=== PATIENT | male | born 1950 | race Caucasian/White ===

== ENCOUNTER 2024-01-14 18:58 | Emergency (ER) | payer MEDICARE, OTHER, SELFPAY ==
[2024-01-14 19:00] VITALS: BP 140/75
[2024-01-14] MEDS: ADACEL 0.5 ML IM (21:39)
--- NOTE | 2024-01-14 22:56 | ED.SKININJ ---
HPI-Injury
General
Chief Complaint: Skin Surface Trauma
Source: patient
Exam Limitations: none
Time Seen by Provider: 01/14/24 20:50
Nursing documentation reviewed up to this point in time: agreed with
Travel History
Have you had any contact with someone who has COVID-19?: No
Do you have any symptoms of coronavirus? Fever > 100 degrees, chills, cough, shortness of breath, sore throat, loss of taste or smell, muscle aches, or headache?: No
History of Present Illness-Injury
Is this injury a work related problem?: No
Is pt an associate of [facility]?: No
Initial Injury comments:
Accidentally cut finger with knife. Unable to get bleeding to stop. On xarelto for afib. Injury occurred this afternoon. Brought self to ED for eval.
Past History
Past History
ED Past Medical History: Arrthythmia (afib), Cancer (prostate CA) and HTN
ED Past Surgical History: Cardiac (cardioversion), Orthopedic and Other (Hip surgery. prostate surgery, )
Social History
Tobacco: Non-smoker
Drug: None
Living: with family
Family History
Family History: Other (No significant)
Review of Systems
Review of Systems
Allergies reviewed?: Yes
All Other Systems: ROS reviewed and negative except as documented in HPI and ROS
Constitutional: Reports no symptoms
Musculoskeletal: Reports no symptoms
Skin: Reports other (laceration to left distal index finger)
Neurological: Reports no symptoms
Psychiatric: Reports no symptoms
Skin Exam
Laceration
Left Distal Second Finger:
Length in cm: 1
Orientation: diagonal
Type of Laceration: simple
Any active bleeding?: no active bleeding
Distal skin color and temperature: normal-warm & good color
Normal distal neurovascular exam: Yes
Range of motion: full
Phy Exam
General Physical Exam
General Presentation: well appearing and no apparent distress
General age: appears stated age
General Skin: warm and dry
General Habitus: normal
General Mental: alert
Musculoskeletal Exam
Musculoskeletal Exam: full ROM and neuro vasc intact
Skin Exam
Skin Exam: normal color, warm/dry and no rash
Psychiatric Exam
Psychiatric Exam: normal mood/affect
Course
Orders/Labs/Results
Orders:
Orders
01/14/24 20:17
Acetaminophen [Tylenol] 1,000 mg .ROUTE .STK-MED ONE
01/14/24 21:24
Aluminium Finger Splint Left ONCE
Tetanus/Diphth/Acelpertussis [Adacel] 0.5 ml IM .ONCE ONE
Vital Signs
Initial and Last Documented VS:
Initial Vital Signs
Temp Pulse Resp BP Pulse Ox
98.4 F 52 16 140/75 98
01/14/24 19:00 01/14/24 19:00 01/14/24 19:00 01/14/24 19:00 01/14/24 19:00
Last Documented Vital Signs
Temp Pulse Resp BP Pulse Ox
98.4 F 52 16 140/75 98
01/14/24 19:00 01/14/24 19:00 01/14/24 19:00 01/14/24 19:00 01/14/24 19:00
Procedures
Laceration Closure
Left Distal Second Finger:
Status of Wound: clean
Description of Wound Edges: sharp
Preparation: cleaned with saline
Revision/Debridement: routine- no revision
Wound exploration: explored to base- no FB
Type of Closure: Dermabond-skin glue
*Critical Care Note
Total Time (30-74mins, 75-104mins- exclusive of procedures): Not Applicable
ED Attending Note
-
Portions of this chart may have been created with voice recognition software.� Occasional wrong word or��sound alike� substitutions may have occurred due to the inherent limitations of voice recognition software.
Discharge Plan
Departure
Patient Disposition: Home (Routine Discharge)
Date of Disposition: 01/14/24
Time of Disposition: 21:25
Patient with high blood pressure during this ER visit?: No
Condition: Good
Covid-19: Not Applicable
Discharge Problem:
Finger laceration
Instructions: Laceration Repair With Glue (DC)
Prescriptions:
No Action
therapeutic multivitamin Tablet
1 tab PO DAILY
paroxetine HCl 40 mg Tablet
40 mg PO DAILY
acetaminophen 500 mg Capsule
1,000 mg PO Q4HPRN PRN (Reason: mild pain)
omega 4-usq-dyk-fish oil [Fish Oil] 1,000 mg (120 mg-180 mg) Capsule
1 cap PO DAILY
Xarelto 20 mg Tablet
20 mg PO DAILY
Entresto 24-26 mg Tablet
0.5 tab PO BID
melatonin 3 mg Tablet
9 mg PO HS
metoprolol succinate 50 mg Tablet Extended Release 24 Hr
50 mg PO DAILY Qty: 30 0RF
cefdinir 300 mg capsule
300 mg PO BID Qty: 8 0RF
doxycycline hyclate 100 mg capsule
100 mg PO BID Qty: 0 0RF
Rx Instructions:
take it for 2 more days
Referrals:
Pauline James MD [Family Provider] - As needed
Interventions
Interventions:
*Risk Screen - Suicide Last Done: 01/14/24 19:00
*General Assessment Last Done: 01/14/24 19:00
*Neglect/Abuse Screening Last Done: 01/14/24 19:00
*Nursing Disposition Last Done: 01/14/24 21:53
ED-Skin Assessment Last Done: 01/14/24 21:52
Discharge Date and Time
Discharge Date/Time: 01/14/24 21:53
Print Language: COSTA RICAN
== END 2024-01-14 21:53 | disposition home or self-care (01) ==
LOC: EMR 18:58
PROVIDERS: EMERGENCY PHYSICIAN Emergency Medicine; FAMILY PHYSICIAN Internal Medicine
DX: S61.211A Laceration without foreign body of left index finger without damage to nail, initial encounter (principal); W26.0XXA Contact with knife, initial encounter; Z79.01 Long term (current) use of anticoagulants; Z23 Encounter for immunization
CPT/HCPCS: 99282; 90471; 12001; 90715

== ENCOUNTER 2024-06-01 11:09 | Emergency (ER) | payer MEDICARE, OTHER, SELFPAY ==
[2024-06-01 11:12] VITALS: BP 163/107
[2024-06-01 11:29] LABS: % Basophils 0.3 % (0-2); % Eosinophils 1.4 % (0-6); % Immature Granulocytes 0.3 % (0-0.5); % Lymphocytes 7.4 % (20.5-51.1); % Monocytes 8.1 % (1.7-9.3); % Neutrophils 82.5 % (42.2-75.2); Absolute Eosinophils 0.2 10^3/uL (0-0.7); Absolute Lymphocytes 0.8 10^3/uL (1.2-3.4); Absolute Monocytes 0.9 10^3/uL (0.1-0.6); Absolute Neutrophils 9.3 10^3/uL (1.4-6.5); Hematocrit 44.8 % (39.0-52.0); Hemoglobin 15.4 g/dL (13.0-18.0); Mean Corp Hgb Conc. 34.4 g/dL (33.0-37.0); Mean Corpuscular Hgb 31.4 pg (27.0-31.0); Mean Corpuscular Volume 91.4 fL (80.0-94.0); Mean Platelet Volume 9.7 fL (7.4-10.4); Nucleated Red Blood Cells % 0 % (-); Platelet Count 231 10^3/uL (130-400); Red Cell Dist. Width 12.5 % (11.5-14.5); White Blood Cell Count 11.3 10^3/uL (4.8-10.8)
[2024-06-01 11:44] LABS: ALT (SGPT) 19 U/L (0-50); AST (SGOT) 28 U/L (17-59); Albumin 4.7 g/dl (3.5-5.0); Alkaline Phosphatase 71 U/L (38-126); Blood Urea Nitrogen 14 mg/dl (9-20); Calcium 9.6 mg/dl (8.4-10.2); Carbon Dioxide 30 mmol/L (22-30); Chloride 100 mmol/L (98-107); Glucose 131 mg/dl (70-99); Potassium 5.1 mmol/L (3.5-5.1); Sodium 141 mmol/L (135-145); Total Bilirubin 1.3 mg/dl (0.2-1.3); Total Protein 7.3 g/dl (6.3-8.2); eGFR > 60.00
[2024-06-01 11:54] LABS: COVID-19 Antigen Negative (Negative)
[2024-06-01 13:04] VITALS: BMI 24.4
[2024-06-01] MEDS: DELTASONE 50 MG PO (13:10)
[2024-06-01] MEDS: DUONEB 3 ML INH (13:10)
--- NOTE | 2024-06-01 13:43 | ED.GENMED ---
History of Present Illness
General
Chief Complaint: Breathing Problem
Source: patient and spouse
Exam Limitations: none
Time Seen by Provider: 06/01/24 12:35
History of Present Illness
History of Present Illness:
74-year-old male who presents with cough, congestion and rattling in his chest. Patient and spouse states that the last time the patient progressed to pneumonia and they do not want that to happen. No fevers. Symptoms started Saturday. Has been
coughing up yellow sputum. Patient does admit to vaping daily
Past History
Past History
ED Past Medical History: Arrthythmia (afib), Cancer (prostate CA) and HTN
ED Past Surgical History: Cardiac (cardioversion), Orthopedic and Other (Hip surgery. prostate surgery, )
Social History
Tobacco: Vaping (Marijuana)
Drug: Marijuana
Living: with family
Family History
Family History: Other (No significant)
Phy Exam
Physical Exam
Physical Exam:
CONSTITUTIONAL Patient alert and oriented to person, place and time. Well-appearing. Vital signs reviewed.
HEAD atraumatic, normocephalic.
EYES eyelids normal to inspection, Pupils equally round and reactive to light, Extraocular muscles intact, Conjunctiva normal, Sclera normal.
NECK normal range of motion, Trachea midline, no jugular venous distention.
RESPIRATORY CHEST No respiratory distress noted, Chest expansion equal, wheezing bilaterally, scattered rhonchi.
BACK normal inspection, no obvious deformities
UPPER EXTREMITY range of motion normal, Motor strength normal, no cyanosis, no edema.
LOWER EXTREMITY range of motion normal, Motor strength normal, no cyanosis, no edema.
NEURO Speech normal, No focal motor deficits, [place] coma scale 15, Memory normal, Cranial Nerves intact to screening exam.
SKIN skin warm, dry, and normal in color.
PSYCHIATRIC patient oriented to person place and time, Normal affect.
Scores
Heart Failure Risk
Heart Failure Risk Score: Not Applicable
Course
Orders/Labs/Results
Orders:
Orders
06/01/24 11:14
Chest [CR Chest - 2 Views ] Urgent
Comment:
Reason For Exam: cough
06/01/24 11:19
COVID-19 Antigen Urgent
Source: Nasal Swab
06/01/24 11:22
Complete Blood Count/With Diff Urgent
Comprehensive Metabolic Panel Urgent
06/01/24 13:03
Ipratropium/Albuterol Sulfate [Duoneb] 3 ml INH R NOW STA
Prednisone [Deltasone] 50 mg PO NOW STA
06/01/24 13:44
LevoFLOXacin [Levaquin] 500 mg PO NOW STA
Abnormal Lab Results
06/01/24
11:22
WBC 11.3 H 10^3/uL
(4.8-10.8)
MCH 31.4 H pg
(27.0-31.0)
Absolute Neuts (auto) 9.3 H 10^3/uL
(1.4-6.5)
Absolute Lymphs (auto) 0.8 L 10^3/uL
(1.2-3.4)
Absolute Monos (auto) 0.9 H 10^3/uL
(0.1-0.6)
Neutrophils % 82.5 H %
(42.2-75.2)
Lymphocytes % 7.4 L %
(20.5-51.1)
Glucose 131 H mg/dl
(70-99)
06/01/24 11:22
06/01/24 11:22
Vital Signs
Initial and Last Documented VS:
Initial Vital Signs
Temp Pulse Resp BP Pulse Ox
97.5 F 104 20 163/107 93
06/01/24 11:12 06/01/24 11:12 06/01/24 11:12 06/01/24 11:12 06/01/24 11:12
Last Documented Vital Signs
Temp Pulse Resp BP Pulse Ox
97.5 F 97 18 133/85 93
06/01/24 11:12 06/01/24 14:11 06/01/24 14:11 06/01/24 14:11 06/01/24 14:11
MDM/Problems Addressed
MDM/Problems Addressed:
Reactive airway disease, bronchitis, possible early pneumonia
*Radiology
Radiology exam reviewed: preliminary read by ED provider and radiology read reviewed
*Pulse Oximetry
Patient hypoxic: yes (Mild, 94% on my evaluation)
*Critical Care Note
Total Time (30-74mins, 75-104mins- exclusive of procedures): Not Applicable
Data Reviewed
Source: patient and spouse
Further Testing Considered But Not Given:
Consider chest CT but will cover with antibiotics and steroids anyway
Patient Management
Escalation/DeEscalation of care consider admission/obs:
74-year-old male who vapes daily. Will cover with antibiotics, steroids and bronchodilators.
ED Attending Note
-
Portions of this chart may have been created with voice recognition software.� Occasional wrong word or��sound alike� substitutions may have occurred due to the inherent limitations of voice recognition software.
Discharge Plan
Departure
Patient Disposition: Home (Routine Discharge)
Date of Disposition: 06/01/24
Time of Disposition: 13:47
Patient with high blood pressure during this ER visit?: Yes
Discharge Problem:
Bronchitis, Exacerbation of reactive airway disease
Instructions: Wheezing, Acute bronchitis, BLOOD PRESSURE
Prescriptions:
New
prednisone 10 mg Tablet
See Rx Instructions .ROUTE .COMPLEX Qty: 30 0RF
Rx Instructions:
Take By Mouth:
40 mg daily x3 days, 30 mg daily x3 days,
20 mg daily x3 days, 10 mg daily x3 days.
levofloxacin 500 mg tablet
500 mg PO DAILY 7 Days Qty: 7 0RF
albuterol sulfate 2.5 mg /3 mL (0.083 %) solution for nebulization
2.5 mg inhalation Q4H PRN (Reason: shortness of breath or wheezing) Qty: 90 0RF
No Action
therapeutic multivitamin Tablet
1 tab PO DAILY
paroxetine HCl 40 mg Tablet
40 mg PO DAILY
acetaminophen 500 mg Capsule
1,000 mg PO Q4HPRN PRN (Reason: mild pain)
omega 2-osf-goc-fish oil [Fish Oil] 1,000 mg (120 mg-180 mg) Capsule
1 cap PO DAILY
Xarelto 20 mg Tablet
20 mg PO DAILY
Entresto 24-26 mg Tablet
0.5 tab PO BID
melatonin 3 mg Tablet
9 mg PO HS
metoprolol succinate 50 mg Tablet Extended Release 24 Hr
50 mg PO DAILY Qty: 30 0RF
cefdinir 300 mg capsule
300 mg PO BID Qty: 8 0RF
doxycycline hyclate 100 mg capsule
100 mg PO BID Qty: 0 0RF
Rx Instructions:
take it for 2 more days
Referrals:
Pauline James MD [Family Provider] -
Activity Restrictions/Additional Instructions:
Please see your doctor in the next 3 to 5 days for follow-up and reevaluation. Return immediately for difficulty breathing, fevers, coughing up blood or any other concerns. Please use albuterol every 4 hours as needed as discussed.
Your blood pressure was elevated while in the Emergency Department, please have your doctor re-evaluate it in the next 48 hours as untreated hypertension may lead to serious complications.
Please stop vaping as discussed.
Interventions
Interventions:
*Risk Screen - Suicide Last Done: 06/01/24 13:04
*General Assessment Last Done: 06/01/24 13:04
*Neglect/Abuse Screening Last Done: 06/01/24 13:04
ED- Fall Risk Assessment Last Done: 06/01/24 14:11
*ED COVID-19 Vaccine History Last Done: 06/01/24 13:04
*Nursing Disposition Last Done: 06/01/24 14:11
ED- Cardiac Assessment Last Done: 06/01/24 13:04
ED- Pulmonary Assessment Last Done: 06/01/24 13:04
Discharge Date and Time
Discharge Date/Time: 06/01/24 14:12
Print Language: WOLOF
[2024-06-01] MEDS: LEVAQUIN 500 MG PO (13:55)
[2024-06-01 14:11] VITALS: BP 133/85
--- NOTE | 2024-06-08 09:59 | OID.L.PAT ---
Pulmonary Nodule Pat Letter
- -
06/08/24
LETA MCMILLAN
[address]
[place] [id number]
Dealiliam GILLETTE,
A pulmonary nodule was seen on an imaging study done by [facility]. This was reviewed by the [facility] Pulmonary Nodule Advisory Board and the following recommendation was made:
Recommendation: Repeat Chest Xray with Nipple Markers
If you have any questions, please do not hesitate to contact your primary care physician. If you are in need of a Physician, you can go to [email or web address] and click on 'Find a Provider'. Type 'Family Medicine' in the search.
Oncology Nurse Navigator
[facility]
[phone]
--- NOTE | 2024-06-08 09:59 | OID.L.REC ---
Pulmonary Nodule Follow Up
- Recommendation
06/08/24
Pulmonary Nodule Review Recommendations
Your patient, LETA MCMILLAN, had a pulmonary nodule seen on an imaging study done on 06/01/24 in the [facility] Emergency Room.
This was reviewed by the [facility] Pulmonary Nodule Advisory Board and the following recommendation was made:
Recommendation: Repeat Chest Xray with Nipple Markers
If you have any questions please do not hesitate to contact us.
Sincerely,
Oncology Nurse Navigator
[facility]
[phone]
== END 2024-06-01 14:12 | disposition home or self-care (01) ==
LOC: EMR 11:09
PROVIDERS: Emergency Medicine; EMERGENCY PHYSICIAN Emergency Medicine; FAMILY PHYSICIAN Internal Medicine
DX: J20.9 Acute bronchitis, unspecified (principal); J45.901 Unspecified asthma with (acute) exacerbation; R91.1 Solitary pulmonary nodule; Z11.52 Encounter for screening for COVID-19; I48.91 Unspecified atrial fibrillation; I10 Essential (primary) hypertension; Z85.46 Personal history of malignant neoplasm of prostate; Z87.01 Personal history of pneumonia (recurrent); Z79.01 Long term (current) use of anticoagulants
CPT/HCPCS: 99283; 94640; 71046; 80053; 85025; 87811

== ENCOUNTER 2024-08-04 12:55 | Emergency (ER) | payer MEDICARE, OTHER, SELFPAY ==
[2024-08-04 13:02] VITALS: BP 142/90
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
== END 2024-08-04 15:05 | disposition home or self-care (01) ==
LOC: EMR 12:55
PROVIDERS: EMERGENCY PHYSICIAN Student in an Organized Health Care Education/Training Program; FAMILY PHYSICIAN Internal Medicine
DX: S40.011A Contusion of right shoulder, initial encounter (principal); V86.69XA Passenger of other special all-terrain or other off-road motor vehicle injured in nontraffic accident, initial encounter; F17.290 Nicotine dependence, other tobacco product, uncomplicated
CPT/HCPCS: 99283; 73030; 73080

== ENCOUNTER 2024-11-09 18:54 | Inpatient (IN) | payer MEDICARE, OTHER, SELFPAY ==
[2024-11-09] VITALS (9 sets, daily range): BP systolic 120–145; BP diastolic 65–105; BMI 24.8
[2024-11-09 15:31] LABS: % Basophils 0.3 % (0-2); % Eosinophils 0.1 % (0-6); % Immature Granulocytes 0.9 % (0-0.5); % Lymphocytes 5.7 % (20.5-51.1); % Monocytes 7.2 % (1.7-9.3); % Neutrophils 85.8 % (42.2-75.2); Absolute Immature Granulocytes 0.1 10^3/uL (0-0.05); Absolute Lymphocytes 0.9 10^3/uL (1.2-3.4); Absolute Monocytes 1.1 10^3/uL (0.1-0.6); Absolute Neutrophils 12.7 10^3/uL (1.4-6.5); Hematocrit 40.9 % (39.0-52.0); Mean Corp Hgb Conc. 34.2 g/dL (33.0-37.0); Mean Corpuscular Hgb 30.8 pg (27.0-31.0); Mean Corpuscular Volume 90.1 fL (80.0-94.0); Mean Platelet Volume 10.2 fL (7.4-10.4); Nucleated Red Blood Cells % 0 % (-); Platelet Count 358 10^3/uL (130-400); Red Blood Cell Count 4.54 10^6/uL (4.70-6.10); Red Cell Dist. Width 12.3 % (11.5-14.5); White Blood Cell Count 14.8 10^3/uL (4.8-10.8)
--- NOTE | 2024-11-09 15:36 | EDRN ---
Dr. Vasquez currently at the pts bedside
[2024-11-09 15:42] LABS: ALT (SGPT) 115 U/L (0-50); AST (SGOT) 107 U/L (17-59); Albumin 3.6 g/dl (3.5-5.0); Alkaline Phosphatase 87 U/L (38-126); Blood Urea Nitrogen 19 mg/dl (9-20); Calcium 8.9 mg/dl (8.4-10.2); Carbon Dioxide 22 mmol/L (22-30); Chloride 100 mmol/L (98-107); Estimated Creatinine Clearance > 125 ml/min; Glucose 142 mg/dl (70-99); Potassium 3.4 mmol/L (3.5-5.1); Sodium 135 mmol/L (135-145); Total Bilirubin 0.9 mg/dl (0.2-1.3); Total Protein 6.1 g/dl (6.3-8.2); eGFR > 60.00
[2024-11-09 16:06] LABS: COVID-19 Antigen Negative (Negative)
[2024-11-09] MEDS: DUONEB 3 ML INH ×2 (16:06→23:40)
[2024-11-09] MEDS: NSS 500 IV ×2 (16:06→19:20)
--- NOTE | 2024-11-09 17:23 | ED.GENMED ---
History of Present Illness
General
Chief Complaint: Breathing Problem
Source: patient and spouse
Exam Limitations: none
Time Seen by Provider: 11/09/24 15:33
History of Present Illness
History of Present Illness:
This is 74-year-old male with a history of A-fib, hypertension who presents profoundly weak with a persistent cough and a little bit shortness of breath. The patient used to vape. He since has quit. Patient states that he was diagnosed with the
flu about a week ago. He states that he just cannot get better. His cough has persisted and he has had some rattling in his chest. Patient spouse states that they were both on Tamiflu and she seemed to get a little better. She just has a little
bit of a cold. Patient states he is always in A-fib.
Past History
Past History
ED Past Medical History: Arrthythmia (afib), Cancer (prostate CA) and HTN
ED Past Surgical History: Cardiac (cardioversion), Orthopedic and Other (Hip surgery. prostate surgery, )
Social History
Tobacco: Former smoker
Drug: Marijuana
Living: with family
Family History
Family History: Other (No significant)
Phy Exam
Physical Exam
Physical Exam:
CONSTITUTIONAL Patient alert and oriented to person, place and time. Well-appearing. Vital signs reviewed.
HEAD atraumatic, normocephalic.
EYES eyelids normal to inspection, Extraocular muscles intact, Conjunctiva normal, Sclera normal.
NECK normal range of motion, Trachea midline, no jugular venous distention.
RESPIRATORY CHEST No respiratory distress noted, Chest expansion equal, wheezes and rhonchi bilaterally
CARDIOVASCULAR irregularly irregular and tachycardic
ABDOMEN abdomen nontender, Bowel sounds normal. No distention.
BACK normal inspection, no obvious deformities
UPPER EXTREMITY range of motion normal, Motor strength normal, no cyanosis, no edema.
LOWER EXTREMITY range of motion normal, Motor strength normal, no cyanosis, no edema.
NEURO Speech normal, No focal motor deficits, [place] coma scale 15, Memory normal, Cranial Nerves intact to screening exam.
SKIN skin warm, dry, and normal in color.
Scores
Heart Failure Risk
Heart Failure Risk Score: Not Applicable
Course
Orders/Labs/Results
Orders:
Orders
11/09/24 15:02
Electrocardiogram (*1) Urgent
Reason for Study: Shortness of Breath
11/09/24 15:03
EKG- Treatment ONCE
11/09/24 15:14
Complete Blood Count/With Diff Urgent
Comprehensive Metabolic Panel Urgent
11/09/24 15:24
CXR2 [CR Chest - 2 Views ] Urgent
Comment:
Reason For Exam: shortness of breath
11/09/24 15:40
COVID-19 Antigen Urgent
Source: Nasal Swab
Influenza A+B Rapid Molecular Urgent
FABIOLA Source: Nasal Swab
Specimen Description:
0.9% Sodium Chloride 500 ml [Nss] 500 ml IV BOLUS
Ipratropium/Albuterol Sulfate [Duoneb] 3 ml INH R NOW STA
11/09/24 17:22
Cefepime HCl [Maxipime] 2,000 mg IV NOW STA
11/09/24 17:24
Dexamethasone Sod Phosphate [Decadron] 10 mg IV NOW STA
Potassium Chloride 10% Elixir [KCl Elixir] 40 meq PO NOW STA
11/09/24 17:52
Lactic Acid Q4H
Comment: CANCEL 2nd LACTIC ACID IF 1st LACTIC ACID IS LESS THAN 2
Blood Culture Q30M
FABIOLA Source: Blood/Venous
Specimen Description:
Blood Culture Q30M
FABIOLA Source: Blood/Venous
Specimen Description:
11/09/24 18:10
Vancomycin [Vancocin] 2,000 mg 0.9% Sodium Chloride 500 ml [Nss] 500 ml IV NOW
11/09/24 18:30
Admit/Transfer Patient As Directed
Co-Sign Provider:
Level of Care: Inpatient admission
Assign to:: Telemetry
Physician / Group: Dr. Adrián Pappas/Hospitalists
Diagnosis: Pneumonia, Concern for Sepsis
Reason for Telemetry: Arrhythmia
Date to Stop Telemetry: 11/12/24
Time to Stop Telemetry: 11:00
Reason for Hospitalization: Pneumonia, Concern for Sepsis
Expected length of stay greater than two midnights?: Yes
ELOS- Estimated Length of Stay in days: 3
I certify the patient meets the requirements for IP care: Yes
11/09/24 18:32
Code Status As Directed
Resuscitation Status: Full Code
11/09/24 18:38
Echo 2D MMode Color/Doppler Routine
Reason for Study: CHF. Presenting with SOB.
0.9% Sodium Chloride 500 ml [Nss] 500 ml IV BOLUS
11/09/24 18:47
Xopenex Reason for Use As Directed
Reason for ordering Xopenex instead of Albuterol: Tachycardia
11/09/24 20:00
Doxycycline Hyclate [Vibramycin] 100 mg 0.9% Sodium Chloride 250 ml [Nss] 250 ml IV Q12H
Guaifenesin [Mucinex] 1,200 mg PO Q12
Ipratropium Nebs [Atrovent Nebules] 0.5 mg INH R TID
Ipratropium/Albuterol Sulfate [Duoneb] 3 ml INH R QID
Levalbuterol [Xopenex 0.63 mg Inhalant Solution] 0.63 mg INH R TID
11/10/24 08:00
CefTRIAXone [Rocephin] 1,000 mg IV Q24H
11/12/24 11:00
DC Protocol for Telemetry ONCE
Abnormal Lab Results
11/09/24
15:14
WBC 14.8 H 10^3/uL
(4.8-10.8)
RBC 4.54 L 10^6/uL
(4.70-6.10)
Abs Immat Gran (auto) 0.1 H 10^3/uL
(0-0.05)
Absolute Neuts (auto) 12.7 H 10^3/uL
(1.4-6.5)
Absolute Lymphs (auto) 0.9 L 10^3/uL
(1.2-3.4)
Absolute Monos (auto) 1.1 H 10^3/uL
(0.1-0.6)
Immature Gran % 0.9 H %
(0-0.5)
Neutrophils % 85.8 H %
(42.2-75.2)
Lymphocytes % 5.7 L %
(20.5-51.1)
Potassium 3.4 L mmol/L
(3.5-5.1)
Creatinine 0.5 L mg/dL
(0.7-1.3)
Glucose 142 H mg/dl
(70-99)
AST 107 H U/L
(17-59)
ALT 115 H U/L
(0-50)
Total Protein 6.1 L g/dl
(6.3-8.2)
11/09/24 15:14
11/09/24 15:14
Vital Signs
Initial and Last Documented VS:
Initial Vital Signs
Temp Pulse Resp BP Pulse Ox
97.6 F 76 30 137/100 93
11/09/24 15:00 11/09/24 15:00 11/09/24 15:00 11/09/24 15:00 11/09/24 15:00
Last Documented Vital Signs
Temp Pulse Resp BP Pulse Ox
98.6 F 121 23 143/105 93
11/09/24 15:34 11/09/24 19:00 11/09/24 19:00 11/09/24 19:00 11/09/24 19:00
MDM/Problems Addressed
MDM/Problems Addressed:
Pneumonia, A-fib with RVR, hypokalemia
*Radiology
Radiology exam reviewed: preliminary read by ED provider (Pneumonia)
*Pulse Oximetry
Patient hypoxic: yes
*EKG
Interpreted by ED Provider?: Yes
Interpretation: abnormal
Rate: tachycardiac
Rhythm: a-fib and PVC's
Ischemia: non-specific ST changes
*Siebel Administrator Interpretation
Rate: tachycardiac
Interpretation: abnormal
Rhythm: a-fib
*Critical Care Note
Total Time (30-74mins, 75-104mins- exclusive of procedures): Not Applicable
Data Reviewed
Review of Other/Old Records Reveals: Discharge Summary (Prior discharge summary reviewed from September 2023)
Source: patient and spouse
Patient Management
Discussion with other providers: Hospitalist
Escalation/DeEscalation of care consider admission/obs:
Pneumonia by chest x-ray. Suspect post lungs of pneumonia. Given his A-fib, weakness and history of smoking, continue bronchodilators, antibiotics and admit
ED Attending Note
-
Portions of this chart may have been created with voice recognition software.� Occasional wrong word or��sound alike� substitutions may have occurred due to the inherent limitations of voice recognition software.
Discharge Plan
Departure
Patient Disposition: Admit
Date of Disposition: 11/09/24
Time of Disposition: 17:23
Admit to: Telemetry
Presentation/result/management discussed w/ accepting MD/DO: Hospitalist
Discharge Problem:
Pneumonia, post-influenza pneumonia
Interventions
Interventions:
*Risk Screen - Suicide Last Done: 11/09/24 15:34
*General Assessment Last Done: 11/09/24 15:34
*Neglect/Abuse Screening Last Done: 11/09/24 15:34
ED- Fall Risk Assessment Last Done: 11/09/24 15:34
*ED COVID-19 Vaccine History Last Done: 11/09/24 15:34
ED- Cardiac Assessment Last Done: 11/09/24 15:34
ED- Pulmonary Assessment Last Done: 11/09/24 15:34
--- NOTE | 2024-11-09 17:46 | HPS.HSE ---
Family Physician
-
Family Physician: Pauline James
Chief Complaint
-
Cough, Chest Congestion, Shortness of Breath
History of Present Illness
74 y/o male with past medical history of paroxysmal atrial fibrillation, chronic heart failure, hypertension, prostate cancer, COVID history, anxiety and depression, presented with cough, chest congestion and shortness of breath. Patient says that
he felt really sick with fatigue, cough, wheezing and SOB about 8 days ago, he then went to urgent care the next day (Saturday) and he said at that time he was diagnosed with Influenza A. Patient says he was prescribed Tamiflu for a 5-day course,
which he completed. Patient says his chest congestion then improved, but then returned. Now his SOB has been getting worse. He denied any fever, chest pain, abdominal pain, nausea or vomiting.
Medical History
Past Medical History
Past Medical History: Reports Other (As per HPI above)
Past Surgical History: Reports None
Social History
Tobacco: Former Smoker
Alcohol: Former
Drug: Former User
Family History
Family History: Not pertinent
Allergies / Home Medications
Allergies reflects when Allergies were last updated in [employer] [place].
Home Medications with original date entered in [employer] [place]
Allergy/Medication List:
Allergies
Allergy/AdvReac Type Severity Reaction Status Date / Time
No Known Allergies Allergy Verified 08/04/24 13:01
Home Medications
acetaminophen 500 mg capsule 1,000 mg PO Q4HPRN PRN mild pain 09/19/23
omega 2-zfl-tof-fish oil 1,000 mg (120 mg-180 mg) capsule (Fish Oil) 1 cap PO DAILY High Cholesterol 09/19/23
rivaroxaban 20 mg tablet (Xarelto) 20 mg PO DAILY Blood Clot Prevention/Tx 09/19/23
sacubitril 24 mg-valsartan 26 mg tablet (Entresto) 0.5 tab PO BID Heart Failure 09/19/23
therapeutic multivitamin 1 tab PO DAILY Supplement 09/19/23
albuterol sulfate 2.5 mg/3 mL (0.083 %) solution for nebulization 2.5 mg inhalation Q4HPRN PRN shortness of breath or wheezing 11/09/24
metoprolol succinate 50 mg tablet,extended release 24 hr 50 mg PO BID 11/09/24
paroxetine HCl 30 mg tablet 30 mg PO BID 11/09/24
trazodone 50 mg tablet 25 mg PO HSPRN PRN sleep 11/09/24
Review of Systems
-
A 12 point ROS was completed and negative except as noted: Yes
Physical Exam
Vital Signs
Vital Signs
Temp Pulse Resp BP Pulse Ox
98.6 F 114 18 141/92 96
11/09/24 15:34 11/09/24 15:34 11/09/24 15:34 11/09/24 15:34 11/09/24 15:34
Physical Exam
General: No Apparent Distress, Comfortable and Conversant
HEENT: NormoCephalic and Moist mucous membranes
Respiratory: Rhonchi
Cardiac: S1/S2 and Tachycardia
GI: Soft, Non Tender and Normal Bowel Sounds
Musculoskeletal: No Cyanosis and No Edema
Skin: Warm and Dry
Neuro: Awake, Alert, AO x 3 and Nonfocal/grossly intact
Psych: Calm and Intact Judgment/Insight
Laboratory Results
-
11/09/24 15:14
11/09/24 15:14
Laboratory Results
Total Bilirubin 0.9 mg/dl (0.2-1.3) 11/09/24 15:14
AST 107 U/L (17-59) H 11/09/24 15:14
ALT 115 U/L (0-50) H 11/09/24 15:14
Alkaline Phosphatase 87 U/L (38-126) 11/09/24 15:14
Impression/Plan
-
Assessment/Plan
#Concern for Sepsis Secondary to Pneumonia
#Suspected Right Lower Lobe Pneumonia
#History of RLL Pneumonia
#Influenza A
#Acute Hypoxic Respiratory Insufficiency Secondary to the Above
#History of COVID-pneumonia with post-COVID cough
-Rocephin and Doxycycline
-Patient already finished a 5-day course of Tamiflu within the 1 week prior to arrival
-Sputum Cultures
-Check blood cultures given leukocytosis and tachycardia
-Levalbuterol and Ipratropium QID (no albuterol given tachycardia)
-IV fluids given but careful given history of CHF
-Mucinex
-Check QTc in the morning
#Mild Hypokalemia
-Replace
-Monitor CMP
-Check magnesium
#Atrial fibrillation
- Continue Xarelto
- Monitor on telemetry given tachycardia, leukocytosis, and A-Fib
#Elevated AST/ALT
-Possibly from infection/pneumonia/Influenza/recent Tamiflu treatment
-Monitor CMP
#Moderate aortic regurgitation
#Mitral valve prolapse
#Mild to moderate mitral regurgitation
#Cardiomegaly on Chest X-Ray
-Continue Entresto
-Check echocardiogram
#Essential hypertension
#Prostate cancer
#Anxiety/depression
-Continue paroxetine
Code Status: Full code
DVT Prophylaxis: Xarelto
Regular diet
[2024-11-09 18:26] LABS: Lactic Acid 1.9 mmol/L (0.7-2.0)
[2024-11-09] MEDS: VANCOCIN 540 MG IV (18:29)
[2024-11-09] MEDS: DECADRON 10 MG IV (18:32)
[2024-11-09] MEDS: KCL ELIXIR 40 MEQ PO (18:32)
[2024-11-09] MEDS: MAXIPIME 2000 MG IV (18:32)
[2024-11-09] MEDS: MUCINEX 1200 MG PO (20:34)
[2024-11-09] MEDS: VIBRAMYCIN 260 MG IV (20:34)
[2024-11-09] MEDS: XOPENEX 0.63 MG INHALANT SOLUTION INH (20:39)
[2024-11-09] MEDS: ATROVENT NEBULES 0.5 MG INH (20:39)
[2024-11-09 23:04] LABS: Troponin I 0.013 ng/ml
[2024-11-09] MEDS: ENTRESTO 24 MG/26 MG 0.5 TAB PO (23:40)
[2024-11-09] MEDS: PAXIL 30 MG PO (23:40)
[2024-11-09] MEDS: TOPROL XL 50 MG PO (23:40)
[2024-11-10] VITALS (16 sets, daily range): BP systolic 106–145; BP diastolic 79–108; BMI 24.6
--- NOTE | 2024-11-10 | EDRN ---
Report received, patient had night time meds and used urinal to urinate, emptied it and left at bedside incase he needs it again, lights turned down, no further complaint at this time.
--- NOTE | 2024-11-10 03:43 | EDRN ---
Emptied patients urinal, patient has no needs and is resting comfortably
[2024-11-10 04:59] LABS: % Basophils 0.2 % (0-2); % Immature Granulocytes 1.2 % (0-0.5); % Lymphocytes 4.8 % (20.5-51.1); % Neutrophils 89.8 % (42.2-75.2); Absolute Immature Granulocytes 0.1 10^3/uL (0-0.05); Absolute Lymphocytes 0.4 10^3/uL (1.2-3.4); Absolute Monocytes 0.3 10^3/uL (0.1-0.6); Absolute Neutrophils 7.7 10^3/uL (1.4-6.5); Hematocrit 41.3 % (39.0-52.0); Hemoglobin 13.6 g/dL (13.0-18.0); Mean Corp Hgb Conc. 32.9 g/dL (33.0-37.0); Mean Corpuscular Hgb 30.7 pg (27.0-31.0); Mean Corpuscular Volume 93.2 fL (80.0-94.0); Mean Platelet Volume 9.8 fL (7.4-10.4); Nucleated Red Blood Cells % 0 % (-); Platelet Count 363 10^3/uL (130-400); Red Blood Cell Count 4.43 10^6/uL (4.70-6.10); Red Cell Dist. Width 12.6 % (11.5-14.5); White Blood Cell Count 8.5 10^3/uL (4.8-10.8)
[2024-11-10 05:16] LABS: ALT (SGPT) 106 U/L (0-50); AST (SGOT) 80 U/L (17-59); Albumin 3.3 g/dl (3.5-5.0); Alkaline Phosphatase 67 U/L (38-126); Blood Urea Nitrogen 15 mg/dl (9-20); Calcium 8.8 mg/dl (8.4-10.2); Carbon Dioxide 26 mmol/L (22-30); Chloride 103 mmol/L (98-107); Estimated Creatinine Clearance > 125 ml/min; Glucose 160 mg/dl (70-99); Potassium 4.2 mmol/L (3.5-5.1); Sodium 138 mmol/L (135-145); Total Bilirubin 0.8 mg/dl (0.2-1.3); Total Protein 6.1 g/dl (6.3-8.2); eGFR > 60.00
[2024-11-10 05:27] LABS: NT-proBNP 7880 pg/ml; Troponin I 0.018 ng/ml
--- NOTE | 2024-11-10 07:15 | W.PN.HOSP.TC ---
Today's Communication/Plan
-
Patient is feeling better, however with rapid heart rate still, no PE on CT Chest
Despite beta harshad still with AFib RVR
Will therefore consult cardiology given the above
Continue antibiotics
Assessment / Plan
Assessment / Plan
Physical Exam
General: No Apparent Distress, Comfortable and Conversant
HEENT: NormoCephalic and Moist mucous membranes
Respiratory: Rhonchi - IMPROVED
Cardiac: S1/S2 and Tachycardia
GI: Soft, Non Tender and Normal Bowel Sounds
Musculoskeletal: No Cyanosis and No Edema
Skin: Warm and Dry
Neuro: Awake, Alert, AO x 3 and Nonfocal/grossly intact
Psych: Calm and Intact Judgment/Insight
Assessment/Plan
#Concern for Sepsis Secondary to Pneumonia
#Suspected Right Lower Lobe Pneumonia
#History of RLL Pneumonia
#Influenza A
#Acute Hypoxic Respiratory Insufficiency Secondary to the Above
#History of COVID-pneumonia with post-COVID cough
-Rocephin and Doxycycline
-Patient already finished a 5-day course of Tamiflu within the 1 week prior to arrival
-Sputum Cultures
-Check/follow-up blood cultures given leukocytosis and tachycardia
-Levalbuterol and Ipratropium QID (no albuterol given tachycardia)
-IV fluids given but careful given history of CHF
-Mucinex
-CT Chest PE study given persistent tachycardia, and given patient's hypoxia and SOB: no PE, RLL pneumonia confirmed
#Mild Hypokalemia - RESOLVED
-Replace
-Monitor CMP
-Magnesium normal
#Atrial fibrillation
- Continue Xarelto
- Monitor on telemetry given tachycardia, leukocytosis, and A-Fib
- Given rapid heart rates, concern for A-Fib with RVR, will consult cardiology
#Elevated AST/ALT
-Possibly from infection/pneumonia/Influenza/recent Tamiflu treatment
-Monitor CMP
#Moderate aortic regurgitation
#Mitral valve prolapse
#Mild to moderate mitral regurgitation
#Cardiomegaly on Chest X-Ray
-Continue Entresto
-Check echocardiogram
#Essential hypertension
#Prostate cancer
#Anxiety/depression
-Continue paroxetine
Code Status: Full code
DVT Prophylaxis: Xarelto
Regular diet
Anticipated Discharge: > 48 hours
Subjective/Interval History
-
Date of Service: November 10, 2024
Patient was seen and examined. He stated that he was feeling much better than yesterday, and is much less short of breath. He denied any chest pain or any other symptoms.
Objective Data
-
Labs:
Laboratory Results
11/10/24
04:30
WBC 8.5
Hgb 13.6
Hct 41.3
Plt Count 363
Sodium 138
Potassium 4.2
Chloride 103
Carbon Dioxide 26
BUN 15
Creatinine 0.5 L
Glucose 160 H
Calcium 8.8
Total Bilirubin 0.8
AST 80 H
ALT 106 H
Alkaline Phosphatase 67
Vital Signs:
Vital Signs
Temp Pulse Resp BP Pulse Ox
97.6 F 125 26 140/91 93
11/10/24 00:55 11/10/24 04:34 11/10/24 04:34 11/10/24 04:34 11/10/24 04:34
I&O
11/09/24 11/10/24 11/11/24
06:59 06:59 06:59
Output Total 500 / 500
Balance -500 / -500
[2024-11-10] MEDS: MUCINEX 1200 MG PO ×2 (08:05→19:38)
[2024-11-10] MEDS: THERAGRAN 1 TABLET PO (08:05)
[2024-11-10] MEDS: TOPROL XL 50 MG PO ×2 (08:06→17:50)
[2024-11-10] MEDS: XARELTO 20 MG PO (08:06)
[2024-11-10] MEDS: STERILE WATER FOR INJECTION 10 ML IV (08:06)
[2024-11-10] MEDS: ROCEPHIN 1000 MG IV (08:06)
[2024-11-10] MEDS: DUONEB 3 ML INH ×4 (08:07→20:22)
[2024-11-10] MEDS: XOPENEX 0.63 MG INHALANT SOLUTION INH ×3 (08:07→20:22)
[2024-11-10] MEDS: ATROVENT NEBULES 0.5 MG INH ×2 (08:07→14:02)
[2024-11-10] MEDS: PAXIL 30 MG PO ×2 (08:14→19:38)
[2024-11-10] MEDS: ENTRESTO 24 MG/26 MG 0.5 TAB PO ×2 (08:14→19:44)
[2024-11-10] MEDS: VIBRAMYCIN 260 MG IV ×2 (08:18→20:43)
[2024-11-10 11:21] LABS: Troponin I 0.013 ng/ml
--- NOTE | 2024-11-10 16:34 | CON.CAR ---
Consultation
Consultation Request
Date/Time Consultation Requested: 11/10/2024
Date/Time Consultation Performed: 11/10/2024
Requesting Provider: Dr. Pappas
Performing Provider: Dr. Gallagher primary utility specialist Dr. Allen
Reason for Consultation: A-fib with RVR
Medical History
-
Chief Complaint: Shortness of breath
History of Present Illness:
74-year-old male with past medical history of atrial fibrillation on Xarelto, heart failure with improved ejection fraction (prior 38%), moderate aortic regurgitation, mitral valve prolapse, mild to moderate mitral regurgitation, hypertension,
prostate cancer, presenting with persistent shortness of breath found to have Inlfluenza A/PNA. He has no sense of palpitations unless he tries to walk around. He states typically he has elevated heart rates when he is ill and then will suddenly
feel better. He has no chest pain or pressure. He has not had good p.o. intake over the last 2 weeks. He is compliant with his medications but was supposed to have a back procedure on the third which was canceled so he did transiently hold
Xarelto for that procedure 2 days prior.
Past Medical History
Past Medical History: Arrhythmias (Persistent atrial fibrillation), CHF (Heart failure with preserved ejection fraction-echo 10/22/2022 LVEF 60%) and Other (Chronic anticoagulation on Xarelto, moderate aortic regurgitation, mitral valve prolapse
with moderate regurgitation, prostate cancer)
Past Surgical History: Cardiac (DC cardioversion)
Social History
Tobacco: Non-Smoker
Alcohol: None
Drug: None
Family History
Family History: Reviewed & Not Pertinent
Allergies / Home Medications
Allergy/AdvReac Type Severity Reaction Status Date / Time
No Known Allergies Allergy Verified 08/04/24 13:01
�Medication �Instructions �Recorded �Confirmed �Type
acetaminophen 500 mg capsule 1,000 mg PO Q4HPRN PRN mild pain 09/19/23 11/09/24 History
omega 0-qwn-tjz-fish oil 1,000 mg 1 cap PO DAILY High Cholesterol 09/19/23 11/09/24 History
(120 mg-180 mg) capsule (Fish Oil)
rivaroxaban 20 mg tablet (Xarelto) 20 mg PO DAILY Blood Clot 09/19/23 11/09/24 History
Prevention/Tx
sacubitril 24 mg-valsartan 26 mg 0.5 tab PO BID Heart Failure 09/19/23 11/09/24 History
tablet (Entresto)
therapeutic multivitamin 1 tab PO DAILY Supplement 09/19/23 11/09/24 History
albuterol sulfate 2.5 mg/3 mL 2.5 mg inhalation Q4HPRN PRN 11/09/24 11/09/24 History
(0.083 %) solution for nebulization shortness of breath or wheezing
metoprolol succinate 50 mg 50 mg PO BID 11/09/24 11/09/24 History
tablet,extended release 24 hr
paroxetine HCl 30 mg tablet 30 mg PO BID 11/09/24 11/09/24 History
trazodone 50 mg tablet 25 mg PO HSPRN PRN sleep 11/09/24 11/09/24 History
Review of Systems
-
All other systems: Negative unless noted
Physical Exam
Vital Signs
Temp Pulse Resp BP Pulse Ox
98 F 125 19 130/90 93
11/10/24 11:55 11/10/24 16:15 11/10/24 16:15 11/10/24 16:14 11/10/24 16:15
Lab Results
11/10/24 04:30
11/10/24 04:30
Troponin I 0.013 ng/ml D 11/10/24 10:34
Rst-W-Nnzxhjbzljl Pept 7880 pg/ml 11/10/24 04:30
Physical Exam
General: Well Developed, Well Nourished and No Apparent Distress
Respiratory: Rhonchi (Diffuse)
Cardiac: S1/S2 and Irregular Rhythm (Tachycardic rate); Negative Murmur, Rub or Peripheral Edema
GI: Soft
Genito-urinary: Costovertebral Angle Tend and No Costovertebral Tender
Musculoskeletal: No Clubbing, No Cyanosis and No Edema
Neuro: AO x 3
Impression / Plan
-
74-year-old gent with a past medical history of permanent atrial fibrillation on Xarelto, heart failure with recovered EF, mitral, aortic and tricuspid valve disease, pulmonary hypertension and dilated aortic root who presented with influenza A
pneumonia. We are asked to assist in rate control.
Atrial fibrillation with rapid ventricular response: Rates are 110s to 130s.
-He has no sense of it. Blood pressure is stable. .
-Will increase metoprolol to succinate to 100 mg p.o. twice daily. If needed we could cautiously add diltiazem but will try to avoid given history of reduced ejection fraction in the past. Continue Xarelto.
Heart failure with recovered ejection fraction:
-Appears euvolemic, has had poor intake over the last couple of weeks.
-Continue GDMT
-Keep even
Severe pulmonary hypertension: RV enlargement with normal function seen. Monitor over time.
Pneumonia: In the setting of influenza A, care as per medicine.
Dilated ascending aorta and aortic root: On beta-harshad but will increase, keep blood pressure less than 130/80
Data reviewed:
TTE 11/10/2024 LVEF 50 to 55%, enlarged RV with normal function, mild to moderate mitral regurgitation, mild aortic regurgitation, moderate tricuspid regurgitation with severe pulmonary hypertension, dilated aortic root and ascending aorta.
Data Reviewed
-
EKG: Tracing Personally Visualized and interpreted (Atrial fibrillation with rapid ventricular spots nonspecific ST wave changes,Compared to the prior on 11/09/2024, abberant conduction is no longer seen) and Discussed with Family (Son at the bedside
discussed our plan)
Radiology: Report Reviewed by me (CT chest 11/10/2024 no PE, interstitial and confluent alveolar airspace disease consistent with right lower lobe pneumonia. Likely scarring seen in the left lower lobe, lingular and posterior left upper lobe.)
[2024-11-10 16:55] LABS: Troponin I < 0.012 ng/ml
--- NOTE | 2024-11-10 17:00 | PTCARENOTE ---
Patient arrived on stretcher from ED, AAOx4 able to make needs known. 2 Ivs intact, flushed and patent. Patient on tele in afib. Patient medicated per NOV. Assessment documented in chart. Patient x1 OOB walked from stretcher to bed. Patient on 3L
NC.
[2024-11-10] MEDS: TOPROL XL 100 MG PO (19:45)
[2024-11-11] VITALS (7 sets, daily range): BP systolic 121–147; BP diastolic 80–100; PULSE 102; O2SAT 93; BMI 24.3
[2024-11-11] MEDS: STERILE WATER FOR INJECTION 10 ML IV (08:01)
[2024-11-11] MEDS: ENTRESTO 24 MG/26 MG 0.5 TAB PO ×2 (08:01→20:44)
[2024-11-11] MEDS: ROCEPHIN 1000 MG IV (08:01)
[2024-11-11] MEDS: PAXIL 30 MG PO ×2 (08:02→20:45)
[2024-11-11] MEDS: MUCINEX 1200 MG PO ×2 (08:02→21:15)
[2024-11-11] MEDS: XARELTO 20 MG PO (08:02)
[2024-11-11] MEDS: THERAGRAN 1 TABLET PO (08:02)
[2024-11-11] MEDS: VIBRAMYCIN 260 MG IV ×2 (08:03→20:49)
[2024-11-11] MEDS: TOPROL XL 100 MG PO ×2 (08:03→20:45)
[2024-11-11] MEDS: XOPENEX 0.63 MG INHALANT SOLUTION INH ×3 (08:08→20:17)
[2024-11-11] MEDS: DUONEB INH (08:09)
--- NOTE | 2024-11-11 08:57 | W.PN.HOSP.TC ---
Today's Communication/Plan
-
Patient is overall doing better, prefers 1 more day of PT/OT and monitoring
Anticipate discharge tomorrow
Assessment / Plan
Assessment / Plan
Physical Exam
General: No Apparent Distress, Comfortable and Conversant
HEENT: NormoCephalic and Moist mucous membranes
Respiratory: Rhonchi - IMPROVED
Cardiac: S1/S2 and Tachycardia
GI: Soft, Non Tender and Normal Bowel Sounds
Musculoskeletal: No Cyanosis and No Edema
Skin: Warm and Dry
Neuro: Awake, Alert, AO x 3 and Nonfocal/grossly intact
Psych: Calm and Intact Judgment/Insight
Assessment/Plan
#Concern for Sepsis Secondary to Pneumonia
#Suspected Right Lower Lobe Pneumonia
#History of RLL Pneumonia
#Influenza A
#Acute Hypoxic Respiratory Insufficiency Secondary to the Above
#History of COVID-pneumonia with post-COVID cough
-Rocephin and Doxycycline
-Patient already finished a 5-day course of Tamiflu within the 1 week prior to arrival
-Sputum Cultures unable to be obtained as of yet
-Blood cultures with no growth to date
-Levalbuterol and Ipratropium QID (no albuterol given tachycardia)
-IV fluids given but careful given history of CHF
-Mucinex
-CT Chest PE study given persistent tachycardia, and given patient's hypoxia and SOB: no PE, RLL pneumonia confirmed
#Mild Hypokalemia - RESOLVED
-Replace
-Monitor CMP
-Magnesium normal
#Atrial fibrillation
- Continue Xarelto 20mg daily for OAC
- Monitor on telemetry given tachycardia, leukocytosis, and A-Fib on presentation
- Given rapid heart rates, concern for A-Fib with RVR, consulted cardiology
- Home Toprol XL increased now to 100 mg PO BID
#Elevated AST/ALT
-Possibly from infection/pneumonia/Influenza/recent Tamiflu treatment
-Monitor CMP
#Heart failure with improved ejection fraction
-Continue GDMT with Toprol XL and entresto
#Moderate aortic regurgitation
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
-Beta-harshad has been increased, keep blood pressure less than 130/80 mmHg
#Mitral valve prolapse
#Mild to moderate mitral regurgitation
#Cardiomegaly on Chest X-Ray
-Continue Entresto
-TTE 11/10/2024 LVEF 50 to 55%, enlarged RV with normal function, mild to moderate mitral regurgitation, mild aortic regurgitation, moderate tricuspid regurgitation with severe pulmonary hypertension, dilated aortic root and ascending aorta
#Severe pulmonary hypertension
-RV enlargement with normal function seen. Monitor over time.
#Essential hypertension
#Prostate cancer
#Anxiety/depression
-Continue paroxetine
Code Status: Full code
DVT Prophylaxis: Xarelto
Regular diet
Anticipated Discharge: Within 24 hours
Subjective/Interval History
-
Date of Service: November 11, 2024
Patient was seen and examined. He reported feeling much better than when he came in, did not get great sleep last night. He denied any chest pain.
Objective Data
-
Labs:
Laboratory Results
11/11/24
08:33
WBC Pending
Hgb Pending
Hct Pending
Plt Count Pending
Sodium Pending
Potassium Pending
Chloride Pending
Carbon Dioxide Pending
BUN Pending
Creatinine Pending
Glucose Pending
Calcium Pending
Total Bilirubin Pending
AST Pending
ALT Pending
Alkaline Phosphatase Pending
Vital Signs:
Vital Signs
Temp Pulse Resp BP Pulse Ox
98.3 F 88 15 134/94 93
11/11/24 07:47 11/11/24 08:16 11/11/24 08:16 11/11/24 07:47 11/11/24 08:30
I&O
11/10/24 11/11/24 11/12/24
06:59 06:59 06:59
Intake Total 740 / 740
Output Total 500 / 500
Balance -500 / -500 740 / 740
[2024-11-11 09:27] LABS: % Basophils 0.3 % (0-2); % Eosinophils 0.1 % (0-6); % Immature Granulocytes 1.4 % (0-0.5); % Lymphocytes 7.8 % (20.5-51.1); % Monocytes 7.8 % (1.7-9.3); % Neutrophils 82.6 % (42.2-75.2); Absolute Immature Granulocytes 0.2 10^3/uL (0-0.05); Absolute Lymphocytes 1.1 10^3/uL (1.2-3.4); Absolute Monocytes 1.1 10^3/uL (0.1-0.6); Absolute Neutrophils 12.1 10^3/uL (1.4-6.5); Hemoglobin 12.1 g/dL (13.0-18.0); Mean Corp Hgb Conc. 33.6 g/dL (33.0-37.0); Mean Corpuscular Hgb 30.7 pg (27.0-31.0); Mean Corpuscular Volume 91.4 fL (80.0-94.0); Mean Platelet Volume 10.4 fL (7.4-10.4); Nucleated Red Blood Cells % 0 % (-); Platelet Count 374 10^3/uL (130-400); Red Blood Cell Count 3.94 10^6/uL (4.70-6.10); Red Cell Dist. Width 12.8 % (11.5-14.5); White Blood Cell Count 14.6 10^3/uL (4.8-10.8)
--- NOTE | 2024-11-11 10:11 | W.PN.CD ---
Today's Communication / Plan
-
continue Toprol XL 100mg bid
please call us back with additional questions
Impression / Plan
-
74-year-old gent with a past medical history of permanent atrial fibrillation on Xarelto, heart failure with recovered EF, mitral, aortic and tricuspid valve disease, pulmonary hypertension and dilated aortic root who presented with influenza A
pneumonia. We are asked to assist in rate control.
Atrial fibrillation with rapid ventricular response
-No palps. Blood pressure is stable.
-We increased metoprolol to succinate to 100 mg p.o. twice daily. Continue Xarelto 20mg daily for OAC.
Heart failure with improved ejection fraction:
-Appears euvolemic, has had poor intake over the last couple of weeks.
-Continue GDMT with Toprol XL and entresto
-Keep even
Severe pulmonary hypertension: RV enlargement with normal function seen. Monitor over time.
Pneumonia: In the setting of influenza A, care as per medicine.
Mildly dilated ascending aorta and aortic root: On beta-harshad but will increase, keep blood pressure less than 130/80
Data reviewed:
TTE 11/10/2024 LVEF 50 to 55%, enlarged RV with normal function, mild to moderate mitral regurgitation, mild aortic regurgitation, moderate tricuspid regurgitation with severe pulmonary hypertension, dilated aortic root and ascending aorta.
Physical Exam
Vital Signs/Labs
Vital Signs
Temp Pulse Resp BP Pulse Ox
98.3 F 88 15 134/94 93
11/11/24 07:47 11/11/24 08:16 11/11/24 08:16 11/11/24 07:47 11/11/24 08:30
11/10/24 11/11/24 11/12/24
06:59 06:59 06:59
Actual Weight 99.8 kg 97.749 kg
11/11/24 08:33
Magnesium 2.0 mg/dl (1.6-2.3) 11/10/24 04:30
11/10/24
04:30
Jfp-L-Puwucaqrvvi Pept 7880
LAB Results
11/09/24 11/10/24 11/10/24
22:33 04:30 04:30
Troponin I 0.013 Cancelled 0.018 D
11/10/24 11/10/24
10:34 16:09
Troponin I 0.013 D < 0.012
Physical Exam
Constitutional: No acute distress and Comfortable
EENT: Moist mucous membranes
Cardiovascular: Pedal edema is absent, JVD pressure is normal, Rhythm/rate is irregular and Systolic murmur present
Respiratory: Respiratory effort normal
Neuro/Psych: AO x 3
Data Reviewed
-
Date of Service: November 11, 2024
EKG: Other (Tele: A fib 80s)
Labs: Labs Reviewed by me
[2024-11-11 12:36] LABS: Blood Urea Nitrogen 19 mg/dl (9-20); Calcium 8.7 mg/dl (8.4-10.2); Carbon Dioxide 24 mmol/L (22-30); Chloride 102 mmol/L (98-107); Estimated Creatinine Clearance > 125 ml/min; Glucose 111 mg/dl (70-99); Potassium 4.3 mmol/L (3.5-5.1); Sodium 135 mmol/L (135-145); eGFR > 60.00
--- NOTE | 2024-11-11 15:23 | CM ---
Patient seen bedside.
Patient Patient lives with spouse who is also sick with the flu.
Patient independent prior to admission without assistive devices.
Patient lives in a 2 story home with 3 steps to enter, bed and bath on second floor.
Patient feels very weak.
Patient drives.
Patient has not had VN since he had hip surgery.
PT eval recommending skilled rehab.
Spoke with patient and son, provided options list.
Son interested in private caregivers and home care, they will discuss skilled rehab.
Pamphlets and caregiver list provided.
Patient + for Flu, s/p Tamiflu.
PCP: Dr shah
Pharmacy: [facility]
Plan: skilled vs home with HC
[2024-11-11] MEDS: DESYREL 25 MG PO (20:45)
[2024-11-11] MEDS: MELATONIN PO (22:10)
[2024-11-12] VITALS (7 sets, daily range): BP systolic 120–152; BP diastolic 88–111; PULSE 88–99; O2SAT 94; BMI 24.3
[2024-11-12 06:55] LABS: % Basophils 0.2 % (0-2); % Eosinophils 0.1 % (0-6); % Immature Granulocytes 1.7 % (0-0.5); % Lymphocytes 5.1 % (20.5-51.1); % Monocytes 6.9 % (1.7-9.3); Absolute Immature Granulocytes 0.3 10^3/uL (0-0.05); Absolute Lymphocytes 0.8 10^3/uL (1.2-3.4); Absolute Monocytes 1.1 10^3/uL (0.1-0.6); Absolute Neutrophils 14.1 10^3/uL (1.4-6.5); Hematocrit 37.7 % (39.0-52.0); Hemoglobin 12.4 g/dL (13.0-18.0); Mean Corp Hgb Conc. 32.9 g/dL (33.0-37.0); Mean Corpuscular Hgb 31.1 pg (27.0-31.0); Mean Corpuscular Volume 94.5 fL (80.0-94.0); Mean Platelet Volume 10.1 fL (7.4-10.4); Nucleated Red Blood Cells % 0 % (-); Platelet Count 388 10^3/uL (130-400); Red Blood Cell Count 3.99 10^6/uL (4.70-6.10); Red Cell Dist. Width 12.6 % (11.5-14.5); White Blood Cell Count 16.4 10^3/uL (4.8-10.8)
[2024-11-12 07:24] LABS: ALT (SGPT) 168 U/L (0-50); AST (SGOT) 124 U/L (17-59); Alkaline Phosphatase 135 U/L (38-126); Blood Urea Nitrogen 21 mg/dl (9-20); Calcium 8.6 mg/dl (8.4-10.2); Carbon Dioxide 27 mmol/L (22-30); Chloride 101 mmol/L (98-107); Estimated Creatinine Clearance > 125 ml/min; Glucose 129 mg/dl (70-99); Potassium 4.5 mmol/L (3.5-5.1); Sodium 137 mmol/L (135-145); Total Protein 5.5 g/dl (6.3-8.2); eGFR > 60.00
--- NOTE | 2024-11-12 07:38 | W.PN.HOSP.TC ---
Today's Communication/Plan
-
Wheezing, concern for mucus/congestion/persistent pneumonia in the setting of worsened leukocytosis. No other source of infection present.
Will consult pulmonary, concern for underlying asthma/COPD, patient very SOB on exertion. No concern for DC and no PE on CT Chest this hospitalization, and patient is also on Xarelto
Repeat CXR
Assessment / Plan
Assessment / Plan
Physical Exam
General: No Apparent Distress, Comfortable and Conversant
HEENT: Normocephalic and Moist mucous membranes
Respiratory: Mild Wheezes
Cardiac: S1/S2 and Regular Rate
GI: Soft, Non Tender and Normal Bowel Sounds
Musculoskeletal: No Cyanosis and No Edema
Skin: Warm and Dry
Neuro: Awake, Alert, AO x 3 and Nonfocal/grossly intact
Psych: Calm and Intact Judgment/Insight
Assessment/Plan
#Concern for Sepsis Secondary to Pneumonia
#Suspected Right Lower Lobe Pneumonia
#History of RLL Pneumonia
#Influenza A
#Acute Hypoxic Respiratory Insufficiency Secondary to the Above
#History of COVID-pneumonia with post-COVID cough
-Although patient says he feels better, he appears somewhat SOB also with wheezing today -- concern for mucus/congestion/underlying asthma/slow recovery from pneumonia
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
-Given wheezing, and suspected persistent pneumonia, will repeat CXR and consult pulmonary, appreciate their evaluation and recommendations
-Rocephin and Doxycycline
-Patient already finished a 5-day course of Tamiflu within the 1 week prior to arrival
-Sputum Cultures unable to be obtained as of yet
-Blood cultures with no growth to date
-Levalbuterol and Ipratropium QID (no albuterol given tachycardia)
-IV fluids given but careful given history of CHF
-Mucinex
-CT Chest PE study given persistent tachycardia, and given patient's hypoxia and SOB: no PE, RLL pneumonia confirmed
#Mild Hypokalemia - RESOLVED
-Replace
-Monitor CMP
-Magnesium normal
#Atrial fibrillation
- Continue Xarelto 20mg daily for OAC
- Monitor on telemetry given tachycardia, leukocytosis, and A-Fib on presentation
- Given rapid heart rates, concern for A-Fib with RVR, consulted cardiology
- Home Toprol XL increased now to 100 mg PO BID
#Elevated AST/ALT
-Possibly from infection/pneumonia/Influenza/recent Tamiflu treatment
-Monitor CMP
#Heart failure with improved ejection fraction
-Continue GDMT with Toprol XL and entresto
#Moderate aortic regurgitation
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
-Beta-harshad has been increased, keep blood pressure less than 130/80 mmHg
#Mitral valve prolapse
#Mild to moderate mitral regurgitation
#Cardiomegaly on Chest X-Ray
-Continue Entresto
-TTE 11/10/2024 LVEF 50 to 55%, enlarged RV with normal function, mild to moderate mitral regurgitation, mild aortic regurgitation, moderate tricuspid regurgitation with severe pulmonary hypertension, dilated aortic root and ascending aorta
#Severe pulmonary hypertension
-RV enlargement with normal function seen. Monitor over time.
#Essential hypertension
#Prostate cancer
#Anxiety/depression
-Continue paroxetine
Code Status: Full code
DVT Prophylaxis: Xarelto
Regular diet
Anticipated Discharge: > 48 hours
Subjective/Interval History
-
Date of Service: November 12, 2024
Patient was seen and examined. He reported he was able to sleep last night, says he was overall feeling better but on exam seemed short of breath.
Objective Data
-
Labs:
Laboratory Results
11/12/24
06:06
WBC 16.4 H
Hgb 12.4 L
Hct 37.7 L
Plt Count 388
Sodium 137
Potassium 4.5
Chloride 101
Carbon Dioxide 27
BUN 21 H
Creatinine 0.6 L
Glucose 129 H
Calcium 8.6
Total Bilirubin 1.0
AST 124 H
ALT 168 H
Alkaline Phosphatase 135 H
Vital Signs:
Vital Signs
Temp Pulse Resp BP Pulse Ox
97.5 F 101 18 123/88 92
11/12/24 03:00 11/12/24 03:00 11/12/24 03:00 11/12/24 03:00 11/12/24 03:00
I&O
11/11/24 11/12/24 11/13/24
06:59 06:59 06:59
Intake Total 740 / 740 900 / 900
Output Total 300 / 300
Balance 740 / 740 600 / 600
[2024-11-12] MEDS: ATROVENT NEBULES 0.5 MG INH ×3 (08:39→19:21)
[2024-11-12] MEDS: XOPENEX 0.63 MG INHALANT SOLUTION INH ×3 (08:39→19:21)
[2024-11-12] MEDS: MUCINEX 1200 MG PO ×2 (09:05→20:05)
[2024-11-12] MEDS: ENTRESTO 24 MG/26 MG 0.5 TAB PO ×2 (09:05→20:05)
[2024-11-12] MEDS: PAXIL 30 MG PO ×2 (09:06→20:05)
[2024-11-12] MEDS: THERAGRAN 1 TABLET PO (09:07)
[2024-11-12] MEDS: TOPROL XL 100 MG PO (09:07)
[2024-11-12] MEDS: STERILE WATER FOR INJECTION 10 ML IV (09:07)
[2024-11-12] MEDS: XARELTO 20 MG PO (09:07)
[2024-11-12] MEDS: ROCEPHIN 1000 MG IV (09:08)
--- NOTE | 2024-11-12 09:14 | CON.PUL ---
Consultation
Consultation Request
Date/Time Consultation Requested: 11/12/24
Date/Time Consultation Performed: 11/12/24
Performing Provider: Kirti
Reason for Consultation: Flu/PNA
Medical History
-
History of Present Illness:
Patient is a 74 year old male with past medical history of paroxysmal atrial fibrillation, chronic heart failure, hypertension, prostate cancer, chronic bronchitis presenting to ER with cough, fatigue, chest congestion and shortness of breath.
Was diagnosed with Influenza A at [facility] and given Tamiflu for 5-days, which he completed. He had initially improved but notes worsening complaints following completion of treatment. On arrival, he is Flu A positive again, CXR not showing
appreciable findings on admission 11/09/24. Planning for d/c but developed worsening SOB, wheezing today 11/12/24. Repeat CXR showing new L sided infiltrate. proBNP now 7880.
Denies prior known history of lung disease, managed by the [facility]. He notes in hte past he had a diagnosis of chronic bronchitis. Prior to this no baseline respiratory complaints.
Nonsmoker, denies exposure history. Not on O2 at home.
Past Medical History
Past Medical History: Other (See list below)
Social History
Tobacco: Non-smoker
Alcohol: None
Drug: None
Family History
Family History: Reviewed & Not Pertinent
Allergies / Home Medications
Allergies
Allergy/AdvReac Type Severity Reaction Status Date / Time
No Known Allergies Allergy Verified 08/04/24 13:01
Home Medications
�Medication �Instructions �Recorded �Confirmed �Last Taken �Type
acetaminophen 500 mg capsule 1,000 mg PO Q4HPRN PRN mild pain 09/19/23 11/09/24 09/19/23 History
omega 0-pxp-cnh-fish oil 1,000 mg 1 cap PO DAILY High Cholesterol 09/19/23 11/09/24 09/19/23 History
(120 mg-180 mg) capsule (Fish Oil)
rivaroxaban 20 mg tablet (Xarelto) 20 mg PO DAILY Blood Clot 09/19/23 11/09/24 09/19/23 History
Prevention/Tx
sacubitril 24 mg-valsartan 26 mg 0.5 tab PO BID Heart Failure 09/19/23 11/09/24 09/19/23 History
tablet (Entresto)
therapeutic multivitamin 1 tab PO DAILY Supplement 09/19/23 11/09/24 09/19/23 History
albuterol sulfate 2.5 mg/3 mL 2.5 mg inhalation Q4HPRN PRN 11/09/24 11/09/24 Unknown History
(0.083 %) solution for nebulization shortness of breath or wheezing
metoprolol succinate 50 mg 50 mg PO BID 11/09/24 11/09/24 Unknown History
tablet,extended release 24 hr
paroxetine HCl 30 mg tablet 30 mg PO BID 11/09/24 11/09/24 Unknown History
trazodone 50 mg tablet 25 mg PO HSPRN PRN sleep 11/09/24 11/09/24 Unknown History
Review of Systems
-
History Source: Patient
All other systems: Negative unless noted
Vitals / Labs / Diagnostic Testing
Vital Signs
Temp Pulse Resp BP Pulse Ox
98.0 F 98 18 141/101 98
11/12/24 07:59 11/12/24 09:07 11/12/24 08:47 11/12/24 09:07 11/12/24 08:47
Lab Data
11/12/24 06:06
11/12/24 06:06
Microbiology
11/09/24 17:52 Blood/Venous Blood Culture - Preliminary
No Growth in 48 hours- Final report to follow
11/09/24 17:52 Blood/Venous Blood Culture - Preliminary
No Growth in 48 hours- Final report to follow
11/09/24 15:40 Nasal Swab Influenza Types A & B (ANNABELLE) - Final
Influenza A Positive, NAAT
Diagnostic Testing:
Physical Exam
-
HEENT: Normocephalic, Anicteric and Moist Mucous Membranes
Cardiovascular: S1/S2 and Regular Rhythm
Respiratory: Wheeze, Rales and Non-Labored Respirations
GI: Soft, Non Distended and Non Tender
Neurology: Awake, Alert, Oriented and No Motor Deficits
Skin: Warm, Dry and Good Color
General: Comfortable and Other (NAD)
Assessment
-
Patient is a 74 year old male with past medical history of paroxysmal atrial fibrillation, chronic heart failure, hypertension, prostate cancer, chronic bronchitis presenting to ER with cough, fatigue, chest congestion and shortness of breath.
Was diagnosed with Influenza A at [facility] and given Tamiflu for 5-days, which he completed. He had initially improved but notes worsening complaints following completion of treatment. On arrival, he is Flu A positive again, CXR not showing
appreciable findings on admission 11/09/24. Planning for d/c but developed worsening SOB, wheezing today 11/12/24. Repeat CXR showing new L sided infiltrate. proBNP now 7880.
Denies prior known history of lung disease, managed by the [facility]. He notes in the past he had a diagnosis of chronic bronchitis. Prior to this no baseline respiratory complaints.
Nonsmoker, denies exposure history. Not on O2 at home.
Subacute influenza infection, completed tamiflu as OP
Acute HFpEF, probNP 7880
Afib w/ RVR
Severe PH on ECHO
SOB/wheezing
Leukocytosis
Abnormal CXR, rule out superimposed bacterial infection
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
Chronic bronchitis, not maintained on OP inhalers
Dilatation of thoracic aorta
Mitral regurgitation
Hypertension
LV dysfunction
Atrial fibrillation on Xarelto
Anxiety/depression
Plan
No significant hypoxemia noted on arrival, O2 adam 92%, placed on low supplemental O2
There is no known history of O2 use at home
Can obtain home eval if needed
There is known prior history of lung disease including chronic bronchitis but he was not maintained on inhalers
Managed by [facility], no PFTs for review
Denies otherwise any h/o asthma, family history
Lifelong nonsmoker
Suspect patient has underlying PNA vs CHF on Subacute Flu illness
Had been positive at urgent care, treated with Tamiflu, remains positive on 11/09 admission
R/o infection, check PCT
Sputum culture, strep Ag
MRSA screen
Agree with abx for now, if PCT negative can likely stop
Consideration for speech eval as well
CXR/CT obtained indicating new L sided infiltrate vs edema
CT showing nodular opacities at base
proBNP 7880
Other imaging reviewed
ECHO results in past reviewed, preserved EF
Would be reasonable to start diuresis given Afib issue + severe PH on ECHO
Diuresis IV, start 20mg daily
Follow daily weights/UO
Cards following
Consider RHC if not improving
Will need outpatient pulmonary evaluation in our office including PFTs and 6MWT
Reviewed with patient
Risk factors assessed for underlying sleep disordered breathing also noted
Recommend outpatient sleep evaluation/PSG testing as indicated
Reviewed plan of care with son
PT/OT following, likely will need d/c planning to SNF
We will follow
Diagnostic Data
CXR 11/12/24- Right basilar opacification suspicious for pneumonia without significant change. Left chest opacification, at least in part groundglass, increased, could represent pneumonitis.
11/09/24- Cardiomegaly. Right basilar opacification which could represent pneumonia
CT CHEST 11/10/24- 1). There is no pulmonary embolism
2).There is interstitial and confluent alveolar airspace disease in the right lower lobe consistent with pneumonia
3). There is less prominent interstitial airway disease in the left lower lobe, lingula, posterior left upper lobe and lung apices which is more likely scarring than pneumonia of the latter is not excluded
ECHO 11/10/24- Normal biventricular size and systolic function without regional wall motion abnormality. Left ventricular ejection fraction is 50-55% by volumetric assessment - but difficult to assess due to rapid atrial fibrillation. Enlarged
right ventricular size with normal function. Mild to moderate mitral regurgitation. Mild aortic regurgitation. Moderate tricuspid regurgitation with severe pulmonary hypertension. Dilated aortic root and ascending aorta (SOV 4.3 cm, ascending 4.3
cm) Compared to the prior study on 03/25/2024, right ventricle is now mildly enlarged. Pulmonary hypertension is now seen. Remaining findings are similar.
PFT
Reports and relevant images were personally reviewed.
-----
Total time spent on this consultation __76_ minutes which includes review of history, physical exam, medications, llaboratory data, personal review of imaging, extensive review of outpatient records, and discussions with care team.
[2024-11-12] MEDS: VIBRAMYCIN 260 MG IV ×2 (10:11→21:27)
--- NOTE | 2024-11-12 13:41 | W.PN.CARDCBS ---
Addendum entered and electronically signed by Juju Plummer DO 11/12/24 18:39:
I saw and examined the patient.
The Deputy Fire Marshal's note was reviewed and I agree with the note.
Comment: Patient was seen and examined with cardiac PA. Family at bedside. Chart/telemetry reviewed. Patient denies palpitations at rest. Still complaining of shortness of breath and cough. No fevers. No chest pain.
GEN: No distress, awake, alert, oriented x3. on supp O2
HEENT:mmm
LUNGS: Bronchovesicular breath sounds decreased bilaterally. Coarse rhonchi. No wheezes
CV: Irreg, S1/S2, 10/05 syst LSB
ABD: soft, BS+, NT/ND
EXT: No edema
Echo 03/25/2024: Normal LV systolic function, moderate biatrial enlargement, MVP with mitral regurgitation at least moderate, moderate TR, mild to moderate AI, mild to moderate dilation of proximal aorta
ECHO 11/10/2024: EF 50 to 55%, enlarged RV size with normal function, mild to moderate MR, mild AR, moderate TR with severe pulmonary hypertension, dilated aortic root and ascending aorta
Plan:
-Admitted with hypoxic respiratory failure secondary to influenza and pneumonia
-Supportive care; Tamiflu
-Patient has a history of recurrent bronchitis without significant tobacco history and severe pulmonary hypertension on echocardiograms. Will need outpatient pulmonary evaluation
History of atrial fibrillation now permanent
-He has had prior unsuccessful cardioversions but has not had antiarrhythmic therapy or trial of ablation
-Rate control strategy for now in the setting of acute influenza/pneumonia
-Continue uninterrupted anticoagulation
-Add amiodarone 200 mg twice daily for better rate control
-Will reduce Toprol XL given increased wheezing and depression on higher doses
-Outpatient ischemic evaluation. No chest pain or pressure.
-Eventual outpatient EP evaluation for ablation will be arranged
History of recovered cardiomyopathy
-Trial of IV Lasix to keep him on the dipper and drier side in the setting of influenza
-Optimize goal-directed medical therapy as able
-Outpatient ischemic evaluation
-PT/OT following
-plan for SNF upon DC
-d/w patient and son in detail
Original Note:
Today's Communication / Plan
-
trial of IV lasix
wean supp O2
continue flu treatment
consider backing off of toprol and adding amio for rate control
OP EP evaluation for ablation candidacy
OP pulm follow up
Impression / Plan
-
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
Assessment:
Presentation with weakness, cough
Influenza A +
Leukocytosis
PNA
Concern for acute HFimpEF
Acute hypoxic respiratory insufficiency secondary to above
Persistent atrial fibrillation, now with RVR
History of prior CV x2, 04/2022 and 11/25/23
Chronic OAC with xarelto
History of recovered NICM
Severe pulm HTN
Chronic bronchitis
Anxiety/depression/PTSD
Former vaping/medical marijuana use for PTSD
History of ETOH use disorder
Echo 03/25/2024: Normal LV systolic function, moderate biatrial enlargement, MVP with mitral regurgitation at least moderate, moderate TR, mild to moderate AI, mild to moderate dilation of proximal aorta
ECHO 11/10/2024: EF 50 to 55%, enlarged RV size with normal function, mild to moderate MR, mild AR, moderate TR with severe pulmonary hypertension, dilated aortic root and ascending aorta
Plan:
-patient admitted 11/09 due to continued influenza symptoms even with initiation of tamiflu. initially seen by [facility] but would like to follow with [facility] moving forward so assumed care of patient today
-He reports he has history of cardioversion 04/2022 which lasted approximately 9 months, then cardioversion 11/25/23 which lasted briefly however patient then reverted to A-fib. He reports since that time he has been treated as more persistent to
permanent atrial fibrillation. He has not been on antiarrhythmic drug therapy in the past and has no history of ablation. He reports typically in A-fib he is asymptomatic when lying or sitting, however states more recently he has been feeling more
limited in terms of activity level and with any ambulation his heart rate 'shoots up' and he becomes symptomatic with this including weakness, dyspnea, and palpitations, particularly worse when he is sick.
-He states with last episode of bronchitis or pneumonia his Toprol dose was increased at that time, and then was increased again this admission. This morning he was noted to have worsening wheezing and he also has history of significant
anxiety/depression/PTSD, and earlier this admission admitted to some suicidal ideation due to him feeling so poorly, which is now improved. I offered psych evaluation and patient and son will think about this
-Concerned that high-dose beta-harshad not ideal for patient given above. Would consider initiation of amiodarone for additional rate control and would attempt to back off on Toprol dose to 50 mg twice daily
-Continue Xarelto 20 mg daily
-Do not feel as though there is utility in attempting cardioversion, as likely will not hold without antiarrhythmic drug load
-Would consider outpatient EP evaluation for ablation, arranged for 11/24/2024
-Chest x-ray from this morning completed due to worsening wheezing with evidence of pneumonia/pneumonitis, however proBNP also elevated at 7880. He has history of heart failure in the setting of prior nonischemic cardiomyopathy with subsequent
recovery, however is not on diuretic therapy as outpatient. Echocardiogram reviewed with patient and son at bedside, EF preserved, however with evidence of severe pulmonary hypertension. Agree with pulmonary trial of IV Lasix 20 mg daily to assess
for improvement
-Wean O2 as able
-Continue guideline directed medical therapy of prior nonischemic cardiomyopathy with Toprol, Entresto. Could consider addition of SGLT2 inhibitor, will have case management assess cost to patient
-should have pulm follow up with baseline PFTs and 6MWT once recovered. has possible prior agent orange exposure and chronic bronchitis.
-PT/OT following
-plan for SNF upon DC
-d/w patient and son in detail
Progress Note - Materials Mgmt Tech
Subjective
Date of Service: November 12, 2024
breathing now improved. no CP. reports weakness with standing
Objective
Labs:
11/12/24 06:06
11/12/24 06:06
Labs
Hgb 12.4 g/dL (13.0-18.0) L 11/12/24 06:06
Hct 37.7 % (39.0-52.0) L 11/12/24 06:06
Plt Count 388 10^3/uL (130-400) 11/12/24 06:06
Sodium 137 mmol/L (135-145) 11/12/24 06:06
Potassium 4.5 mmol/L (3.5-5.1) 11/12/24 06:06
BUN 21 mg/dl (9-20) H 11/12/24 06:06
Creatinine 0.6 mg/dL (0.7-1.3) L 11/12/24 06:06
Glucose 129 mg/dl (70-99) H 11/12/24 06:06
Troponins
11/09/24 11/10/24 11/10/24
22:33 04:30 04:30
Troponin I 0.013 Cancelled 0.018 D
11/10/24 11/10/24
10:34 16:09
Troponin I 0.013 D < 0.012
Vital Signs and I&O:
Vital Signs
Temp Pulse Resp BP Pulse Ox
98.0 F 98 18 141/101 98
11/12/24 07:59 11/12/24 09:07 11/12/24 08:47 11/12/24 09:07 11/12/24 08:47
Vital Signs
Temp Pulse Resp BP Pulse Ox
98.0 F 98 18 141/101 98
11/12/24 07:59 11/12/24 09:07 11/12/24 08:47 11/12/24 09:07 11/12/24 08:47
Intake & Output
02/11/11/11/24 11/12/24 11/13/24
07:59 07:59 07:59 07:59
Intake Total 740 / 740 900 / 900
Output Total 500 / 500 300 / 300
Balance -500 / -500 740 / 740 600 / 600
Physical Exam
Physical Exam
GEN: No distress, awake, alert, oriented x3. sitting in chair. on supp O2
HEENT: supple, anicteric, mmm, eomi
LUNGS: Rhonchi, few wheezes
CV: Irreg, S1/S2, 1/6 syst LSB
ABD: soft, BS+, NT/ND
EXT: No cyanosis, clubbing, edema
NEURO: Gross non-focal
SKIN: Warm, pink, dry. No rash
[2024-11-12] MEDS: LASIX 20 MG IV (15:16)
--- NOTE | 2024-11-12 15:38 | W.PN.HOSP.TC ---
Today's Communication/Plan
-
Still with significant SOB on exertion, with wheezing
CXR with possible pneumonitis -- speech consult ordered for any possible aspiration
Continue antibiotics
IV Lasix
Trend LFTs
RUQ Ultrasound
Assessment / Plan
Assessment / Plan
Physical Exam
General: No Apparent Distress, Comfortable and Conversant
HEENT: Normocephalic and Moist mucous membranes
Respiratory: Mild Wheezes
Cardiac: S1/S2 and Regular Rate
GI: Soft, Non Tender and Normal Bowel Sounds
Musculoskeletal: No Cyanosis and No Edema
Skin: Warm and Dry
Neuro: Awake, Alert, AO x 3 and Nonfocal/grossly intact
Psych: Calm and Intact Judgment/Insight
Assessment/Plan
#Concern for Sepsis Secondary to Pneumonia
#Suspected Right Lower Lobe Pneumonia
#History of RLL Pneumonia
#Influenza A
#Acute Hypoxic Respiratory Insufficiency Secondary to the Above
#History of COVID-pneumonia with post-COVID cough
-Although patient says he feels better, he appears somewhat SOB also with wheezing today -- concern for mucus/congestion/underlying asthma/slow recovery from pneumonia
-Labs with worsening leukocytosis and immature granulocytes -- suspected possible ongoing pneumonia; no new skin rash/cellulitis, no symptoms or signs of UTI, and no concern for a SUGAR LABORATORY ASSISTANT infection.
-Given wheezing, and suspected persistent pneumonia, repeated CXR and consult pulmonary, appreciate their evaluation and recommendations
-Repeat CXR suggest pneumonitis -- ordered speech evaluation
-Rocephin and Doxycycline
-Patient already finished a 5-day course of Tamiflu within the 1 week prior to arrival
-Sputum Cultures unable to be obtained as of yet
-Blood cultures with no growth to date
-Levalbuterol and Ipratropium QID (no albuterol given tachycardia)
-IV fluids given but careful given history of CHF
-Mucinex
-CT Chest PE study given persistent tachycardia, and given patient's hypoxia and SOB: no PE, RLL pneumonia confirmed
-Lasix IV 20 mg daily in setting of elevated proBNP
#Mild Hypokalemia - RESOLVED
-Replace
-Monitor CMP
-Magnesium normal
#Atrial fibrillation
- Continue Xarelto 20mg daily for OAC
- Monitor on telemetry given tachycardia, leukocytosis, and A-Fib on presentation
- Given rapid heart rates, concern for A-Fib with RVR, consulted cardiology
- Home Toprol XL increased now to 100 mg PO BID
#Elevated AST/ALT
-Possibly from infection/pneumonia/Influenza/recent Tamiflu treatment
-Check RUQ ultrasound
-Monitor CMP
#Heart failure with improved ejection fraction
-Continue GDMT with Toprol XL and entresto
-Lasix IV 20 mg daily
#Moderate aortic regurgitation
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
-Beta-harshad has been increased, keep blood pressure less than 130/80 mmHg
#Mitral valve prolapse
#Mild to moderate mitral regurgitation
#Cardiomegaly on Chest X-Ray
-Continue Entresto
-TTE 11/10/2024 LVEF 50 to 55%, enlarged RV with normal function, mild to moderate mitral regurgitation, mild aortic regurgitation, moderate tricuspid regurgitation with severe pulmonary hypertension, dilated aortic root and ascending aorta
#Severe pulmonary hypertension
-RV enlargement with normal function seen. Monitor over time.
#Essential hypertension
#Prostate cancer
#Anxiety/depression
-Continue paroxetine
Code Status: Full code
DVT Prophylaxis: Xarelto
Anticipated Discharge: > 48 hours
Subjective/Interval History
-
Date of Service: November 12, 2024
Patient was seen and examined. He reported feeling better, still shortness of breath with exertion but otherwise denied any other significant symptoms or complaints.
Objective Data
-
Labs:
Laboratory Results
11/12/24
06:06
WBC 16.4 H
Hgb 12.4 L
Hct 37.7 L
Plt Count 388
Sodium 137
Potassium 4.5
Chloride 101
Carbon Dioxide 27
BUN 21 H
Creatinine 0.6 L
Glucose 129 H
Calcium 8.6
Total Bilirubin 1.0
AST 124 H
ALT 168 H
Alkaline Phosphatase 135 H
Vital Signs:
Vital Signs
Temp Pulse Resp BP Pulse Ox
98.4 F 78 16 126/91 92
11/12/24 11:41 11/12/24 15:16 11/12/24 15:08 11/12/24 15:16 11/12/24 15:08
I&O
11/11/24 11/12/24 11/13/24
06:59 06:59 06:59
Intake Total 740 / 740 900 / 900
Output Total 300 / 300
Balance 740 / 740 600 / 600
--- NOTE | 2024-11-12 16:19 | PTOTSP ---
Dysphagia Evaluation
Patient reported chronic dysphagia (i.e., sensation of stasis and coughing with rapid intake and/or larger quantities of solids and liquids), with acute risk factors (i.e., admitted with subacute influenza A and concern for bacterial PNA), and
possible history concerning for aspiration complications (i.e., PNA 14 months ago, chronic bronchitis for which he follows with pulmonology). Patient failed Zara swallow test.
Recommend:
1. Regular, Thin Liquids
2. Strategies: small sips, slow rate
3. Medications as best tolerated
4. Consider video swallow study to objectively assess swallow function
[2024-11-12] MEDS: TYLENOL 500 MG PO (16:21)
[2024-11-12] MEDS: TOPROL XL 50 MG PO (20:05)
[2024-11-12] MEDS: PACERONE 200 MG PO (20:05)
[2024-11-12] MEDS: MELATONIN PO (21:27)
[2024-11-12] MEDS: DESYREL 25 MG PO (21:28)
[2024-11-12 22:02] LABS: Procalcitonin 0.13 ng/ml (0.0-0.25)
[2024-11-13] MEDS: XOPENEX 0.63 MG INHALANT SOLUTION INH ×4 (00:03→19:24)
--- NOTE | 2024-11-13 01:15 | W.PN.UPDATE ---
Update Note
Progress Note Update
-Reported by the nursing staff that patient is complaining of SOB, desatting to 80 %on 2 L of O2. Currently O2 up to 6 L with SPO2 low 90s. Patient denies chest pain.
On exam, Patient tachypneic. Crackles sound noted at the lung bases.
-One time order of IV Lasix 20mg given.
-abg and chest x-ray ordered
-Bladder scan with >400, patient not able on urinate on his own. Stephens cath was placed for urinary retention.
[2024-11-13] MEDS: LASIX 20 MG IV ×2 (01:20→09:09)
[2024-11-13 01:31] LABS: B.E. -0.8 mmol/L; HCO3 24.3 mmol/L (21-28); O2 Saturation % 95.7 % (94-98); PCO2 41 mmHg (35-48); PO2 71 mmHg (83-108); pH 7.38 (7.35-7.45)
[2024-11-13 01:33] LABS: O2 Therapy 6L NC
[2024-11-13 02:14] LABS: Hematocrit 37.3 % (39.0-52.0); Hemoglobin 12.5 g/dL (13.0-18.0); Mean Corp Hgb Conc. 33.5 g/dL (33.0-37.0); Mean Corpuscular Hgb 30.8 pg (27.0-31.0); Mean Corpuscular Volume 91.9 fL (80.0-94.0); Mean Platelet Volume 9.5 fL (7.4-10.4); Platelet Count 369 10^3/uL (130-400); Red Blood Cell Count 4.06 10^6/uL (4.70-6.10); Red Cell Dist. Width 12.7 % (11.5-14.5); White Blood Cell Count 26.4 10^3/uL (4.8-10.8)
[2024-11-13 02:24] LABS: Blood Urea Nitrogen 21 mg/dl (9-20); Calcium 8.6 mg/dl (8.4-10.2); Carbon Dioxide 25 mmol/L (22-30); Chloride 99 mmol/L (98-107); Estimated Creatinine Clearance > 125 ml/min; Glucose 155 mg/dl (70-99); Magnesium 1.7 mg/dl (1.6-2.3); Potassium 3.9 mmol/L (3.5-5.1); Sodium 135 mmol/L (135-145); eGFR > 60.00
--- NOTE | 2024-11-13 02:59 | PTCARENOTE ---
Pt.'s HR up to the 140's-180's (rapid A-fib) at at approx 2345. When checked on,. pt. found to be off his O2 (had been on 2L) stated it fell off when he attempted to use urinal (unsuccessful). RA pulse ox 80%, pt. noticeably distressed
(tachypneic, wheezing, rhonchi) . O2 replaced and titrated up to 6L with pulse ox slowly improving to mid 90's. 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 Post treatment pt. remained on 6L, - continuing to desat, however, with the littlest
movement (low 80's, 6L) and very SOB. Hospitalist BJ Sharma notified, came to bedside to assess. Orders for Lasix IV obtained and given, CXR completed, labs drawn (including ABG). Pt. also unable to void, bladder scanned for 427 ml, Stephens ordered
and inserted, initial output 600 ml clear yellow urine. Pt. currently states he feels much better, pulse ox 94% on 6L YENI. Zachary updated. Pt. resting quietly.
[2024-11-13 03:14] VITALS: BP 128/94
[2024-11-13 05:36] VITALS: BMI 24.5
[2024-11-13] MEDS: ATROVENT NEBULES 0.5 MG INH ×3 (07:06→19:24)
--- NOTE | 2024-11-13 07:17 | W.PN.HOSP.TC ---
Addendum entered and electronically signed by Adrián Pappas MD 11/13/24 13:19:
Strep pneumoniae Antigen positive
Original Note:
Today's Communication/Plan
-
Continue current regimen, await ID recommendations, ID recommendations appreciated
Assessment / Plan
Assessment / Plan
Physical Exam
General: No Apparent Distress, Comfortable and Conversant
HEENT: Normocephalic and Moist mucous membranes
Respiratory: Mild Wheezes. Crackles.
Cardiac: S1/S2 and Regular Rate
GI: Soft, Non Tender and Normal Bowel Sounds
Musculoskeletal: No Cyanosis and No Edema
Skin: Warm and Dry
Neuro: Awake, Alert, Oriented x 3 and Nonfocal/grossly intact
Psych: Calm and Intact Judgment/Insight
Assessment/Plan
#Concern for Sepsis Secondary to Pneumonia
#Suspected Right Lower Lobe Pneumonia
#History of RLL Pneumonia
#Influenza A
#Acute Hypoxic Respiratory Insufficiency Secondary to the Above
#History of COVID-pneumonia with post-COVID cough
-Patient hypoxic overnight -- concern for CHF exacerbation/mucus/congestion/underlying asthma/slow recovery from pneumonia
-Labs with worsening leukocytosis and immature granulocytes -- suspected possible ongoing pneumonia; no new skin rash/cellulitis, no symptoms or signs of UTI, and no concern for a AIRCREWMAN infection.
-Given wheezing, and suspected persistent pneumonia, repeated CXR with worsening left sided pneumonia, right-sided pneumonia still present
-Consulted pulmonary, appreciate their evaluation and recommendations
-CXR suggested pneumonitis -- ordered speech evaluation -- VSE done -- diet downgraded to IDDSI 6 per Speech Recommendations
-Rocephin and Doxycycline -- consulted ID for further evaluation, appreciate their recommendations
-Patient already finished a 5-day course of Tamiflu within the 1 week prior to arrival
-Sputum Cultures unable to be obtained as of yet
-Blood cultures with no growth to date
-Levalbuterol and Ipratropium QID (no albuterol given tachycardia)
-IV fluids given but careful given history of CHF
-Mucinex
-CT Chest PE study given persistent tachycardia, and given patient's hypoxia and SOB: no PE, RLL pneumonia confirmed
-Lasix IV 20 mg daily in setting of elevated proBNP
#Mild Hypokalemia - RESOLVED
-Replace
-Monitor CMP
-Magnesium normal
#Atrial fibrillation
- Continue Xarelto 20mg daily for OAC
- Monitor on telemetry given tachycardia, leukocytosis, and A-Fib on presentation
- Given rapid heart rates, concern for A-Fib with RVR, consulted cardiology
- Home Toprol XL 50 mg BID (was previously increased to 100 mg BID, but then decreased again due to wheezing)
- Amiodarone 200 mg twice daily for better rate control
#Elevated AST/ALT
-Possibly from infection/pneumonia/Influenza/recent Tamiflu treatment
-RUQ ultrasound: Cholelithiasis. No secondary findings to suggest acute cholecystitis. No evidence for biliary ductal dilation. Diffuse increased echogenicity of the liver, a nonspecific finding suggesting fatty infiltration and/or hepatocellular
disease. No evidence of a focal hepatic lesion. The spleen, pancreas, and abdominal aorta are unable to be adequately visualized, with shadowing from a large amount of overlying bowel gas (per radiologist)
-Monitor CMP
#Heart failure with improved ejection fraction
-Continue GDMT with Toprol XL and entresto
-Lasix IV 20 mg daily
#Moderate aortic regurgitation
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
-Continue beta harshad
#Mitral valve prolapse
#Mild to moderate mitral regurgitation
#Cardiomegaly on Chest X-Ray
-Continue Entresto
-TTE 11/10/2024 LVEF 50 to 55%, enlarged RV with normal function, mild to moderate mitral regurgitation, mild aortic regurgitation, moderate tricuspid regurgitation with severe pulmonary hypertension, dilated aortic root and ascending aorta
#Severe pulmonary hypertension
-RV enlargement with normal function seen. Monitor over time.
#Essential hypertension
#Prostate cancer
#Anxiety/depression
-Continue paroxetine
Code Status: Full code
Speech: VSE completed. Pt with significant pharyngeal residue and penetration to vocal folds at times with thin liquids. Suspect chronic dysphagia based on reports of years-long dysphagia. Rec downgrade to IDDSI Level 6
(soft/bite-sized) and thin liquids with strategies. Also rec to consider OP dysphagia tx.
DVT Prophylaxis: Xarelto
Anticipated Discharge: > 48 hours
Subjective/Interval History
-
Date of Service: November 13, 2024
Patient was seen and examined. He reported shortness of breath overnight, needed more oxygen.
Objective Data
-
Labs:
Laboratory Results
11/13/24 11/13/24 11/13/24
01:28 01:59 07:11
WBC 26.4 H Pending
Hgb 12.5 L Pending
Hct 37.3 L Pending
Plt Count 369 Pending
HCO3 24.3
Sodium 135 Pending
Potassium 3.9 Pending
Chloride 99 Pending
Carbon Dioxide 25 Pending
BUN 21 H Pending
Creatinine 0.6 L Pending
Glucose 155 H Pending
Calcium 8.6 Pending
Total Bilirubin Pending
AST Pending
ALT Pending
Alkaline Phosphatase Pending
Vital Signs:
Vital Signs
Temp Pulse Resp BP Pulse Ox
98.3 F 102 24 128/94 97
11/13/24 03:14 11/13/24 07:10 11/13/24 07:10 11/13/24 03:14 11/13/24 07:10
I&O
11/12/24 11/13/24 11/14/24
06:59 06:59 06:59
Intake Total 900 / 900 1080 / 1080
Output Total 300 / 300 1050 / 1050
Balance 600 / 600 30 / 30
[2024-11-13 08:00] VITALS: BP 146/103
[2024-11-13 08:56] LABS: Hematocrit 37.3 % (39.0-52.0); Hemoglobin 12.2 g/dL (13.0-18.0); Mean Corp Hgb Conc. 32.7 g/dL (33.0-37.0); Mean Corpuscular Hgb 30.7 pg (27.0-31.0); Mean Platelet Volume 9.9 fL (7.4-10.4); Platelet Count 365 10^3/uL (130-400); Red Blood Cell Count 3.97 10^6/uL (4.70-6.10); Red Cell Dist. Width 12.6 % (11.5-14.5); White Blood Cell Count 24.7 10^3/uL (4.8-10.8)
[2024-11-13] MEDS: THERAGRAN 1 TABLET PO (09:05)
[2024-11-13] MEDS: PAXIL 30 MG PO ×2 (09:05→21:10)
[2024-11-13] MEDS: PACERONE 200 MG PO ×3 (09:05→22:53)
[2024-11-13] MEDS: XARELTO 20 MG PO (09:05)
[2024-11-13] MEDS: MUCINEX 1200 MG PO ×2 (09:05→21:09)
[2024-11-13] MEDS: ENTRESTO 24 MG/26 MG 0.5 TAB PO ×2 (09:07→21:07)
[2024-11-13] MEDS: TOPROL XL 50 MG PO ×2 (09:07→21:10)
[2024-11-13] MEDS: VIBRAMYCIN 260 MG IV ×2 (09:09→21:10)
[2024-11-13] MEDS: STERILE WATER FOR INJECTION 10 ML IV (09:10)
[2024-11-13] MEDS: ROCEPHIN 1000 MG IV (09:10)
--- NOTE | 2024-11-13 09:17 | W.PN.PUL3 ---
Today's Communication / Plan
-
Worsening clinically, now on 6L
CXR with large L sided infiltrate, now strep Ag +
ID consult for possible change in abx regiment
UO better with IV lasix as well
Will add airway clearance measures
If not improving in the next 24 hours, can repeat CT chest again
Assessment
-
Patient is a 74 year old male with past medical history of paroxysmal atrial fibrillation, chronic heart failure, hypertension, prostate cancer, chronic bronchitis presenting to ER with cough, fatigue, chest congestion and shortness of breath.
Was diagnosed with Influenza A at [facility] and given Tamiflu for 5-days, which he completed. He had initially improved but notes worsening complaints following completion of treatment. On arrival, he is Flu A positive again, CXR not showing
appreciable findings on admission 11/09/24. Planning for d/c but developed worsening SOB, wheezing today 11/12/24. Repeat CXR showing new L sided infiltrate. proBNP now 7880.
Denies prior known history of lung disease, managed by the [facility]. He notes in the past he had a diagnosis of chronic bronchitis. Prior to this no baseline respiratory complaints.
Nonsmoker, denies exposure history. Not on O2 at home.
Subacute influenza infection, completed tamiflu as OP
Acute HFpEF, probNP 7880
Afib w/ RVR
Severe PH on ECHO
SOB/wheezing
Leukocytosis
Abnormal CXR, L sided infiltrate
Strep Ag positive, likely secondary strep PNA infection
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
Chronic bronchitis, not maintained on OP inhalers
Dilatation of thoracic aorta
Mitral regurgitation
Hypertension
LV dysfunction
Atrial fibrillation on Xarelto
Anxiety/depression
Plan
No significant hypoxemia noted on arrival, O2 adam 92%, placed on 2L
Worsening in the past 24 hours, now on 6L, increased from 2L
There is no known history of O2 use at home
Can obtain home eval eventually
There is known prior history of lung disease including chronic bronchitis but he was not maintained on inhalers
Managed by GA, no PFTs for review
Denies otherwise any h/o asthma, family history
Lifelong nonsmoker
Suspect patient has underlying PNA vs CHF on Subacute Flu illness
Had been positive at urgent care, treated with Tamiflu, remains positive on 11/09 admission
R/o infection, check PCT
Sputum culture pending, strep Ag +
MRSA screen
Agree with abx for now
ID consult for worsening PNA and abx regiment
CXR/CT obtained indicating new L sided infiltrate vs edema
CT showing nodular opacities at base
proBNP 7880
Other imaging reviewed
If worsening clinically by tomorrow, obtain CT chest again to re-evaluate
Continue mucinex
Add on vest/acapella
Has nebs TID
ECHO results in past reviewed, preserved EF
Would be reasonable to start diuresis given Afib issue + severe PH on ECHO
Diuresis IV, start 20mg daily
Follow daily weights/UO
Cards following
Consider RHC if not improving
Will need outpatient pulmonary evaluation in our office including PFTs and 6MWT
Reviewed with patient
Risk factors assessed for underlying sleep disordered breathing also noted
Recommend outpatient sleep evaluation/PSG testing as indicated
Reviewed plan of care with son
PT/OT following, likely will need d/c planning to SNF
Diagnostic Data
CXR 11/12/24- Right basilar opacification suspicious for pneumonia without significant change. Left chest opacification, at least in part groundglass, increased, could represent pneumonitis.
11/09/24- Cardiomegaly. Right basilar opacification which could represent pneumonia
CT CHEST 11/10/24- 1). There is no pulmonary embolism
2).There is interstitial and confluent alveolar airspace disease in the right lower lobe consistent with pneumonia
3). There is less prominent interstitial airway disease in the left lower lobe, lingula, posterior left upper lobe and lung apices which is more likely scarring than pneumonia of the latter is not excluded
ECHO 11/10/24- Normal biventricular size and systolic function without regional wall motion abnormality. Left ventricular ejection fraction is 50-55% by volumetric assessment - but difficult to assess due to rapid atrial fibrillation. Enlarged
right ventricular size with normal function. Mild to moderate mitral regurgitation. Mild aortic regurgitation. Moderate tricuspid regurgitation with severe pulmonary hypertension. Dilated aortic root and ascending aorta (SOV 4.3 cm, ascending 4.3
cm) Compared to the prior study on 03/25/2024, right ventricle is now mildly enlarged. Pulmonary hypertension is now seen. Remaining findings are similar.
PFT
Reports and relevant images were personally reviewed.
-----
Total time spent on this encounter _56_ minutes which includes review of history, physical exam, medications, llaboratory data, personal review of imaging, extensive review of outpatient records, and discussions with care team.
Subjective Data
-
Date of Service:
Date of Service: November 13, 2024
Chief Complaint: Pulmonary Follow Up
Subjective:
On more O2, remains on 6L
Feels SOB is worse
coughing but nonproductive
Objective Data
Data Reviewed
Vital Signs / I&O / Oxygen:
Vital Signs
Temp Pulse Resp BP Pulse Ox
98.3 F 139 16 146/103 96
11/13/24 08:00 11/13/24 09:09 11/13/24 08:00 11/13/24 09:09 11/13/24 08:00
Intake and Output
11/12/24 11/13/24 11/14/24
06:59 06:59 06:59
Intake Total 900 / 900 1080 / 1080
Output Total 300 / 300 1050 / 1050
Balance 600 / 600 30 / 30
SaO2 96
Nasal Cannula flow liters per 5
minute
Physical Exam
General: Comfortable and Other (NAD)
HEENT: Normocephalic, Anicteric and Moist Mucous Membranes
Cardiovascular: S1-S2 and Regular Rhythm
Respiratory: Crackles and Non-Labored Respirations
GI: Soft, Non Distended and Non Tender
Neurology: Awake, Alert, Oriented, AO x 3 and No Motor Deficits
Skin: Warm, Dry and Good Color
Labs/Micro/Reports
Lab Data
11/13/24 07:11
Laboratory Results
11/13/24
01:28
pH 7.38
pCO2 41
pO2 71 L
HCO3 24.3
O2 Delivery Level 6l nc
Microbiology
11/13/24 01:59 Urine Streptococcus pneumoniae Antigen (M - Final
Positive for Strep pneumo Ag
11/09/24 17:52 Blood/Venous Blood Culture - Preliminary
No Growth in 72 hours- Final report to follow
11/09/24 17:52 Blood/Venous Blood Culture - Preliminary
No Growth in 72 hours- Final report to follow
[2024-11-13 09:32] LABS: ALT (SGPT) 138 U/L (0-50); AST (SGOT) 81 U/L (17-59); Albumin 3.1 g/dl (3.5-5.0); Alkaline Phosphatase 130 U/L (38-126); Blood Urea Nitrogen 18 mg/dl (9-20); Calcium 8.5 mg/dl (8.4-10.2); Carbon Dioxide 26 mmol/L (22-30); Chloride 97 mmol/L (98-107); Estimated Creatinine Clearance > 125 ml/min; Glucose 124 mg/dl (70-99); Magnesium 1.7 mg/dl (1.6-2.3); Sodium 134 mmol/L (135-145); Total Bilirubin 1.1 mg/dl (0.2-1.3); Total Protein 5.6 g/dl (6.3-8.2); eGFR > 60.00
[2024-11-13 09:59] LABS: TSH Reflex To Free T4 1.81 uIU/ml (0.47-4.68)
[2024-11-13 10:51] LABS: % Basophils 0.2 % (0-2); % Immature Granulocytes 1.3 % (0-0.5); % Lymphocytes 4.5 % (20.5-51.1); % Monocytes 6.8 % (1.7-9.3); % Neutrophils 87.2 % (42.2-75.2); Absolute Immature Granulocytes 0.3 10^3/uL (0-0.05); Absolute Lymphocytes 1.1 10^3/uL (1.2-3.4); Absolute Monocytes 1.7 10^3/uL (0.1-0.6); Absolute Neutrophils 21.5 10^3/uL (1.4-6.5); Nucleated Red Blood Cells % 0 % (-)
--- NOTE | 2024-11-13 11:25 | CM ---
Spoke with patient regarding options of SNF
PT rec SNF
would like referrals to [facility]
Patient for video swallow
PLAN: SNF, pending bed availability
--- NOTE | 2024-11-13 11:30 | PTOTSP ---
Speech Language Pathology
VIDEOFLUOROSCOPIC SWALLOWING EXAMINATION (VSE) completed. Mild-mod pharyngeal dysphagia noted. With thin liquids via cup, penetration to the level of the vocal folds (PAS 5) noted both during the swallow and following the swallow. Chin tuck
worsened swallow function with aspiration (PAS 7) with brief throat clear response, which was ineffective at clearing aspirated material. Consecutive straw sips of mildly thick liquids reuslted in supraglottic penetration (PAS 3) during the
swallow. Significant pharyngeal residue noted with all consistencies trialed, no less than moderate amount, even with thin liquids. Most notable in pyriform sinuses across consistencies with variable vallecular residue noted. Effortful swallow,
liquid wash, and neck hyperextension with dry swallow ineffective at reducing amount of residue.
Suspect chronic dysphagia given pt report of difficulty swallowing for years.
Recommend:
(1) IDDSI Level 6 (soft/bite-sized) and thin liquids
(2) Aspiration precautions: sit upright, slow rate, single sips, intermittent cough/reswallow
(3) Meds as tolerated
(4) Consider OP dysphagia tx
(5) HEAD PACKAGER to continue to follow
--- NOTE | 2024-11-13 11:52 | CON.ID ---
Consultation
-
Date/Time Consultation Requested: 11/13/2024 0930
Date/Time Consultation Performed: 11/13/2024 1145
Requesting Provider: Dr. Pappas
Performing Provider: Dr. Oh
Reason for Consultation: Pneumonia; leukocytosis
Chief Complaint / Past History
History of Present Illness
Robi Jaramillo is a 74-year-old man being evaluated at the request of Dr. Pappas in regards to leukocytosis and worsening pneumonia. History is obtained from chart review, along with patient interview.
The patient presented to [facility] on 11/09/2024 secondary to profound weakness. The patient was diagnosed with influenza on approximately 11/02 at a local urgent center and was prescribed a 5-day course of Tamiflu. He notes that over the
following week he has not been improved. Despite the antiviral medication, the patient reports his cough has persisted, and he noted some 'rattling in the chest' prior to admission. Ultimately he came to the emergency room on 11/09 secondary to
ongoing weakness, cough, development of wheeze. He denies any significant sputum, though. He reports only rare fevers prior to admission
At the time of admission he was not found to be febrile, but did have a leukocytosis. White count briefly improved, only to markedly increased over the past several days. Additionally, pulmonary imaging appears worse today, and Infectious Diseases
is asked to comment on further antimicrobial management.
Last evening, his respiratory status declined, and he required increased O2. CXR today appears worse, although at the present time the patient reports feeling better after receiving Lasix.
No recent travel. His son, who is at the bedside and assisted in the history, reports that the patient has a longstanding history of secondhand tobacco exposure.
Past History
Additional Past Medical History:
A-fib
Hx Prostate CA
HTN
Additional Past Surgical History:
Hip surgery
Prostate surgery
Allergy History:
No Known Allergies Allergy (Verified 08/04/24 13:01)
Medications Reviewed: Yes
Current Antibiotics:
Rocephin 1 g IV every 24 hours (d#4)
Doxycycline 100 mg IV every 12 hours (d#5)
Social History
Tobacco: Former Smoker
Alcohol: None
Drug: Marijuana
Review of Systems
Vital Signs
Temp Pulse Resp BP Pulse Ox
98.3 F 139 16 146/103 91
11/13/24 08:00 11/13/24 09:09 11/13/24 08:00 11/13/24 09:09 11/13/24 08:05
Physical Exam
Physical Exam
Constitutional: No Acute Distress, Comfortable and Non-toxic
Head: Normocephalic
Eyes: Pupils Equal, Pupils Round, No Conjunctival Hemorrhage and Sclera Anicteric
Oral: No Thrush and No Ulcers
Cardiovascular: Regular Rate and S1/S2; Negative S3/S4
Pulmonary: Wheezes, Coarse and Other (Mildly labored. Currently on 6 L O2.); Negative Rales
Gastrointestinal: Soft, Non Tender, Non Distended, Normal Bowel Sounds, No Rebound and No Guarding
Skin: Warm and Dry; Negative Rash or Jaundice
Neurological: Awake and Alert
Psychological: Calm
Lab / Diagnostic Study Results
11/13/24 07:11
11/13/24 07:11
Abs Immat Gran (auto) 0.3 10^3/uL (0-0.05) H 11/13/24 07:11
Absolute Neuts (auto) 21.5 10^3/uL (1.4-6.5) H 11/13/24 07:11
Absolute Lymphs (auto) 1.1 10^3/uL (1.2-3.4) L 11/13/24 07:11
Absolute Monos (auto) 1.7 10^3/uL (0.1-0.6) H 11/13/24 07:11
Absolute Basos (auto) 0.0 10^3/uL (0-0.2) 11/13/24 07:11
Immature Gran % 1.3 % (0-0.5) H 11/13/24 07:11
Neutrophils % 87.2 % (42.2-75.2) H 11/13/24 07:11
Lymphocytes % 4.5 % (20.5-51.1) L 11/13/24 07:11
Monocytes % 6.8 % (1.7-9.3) 11/13/24 07:11
Eosinophils % 0.0 % (0-6) 11/13/24 07:11
Basophils % 0.2 % (0-2) 11/13/24 07:11
Lactic Acid Cancelled 11/09/24 21:30
Procalcitonin 0.13 ng/ml (0.0-0.25) 11/12/24 21:21
Microbiology Results
Micro:
11/13/24 01:59 Streptococcus pneumoniae Antigen (M - Final
Urine Positive for Strep pneumo Ag
11/09/24 17:52 Blood Culture - Preliminary
Blood/Venous No Growth in 72 hours- Final report to follow
11/09/24 17:52 Blood Culture - Preliminary
Blood/Venous No Growth in 72 hours- Final report to follow
11/12/24 15:27 MRSA Screen - Pending
Nose
11/09/24 15:40 Influenza Types A & B ([facility]) - Final
Nasal Swab Influenza A Positive, NAAT
Imaging:
11/13/2024 Abdominal ultrasound: Cholelithiasis, but no findings to suggest acute cholecystitis. No evidence for biliary ductal dilatation. The spleen, pancreas and abdominal aorta are unable to be adequately visualized secondary to overlying bowel
gas. Please see full dictation for additional detail.
11/13/2024 CXR (portable): Increased left lung infiltrate. Parenchymal opacity also noted in the right lower lung. Please see full dictation for additional detail. Film personally viewed.
11/12/2024 CXR (2 view): Right basilar opacification without significant change from prior.
Assessment / Plan
Influenza A infection
Suspected post influenza pneumonia (pneumococcus urinary antigen positive)
Leukocytosis
A-fib
Hx Prostate CA
HTN
Recommendations:
At present, the patient appears somewhat more clinically stable following the administration of Lasix suggesting that at least a component of CHF.
Continue with current antibiotic therapy (ceftriaxone; doxycycline). Transition doxycycline to the oral route as the bioavailability is essentially the same as IV.
Monitor white count and temperature curve.
Follow CXR, or if clinical decline can obtain CT scan.
Repeat sputum culture has been ordered.
Continue to follow clinically.
Further recommendations as additional data is returned.
Care Review
Plan reviewed with: Physician (Hospitalist; Pulmonary)
[2024-11-13 13:01] VITALS: BP 138/98
--- NOTE | 2024-11-13 15:15 | W.PN.CARDCBS ---
Addendum entered and electronically signed by Giovani Willis MD 11/13/24 19:30:
Patient feels much better, was able to ambulate a short distance. Son at bedside
current medications:Xopenex, ceftriaxone, doxycycline, Mucinex, paroxetine, rivaroxaban 20 mg a day, Entresto 0.5 twice daily () Atrovent, furosemide 20 mg IV daily, metoprolol ER 50 twice daily, amiodarone 200 3 times daily
124/93, pulse 102, respiratory rate 16, afebrile, weight is 98.7 kg, up 1 kg, chronically ill-appearing, lungs relatively clear, irregular rate and rhythm slightly tachycardic, soft systolic murmur, JVD okay, not much edema
Abdominal ultrasound: Gallstones without evidence of inflammation, normal biliary ducts, possible fatty infiltration,
White count 24.7, hemoglobin 12.2 platelets 365, AB.38, pCO2 41, pO2 71, BUN and creatinine 18 and 0.6, potassium 4.0
ECHO 11/10/2024: EF 50 to 55%, enlarged RV size with normal function, mild to moderate MR, mild AR, moderate TR with severe pulmonary hypertension, dilated aortic root and ascending aorta
Telemetry: Ventricular rate is borderline controlled
Impression:
Influenza A
Possible superimposed bacterial pneumonia
Acute heart failure with improved EF
Acute hypoxemic respiratory insufficiency related to the above
Persistent atrial fibrillation, now on amiodarone
Pulmonary hypertension, pulmonary artery systolic pressure 65
PTSD/anxiety/depression
History of EtOH use
Mild to moderate mitral regurgitation
Plan:
Overall he is improving. Currently on IV furosemide 20 mg a day. Will likely transition to oral diuretic in a.m. On admission he was not on furosemide.
We could consider an SGLT2 antagonist given HFpEF, will ask case management to hernandes.
Could also consider spironolactone for HFpEF.
Heart rate is borderline controlled, amiodarone just increased, he is on metoprolol ER 50 mg twice daily, will continue for now. QTc is acceptable
Pulmonary hypertension likely related to intrinsic lung disease and HFpEF. Consider outpatient echo when he has recovered from pneumonia/influenza
We have arranged for outpatient follow-up with electrophysiology. From our standpoint okay to begin discharge planning.
Original Note:
Today's Communication / Plan
-
continue IV lasix, consider additional dose of lasix this afternoon
increase amiodarone. follow HRs, QTc
wean O2 as able
continue treatment of PNA/flu
Impression / Plan
-
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
Assessment:
Presentation with weakness, cough
Influenza A +
Leukocytosis
PNA
Acute HFimpEF
Acute hypoxic respiratory insufficiency secondary to above
Persistent atrial fibrillation, now with RVR
History of prior CV x2, 04/2022 and 11/25/23
Chronic OAC with xarelto
History of recovered NICM
Severe pulm HTN
Chronic bronchitis
Anxiety/depression/PTSD
Former vaping/medical marijuana use for PTSD
History of ETOH use disorder
Echo 03/25/2024: Normal LV systolic function, moderate biatrial enlargement, MVP with mitral regurgitation at least moderate, moderate TR, mild to moderate AI, mild to moderate dilation of proximal aorta
ECHO 11/10/2024: EF 50 to 55%, enlarged RV size with normal function, mild to moderate MR, mild AR, moderate TR with severe pulmonary hypertension, dilated aortic root and ascending aorta
Plan:
-Overnight was noted to have taken oxygen off to go into the bathroom. With this, O2 sats noted to be in the 80s and heart rates up into the 160s, which improved with placing oxygen back on - presently with higher O2 requirements than previous, on
6L NC. Also had urinary retention, now with Jarvis placement
-receiving IV lasix 20mg daily and reports good urine output through jarvis with this, consider additional dose of IV lasix this afternoon. not on diuretic therapy as OP. significant improvement in wheezing today compared to yesterday
-Reports feeling much better at present
-Continue treatment of influenza and pneumonia per primary service, pulm, and infectious disease. repeat sputum culture pending.
-Also with concern for aspiration contributing. Speech therapy following.
-Wean O2 as able
-He states with last episode of bronchitis or pneumonia his Toprol dose was increased, and then was increased again this admission to 100mg BID, however with increased toprol dose with worsening wheezing and with worsening depression symptoms so
dose reduced back to 50mg BID with some improvement.
-amiodarone 200mg BID added 11/12. HR control remains suboptimal, will increase amiodarone dose. follow QTc by EKG. occasional PVCs also noted
-Continue Xarelto 20 mg daily
-Would consider outpatient EP evaluation and can discuss ablation in more detail at that time, tentatively arranged for 11/24/2024
-echo with results as above, EF 50-55%, severe pulm HTN. Continue guideline directed medical therapy of recovered nonischemic cardiomyopathy with Toprol, Entresto. Could consider addition of SGLT2 inhibitor, will have case management assess cost to
patient
-should have pulm follow up with baseline PFTs and 6MWT once recovered. has possible prior agent orange exposure and chronic bronchitis.
-PT/OT following
-plan for SNF upon DC
-d/w patient and son. d/w nursing
Afib history:
-He reports he has history of cardioversion 04/2022 which lasted approximately 9 months, then cardioversion 11/25/23 which lasted briefly however patient then reverted to A-fib. He reports since that time he has been treated as more persistent to
permanent atrial fibrillation. He has not been on antiarrhythmic drug therapy in the past and has no history of ablation. He reports typically in A-fib he is asymptomatic when lying or sitting, however states more recently he has been feeling more
limited in terms of activity level and with any ambulation his heart rate 'shoots up' and he becomes symptomatic with this including weakness, dyspnea, and palpitations, particularly worse when he is sick.
Progress Note - Customs Agent
Subjective
Date of Service: November 13, 2024
reports feeling the best he has felt since admission
Objective
Labs:
11/13/24 07:11
11/13/24 07:11
Labs
Hgb 12.2 g/dL (13.0-18.0) L 11/13/24 07:11
Hct 37.3 % (39.0-52.0) L 11/13/24 07:11
Plt Count 365 10^3/uL (130-400) 11/13/24 07:11
Sodium 134 mmol/L (135-145) L 11/13/24 07:11
Potassium 4.0 mmol/L (3.5-5.1) 11/13/24 07:11
BUN 18 mg/dl (9-20) 11/13/24 07:11
Creatinine 0.6 mg/dL (0.7-1.3) L 11/13/24 07:11
Glucose 124 mg/dl (70-99) H 11/13/24 07:11
Troponins
11/10/24
16:09
Troponin I < 0.012
Vital Signs and I&O:
Vital Signs
Temp Pulse Resp BP Pulse Ox
97.6 F 85 20 138/98 94
11/13/24 13:01 11/13/24 14:02 11/13/24 14:02 11/13/24 13:01 11/13/24 14:02
Vital Signs
Temp Pulse Resp BP Pulse Ox
97.6 F 85 20 138/98 94
11/13/24 13:01 11/13/24 14:02 11/13/24 14:02 11/13/24 13:01 11/13/24 14:02
Intake & Output
11/11/24 11/12/24 11/13/24 11/14/24
07:59 07:59 07:59 07:59
Intake Total 740 / 740 900 / 900 1080 / 1080
Output Total 300 / 300 1050 / 1050
Balance 740 / 740 600 / 600 30 / 30
Physical Exam
Physical Exam
GEN: No distress, awake, alert, oriented x3. on supp O2
HEENT: supple, anicteric, mmm, eomi
LUNGS: Less wheezing, scattered rhonchi at bases
CV: Irreg, S1/S2, 1/6 syst LSB
ABD: soft, BS+, NT/ND
EXT: No cyanosis, clubbing, edema
NEURO: Gross non-focal
SKIN: Warm, pink, dry. No rash
[2024-11-13 15:57] VITALS: BP 134/98; PULSE 104; O2SAT 97
[2024-11-13 19:15] VITALS: BP 134/90
[2024-11-13] MEDS: MELATONIN 3 MG PO (22:53)
[2024-11-13] MEDS: BenGay-Like 1 APPLIC TOPICAL (22:59)
[2024-11-13 23:22] VITALS: BP 138/92
[2024-11-14 03:00] VITALS: BP 108/79
[2024-11-14 06:00] VITALS: BMI 23.9
[2024-11-14 07:00] VITALS: BP 134/87
[2024-11-14] MEDS: ATROVENT NEBULES 0.5 MG INH ×3 (07:22→20:18)
[2024-11-14] MEDS: XOPENEX 0.63 MG INHALANT SOLUTION INH ×3 (07:22→20:18)
[2024-11-14] MEDS: MUCINEX 1200 MG PO ×2 (08:29→20:52)
[2024-11-14] MEDS: BenGay-Like 1 APPLIC TOPICAL ×4 (08:29→21:13)
[2024-11-14] MEDS: ROCEPHIN 1000 MG IV (08:30)
[2024-11-14] MEDS: STERILE WATER FOR INJECTION 10 ML IV (08:30)
[2024-11-14] MEDS: ENTRESTO 24 MG/26 MG 0.5 TAB PO ×2 (08:30→20:52)
[2024-11-14] MEDS: LASIX 20 MG IV (08:31)
[2024-11-14] MEDS: PACERONE 200 MG PO ×3 (08:32→21:16)
[2024-11-14] MEDS: XARELTO 20 MG PO (08:32)
[2024-11-14] MEDS: TOPROL XL 50 MG PO ×2 (08:33→20:53)
[2024-11-14] MEDS: THERAGRAN 1 TABLET PO (08:33)
[2024-11-14] MEDS: VIBRAMYCIN 260 MG IV (08:33)
[2024-11-14] MEDS: PAXIL 30 MG PO ×2 (08:33→20:54)
[2024-11-14 09:50] LABS: % Basophils 0.1 % (0-2); % Immature Granulocytes 1.3 % (0-0.5); % Lymphocytes 4.8 % (20.5-51.1); % Monocytes 7.6 % (1.7-9.3); % Neutrophils 86.2 % (42.2-75.2); Absolute Immature Granulocytes 0.3 10^3/uL (0-0.05); Absolute Lymphocytes 1.1 10^3/uL (1.2-3.4); Absolute Monocytes 1.8 10^3/uL (0.1-0.6); Absolute Neutrophils 19.7 10^3/uL (1.4-6.5); Hematocrit 36.3 % (39.0-52.0); Mean Corp Hgb Conc. 33.1 g/dL (33.0-37.0); Mean Corpuscular Hgb 30.9 pg (27.0-31.0); Mean Corpuscular Volume 93.6 fL (80.0-94.0); Mean Platelet Volume 10.1 fL (7.4-10.4); Nucleated Red Blood Cells % 0 % (-); Platelet Count 397 10^3/uL (130-400); Red Blood Cell Count 3.88 10^6/uL (4.70-6.10); Red Cell Dist. Width 12.7 % (11.5-14.5); White Blood Cell Count 22.9 10^3/uL (4.8-10.8)
[2024-11-14 10:24] LABS: ALT (SGPT) 123 U/L (0-50); AST (SGOT) 80 U/L (17-59); Albumin 2.9 g/dl (3.5-5.0); Alkaline Phosphatase 117 U/L (38-126); Blood Urea Nitrogen 17 mg/dl (9-20); Calcium 8.6 mg/dl (8.4-10.2); Carbon Dioxide 28 mmol/L (22-30); Chloride 97 mmol/L (98-107); Estimated Creatinine Clearance > 125 ml/min; Glucose 109 mg/dl (70-99); Potassium 3.8 mmol/L (3.5-5.1); Sodium 133 mmol/L (135-145); Total Bilirubin 1.3 mg/dl (0.2-1.3); Total Protein 5.4 g/dl (6.3-8.2); eGFR > 60.00
--- NOTE | 2024-11-14 11:06 | W.PN.ID1 ---
Date of Service
Date of Service: November 14, 2024
Today's Communication
Continue antibiotics.
Assessment / Plan
Influenza A infection
- s/p 5 day course of Tamiflu
Suspected post influenza pneumonia (pneumococcus urinary antigen positive)
Leukocytosis
A-fib
Hx Prostate CA
HTN
Recommendations:
Patient feeling better today following Lasix administration yesterday.
Follow CXR, or if clinical decline can obtain CT scan.
Repeat sputum culture has been obtained and pending.
Continue ceftriaxone/doxycycline for today.
Continue to follow clinically.
Further recommendations as additional data is returned.
����������������������������������������������������������
Chief Complaint
-: Pneumonia
Subjective / Review of Systems
Patient seen and examined. Reports feeling improved today. Breathing is more comfortable. Some cough and sputum production. A sample has been sent.
Review of Systems: No Fever
Vital Signs / Physical Exam
Vital Signs
Vital Signs
Temp Pulse Resp BP Pulse Ox
98.5 F 88 22 134/87 92
11/14/24 07:00 11/14/24 08:33 11/14/24 07:26 11/14/24 08:33 11/14/24 09:41
Physical Exam
Constitutional: No Acute Distress, Comfortable and Non-toxic
Eyes: Sclera Anicteric
Cardiovascular: S1/S2; Negative S3/S4
Pulmonary: Coarse and Non Labored
Gastrointestinal: Soft, Non Tender and Non Distended
Neurological: Awake and Alert
Psychological: Calm
Objective Data
Lab Data
Lab Results
11/14/24 08:04
11/14/24 08:04
Estimated Creat Clear > 125 ml/min 11/14/24 08:04
Lactic Acid Cancelled 11/09/24 21:30
Total Bilirubin 1.3 mg/dl (0.2-1.3) 11/14/24 08:04
AST 80 U/L (17-59) H 11/14/24 08:04
ALT 123 U/L (0-50) H 11/14/24 08:04
Alkaline Phosphatase 117 U/L (38-126) 11/14/24 08:04
Most recent labs reviewed.
Micro Results:
11/12/24 15:27 MRSA Screen - Final
Nose No Methicillin Resistant Staphylococcus aureus isolated.
11/09/24 17:52 Blood Culture - Preliminary
Blood/Venous No Growth in 4 days- Final report to follow
11/09/24 17:52 Blood Culture - Preliminary
Blood/Venous No Growth in 4 days- Final report to follow
11/13/24 13:29 Respiratory Culture - Pending
Sputum Gram Stain - Preliminary
11/13/24 01:59 Streptococcus pneumoniae Antigen (M - Final
Urine Positive for Strep pneumo Ag
11/09/24 15:40 Influenza Types A & B ([facility]) - Final
Nasal Swab Influenza A Positive, NAAT
Imaging:
11/13/2024 Abdominal ultrasound: Cholelithiasis, but no findings to suggest acute cholecystitis. No evidence for biliary ductal dilatation. The spleen, pancreas and abdominal aorta are unable to be adequately visualized secondary to overlying bowel
gas. Please see full dictation for additional detail.
11/13/2024 CXR (portable): Increased left lung infiltrate. Parenchymal opacity also noted in the right lower lung. Please see full dictation for additional detail. Film personally viewed.
11/12/2024 CXR (2 view): Right basilar opacification without significant change from prior.
[2024-11-14 11:28] VITALS: BP 142/93
--- NOTE | 2024-11-14 12:02 | W.PN.CARDCBS ---
Today's Communication / Plan
-
Switch furosemide from 20 mg IV to 20 mg p.o.
Add spironolactone 12.5 mg a day
Add Farxiga 10 mg daily pending pricing from case management
Continue metoprolol and amiodarone
Discharge planning okay from cardiac standpoint
Impression / Plan
-
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
Assessment:
Presentation with weakness, cough
Influenza A +
Leukocytosis
PNA
Acute HFimpEF
Acute hypoxic respiratory insufficiency secondary to above
Persistent atrial fibrillation, now with RVR
History of prior CV x2, 04/2022 and 11/25/23
Chronic OAC with xarelto
History of recovered NICM
Severe pulm HTN
Chronic bronchitis
Anxiety/depression/PTSD
Former vaping/medical marijuana use for PTSD
History of ETOH use disorder
Echo 03/25/2024: Normal LV systolic function, moderate biatrial enlargement, MVP with mitral regurgitation at least moderate, moderate TR, mild to moderate AI, mild to moderate dilation of proximal aorta
ECHO 11/10/2024: EF 50 to 55%, enlarged RV size with normal function, mild to moderate MR, mild AR, moderate TR with severe pulmonary hypertension, dilated aortic root and ascending aorta
Plan:
From the standpoint of HF with improved EF, he appears well. Will transition to furosemide 20 mg by mouth daily. Will add Farxiga and spironolactone.
Could consider up titration of Entresto. Rec: for Entresto in heart failure with improved EF is Class IIb
His ventricular response to atrial fibrillation is still slightly rapid but improved and overall acceptable.
From standpoint of influenza A with suspected superimposed pneumonia he is improving.
We have arranged for outpatient electrophysiology consultation. Continue amiodarone and metoprolol at current doses. Continue anticoagulation.
Discussed with patient and .
Afib history:
-He reports he has history of cardioversion 04/2022 which lasted approximately 9 months, then cardioversion 11/25/23 which lasted briefly however patient then reverted to A-fib. He reports since that time he has been treated as more persistent to
permanent atrial fibrillation. He has not been on antiarrhythmic drug therapy in the past and has no history of ablation. He reports typically in A-fib he is asymptomatic when lying or sitting, however states more recently he has been feeling more
limited in terms of activity level and with any ambulation his heart rate 'shoots up' and he becomes symptomatic with this including weakness, dyspnea, and palpitations, particularly worse when he is sick.
Progress Note - Scrap Burner
Subjective
Date of Service: November 14, 2024:
Current meds: Ceftriaxone, Mucinex, paroxetine, Xarelto 20 mg a day, Entresto 1/2 tablet daily, Xopenex, Atrovent, furosemide 20 IV daily, metoprolol ER 50 twice daily, amiodarone 200 mg 3 times daily, doxycycline
142/93, pulse 89, respiratory rate 18, afebrile, sats 93%, chronically ill but appears better, occasional scattered rhonchi lungs relatively clear JVD okay, no obvious murmur, not much edema abdomen benign
Intake and output -0.9 L, weight is 96.1 kg, if accurate down 2.6 kg
EKG sinus rhythm, left axis, nonspecific ST and T changes, rate 99 bpm, QTc is borderline
White count 22.9, hemoglobin 12, left shift, sodium 133, potassium 3.8, BUN and creatinine 17 and 0.5
Objective
Labs:
11/14/24 08:04
11/14/24 08:04
Labs
Hgb 12.0 g/dL (13.0-18.0) L 11/14/24 08:04
Hct 36.3 % (39.0-52.0) L 11/14/24 08:04
Plt Count 397 10^3/uL (130-400) 11/14/24 08:04
Sodium 133 mmol/L (135-145) L 11/14/24 08:04
Potassium 3.8 mmol/L (3.5-5.1) 11/14/24 08:04
BUN 17 mg/dl (9-20) 11/14/24 08:04
Creatinine 0.5 mg/dL (0.7-1.3) L 11/14/24 08:04
Glucose 109 mg/dl (70-99) H 11/14/24 08:04
Vital Signs and I&O:
Vital Signs
Temp Pulse Resp BP Pulse Ox
36.3 C 89 18 142/93 93
11/14/24 11:28 11/14/24 11:28 11/14/24 11:28 11/14/24 11:28 11/14/24 11:28
Vital Signs
Temp Pulse Resp BP Pulse Ox
36.3 C 89 18 142/93 93
11/14/24 11:28 11/14/24 11:28 11/14/24 11:28 11/14/24 11:28 11/14/24 11:28
Intake & Output
11/12/24 11/13/24 11/14/24 11/15/24
07:59 07:59 07:59 07:59
Intake Total 900 / 900 1080 / 1080 1210 / 1210
Output Total 300 / 300 1050 / 1050 2125 / 2125
Balance 600 / 600 30 / 30 -915 / -915
Physical Exam
Physical Exam
See above
--- NOTE | 2024-11-14 12:26 | PTCARENOTE ---
As per pt and pt's son. Pt had a med bm 11/13/24. +bs, no s/s of distress noted.
--- NOTE | 2024-11-14 12:30 | W.PN.PUL.V3 ---
Today's Communication / Plan
-
Wean oxygen
Mucolytic's
Mucus clearing devices
Diuresis
Atrial fibrillation rate control
Assessment
-
Patient is a 74 year old male with past medical history of paroxysmal atrial fibrillation, chronic heart failure, hypertension, prostate cancer, chronic bronchitis presenting to ER with cough, fatigue, chest congestion and shortness of breath.
Was diagnosed with Influenza A at [facility] and given Tamiflu for 5-days, which he completed. He had initially improved but notes worsening complaints following completion of treatment. On arrival, he is Flu A positive again, CXR not showing
appreciable findings on admission 11/09/24. Planning for d/c but developed worsening SOB, wheezing today 11/12/24. Repeat CXR showing new L sided infiltrate. proBNP now 7880.
Denies prior known history of lung disease, managed by the [facility]. He notes in the past he had a diagnosis of chronic bronchitis. Prior to this no baseline respiratory complaints.
Nonsmoker, denies exposure history. Not on O2 at home.
Subacute influenza infection, completed tamiflu as OP
Acute HFpEF, probNP 7880
Afib w/ RVR
Severe PH on ECHO
SOB/wheezing
Leukocytosis
Abnormal CXR, L sided infiltrate
Strep Ag positive, likely secondary strep PNA infection
Conditions present [employer]
Chronic bronchitis, not maintained on OP inhalers
Dilatation of thoracic aorta
Mitral regurgitation
Hypertension
LV dysfunction
Atrial fibrillation on Xarelto
Anxiety/depression
Plan
Respiratory status is slightly improved
Continue supplemental oxygen-currently on 4 L - 92% saturation-attempt to wean
Eventual home evaluation
Nebulizers-Xopenex and ipratropium bromide 3 times daily
Mucolytic's-Mucinex 1200 mg twice daily
Add incentive spirometry and flutter
Vest therapy
Chest x-ray 11/13/2024-left lung pneumonia increased, right lower lobe pneumonia stable
Cultures reviewed
Urine strep antigen positive
MRSA screen negative
Blood cultures negative
Influenza A+
Sputum culture 11/13/2024-moderate WBCs and mixed bacteria
Empiric antibiotics ceftriaxone and doxycycline
Infectious disease following-correspondence reviewed
Follow chest x-ray
Follow leukocytosis and temperature curve-leukocytosis persists, no temperature
Diuresis as tolerated
Monitor renal function, electrolytes, intake/output, lower extremity edema and weight
Replace electrolytes as needed
Monitor rhythm
Metoprolol and amiodarone continue
Echocardiogram reviewed 11/10/2024-EF 55%, moderate mitral regurgitation, severe pulm hypertension-PA systolic 65
Cardiology following-correspondence reviewed
Will need outpatient pulmonary evaluation in our office including PFTs and 6MW
Risk factors assessed for underlying sleep disordered breathing also noted
Recommend outpatient sleep evaluation/PSG testing as indicated
Dr. Alcantar reviewed with son and were at bedside on 11/14/2024
Diagnostic Data
CXR 11/12/24- Right basilar opacification suspicious for pneumonia without significant change. Left chest opacification, at least in part groundglass, increased, could represent pneumonitis.
11/09/24- Cardiomegaly. Right basilar opacification which could represent pneumonia
CT CHEST 11/10/24- 1). There is no pulmonary embolism
2).There is interstitial and confluent alveolar airspace disease in the right lower lobe consistent with pneumonia
3). There is less prominent interstitial airway disease in the left lower lobe, lingula, posterior left upper lobe and lung apices which is more likely scarring than pneumonia of the latter is not excluded
ECHO 11/10/24- Normal biventricular size and systolic function without regional wall motion abnormality. Left ventricular ejection fraction is 50-55% by volumetric assessment - but difficult to assess due to rapid atrial fibrillation. Enlarged
right ventricular size with normal function. Mild to moderate mitral regurgitation. Mild aortic regurgitation. Moderate tricuspid regurgitation with severe pulmonary hypertension. Dilated aortic root and ascending aorta (SOV 4.3 cm, ascending 4.3
cm) Compared to the prior study on 03/25/2024, right ventricle is now mildly enlarged. Pulmonary hypertension is now seen. Remaining findings are similar.
Subjective Data
-
Date of Service:
Date of Service: November 14, 2024
Chief Complaint: Pulmonary Follow Up
Subjective:
Feels a little better, still has productive cough, less short of breath, no chest pain or abdominal pain
Review of Systems
General: Other (Per HPI)
Objective Data
Data Reviewed
Vital Signs / I&O:
Vital Signs
Temp Pulse Resp BP Pulse Ox
97.4 F 89 18 142/93 93
11/14/24 11:28 11/14/24 11:28 11/14/24 11:28 11/14/24 11:28 11/14/24 11:28
Intake and Output
11/13/24 11/14/24 11/15/24
06:59 06:59 06:59
Intake Total 1080 / 1080 1210 / 1210
Output Total 1050 / 1050 2125 / 2125
Balance 30 / 30 -915 / -915
SaO2: 93
Nasal Cannula flow liters per minute: 4
Physical Exam
General: Respiratory Distress (n), Comfortable and Other (NAD)
HEENT: Normocephalic, Anicteric and Moist Mucous Membranes
Cardiovascular: Irregular Rhythm
Respiratory: Crackles and Non-Labored Respirations
GI: Soft, Non Distended and Non Tender
Neurology: Awake, Alert and No Motor Deficits
Skin: Warm, Good Color, Cyanosis (n) and Jaundice (n)
Labs/Micro/Reports
Lab Data
11/14/24 08:04
11/14/24 08:04
Microbiology
11/12/24 15:27 Nose MRSA Screen - Final
No Methicillin Resistant Staphylococcus aureus isolated.
11/09/24 17:52 Blood/Venous Blood Culture - Preliminary
No Growth in 4 days- Final report to follow
11/09/24 17:52 Blood/Venous Blood Culture - Preliminary
No Growth in 4 days- Final report to follow
11/13/24 13:29 Sputum Gram Stain - Preliminary
11/13/24 01:59 Urine Streptococcus pneumoniae Antigen (M - Final
Positive for Strep pneumo Ag
[2024-11-14] MEDS: FARXIGA 10 MG PO (13:23)
[2024-11-14] MEDS: ALDACTONE 12.5 MG PO (13:24)
--- NOTE | 2024-11-14 13:51 | W.PN.HOSP.TC ---
Today's Communication/Plan
-
Continue Rocephin and Doxycycline
Abdominal ultrasound tomorrow, NPO after midnight
Assessment / Plan
Assessment / Plan
Physical Exam
General: No Apparent Distress, Comfortable and Conversant
HEENT: Normocephalic and Moist mucous membranes
Respiratory: Mild Wheezes. Crackles.
Cardiac: S1/S2 and Regular Rate
GI: Soft, Non Tender and Normal Bowel Sounds
Musculoskeletal: No Cyanosis and No Edema
Skin: Warm and Dry
Neuro: Awake, Alert, Oriented x 3 and Nonfocal/grossly intact
Psych: Calm and Intact Judgment/Insight
Assessment/Plan
#Concern for Sepsis Secondary to Pneumonia
#Suspected Right Lower Lobe Pneumonia
#History of RLL Pneumonia
#Influenza A
#Acute Hypoxic Respiratory Insufficiency Secondary to the Above
#History of COVID-pneumonia with post-COVID cough
-Patient hypoxic overnight 11/12-11/13 -- concern for CHF exacerbation/mucus/congestion/underlying asthma/slow recovery from pneumonia
-Labs previously had worsening leukocytosis and immature granulocytes -- suspected possible ongoing pneumonia; no new skin rash/cellulitis, no symptoms or signs of UTI, and no concern for a [employer]
infection.
-Given wheezing, and suspected persistent pneumonia, repeated CXR with worsening left sided pneumonia, right-sided pneumonia still present
-Consulted pulmonary, appreciate their evaluation and recommendations
-CXR suggested pneumonitis -- ordered speech evaluation -- VSE done -- diet downgraded to IDDSI 6 per Speech Recommendations
-Continue Rocephin and Doxycycline -- consulted ID for further evaluation, appreciate their recommendations
-Patient already finished a 5-day course of Tamiflu within the 1 week prior to arrival
-Sputum Cultures unable to be obtained as of yet
-Blood cultures with no growth to date
-Levalbuterol and Ipratropium QID (no albuterol given tachycardia)
-IV fluids given but careful given history of CHF
-Mucinex
-Vest therapy
-CT Chest PE study given persistent tachycardia, and given patient's hypoxia and SOB: no PE, RLL pneumonia confirmed
-In the setting of elevated proBNP, Lasix was started
-Switch Lasix IV 20 mg daily to PO
#Mild Hypokalemia - RESOLVED
-Replace
-Monitor CMP
-Magnesium normal
#Atrial fibrillation
- Continue Xarelto 20mg daily for OAC
- Monitor on telemetry given tachycardia, leukocytosis, and A-Fib on presentation
- Given rapid heart rates, concern for A-Fib with RVR, consulted cardiology
- Home Toprol XL 50 mg BID (was previously increased to 100 mg BID, but then decreased again due to wheezing)
- Amiodarone 200 mg twice daily for better rate control
- Outpatient electrophysiology consultation
#Elevated AST/ALT
-Possibly from infection/pneumonia/Influenza/recent Tamiflu treatment
-RUQ ultrasound: Cholelithiasis. No secondary findings to suggest acute cholecystitis. No evidence for biliary ductal dilation. Diffuse increased echogenicity of the liver, a nonspecific finding suggesting fatty infiltration and/or hepatocellular
disease. No evidence of a focal hepatic lesion. The spleen, pancreas, and abdominal aorta are unable to be adequately visualized, with shadowing from a large amount of overlying bowel gas (per radiologist)
-Monitor CMP
#Heart failure with improved ejection fraction
-Continue GDMT with Toprol XL and entresto
-Lasix IV 20 mg daily switch to PO
-Add spironolactone 12.5 mg a day
-Add Farxiga 10 mg daily pending pricing from case management
#Moderate aortic regurgitation
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
-Continue beta harshad
#Mitral valve prolapse
#Mild to moderate mitral regurgitation
#Cardiomegaly on Chest X-Ray
-Continue Entresto
-TTE 11/10/2024 LVEF 50 to 55%, enlarged RV with normal function, mild to moderate mitral regurgitation, mild aortic regurgitation, moderate tricuspid regurgitation with severe pulmonary hypertension, dilated aortic root and ascending aorta
#Severe pulmonary hypertension
-RV enlargement with normal function seen. Monitor over time.
#Essential hypertension
#Prostate cancer
#Anxiety/depression
-Continue paroxetine
Code Status: Full code
Speech: VSE completed. Pt with significant pharyngeal residue and penetration to vocal folds at times with thin liquids. Suspect chronic dysphagia based on reports of years-long dysphagia. Rec downgrade to IDDSI Level 6
(soft/bite-sized) and thin liquids with strategies. Also rec to consider OP dysphagia tx.
DVT Prophylaxis: Xarelto
Anticipated Discharge: 24 - 48 hours
Subjective/Interval History
-
Date of Service: November 14, 2024
Patient was seen and examined. He reports coughing up more with mucus.
Objective Data
-
Labs:
Laboratory Results
11/14/24
08:04
WBC 22.9 H
Hgb 12.0 L
Hct 36.3 L
Plt Count 397
Sodium 133 L
Potassium 3.8
Chloride 97 L
Carbon Dioxide 28
BUN 17
Creatinine 0.5 L
Glucose 109 H
Calcium 8.6
Total Bilirubin 1.3
AST 80 H
ALT 123 H
Alkaline Phosphatase 117
Vital Signs:
Vital Signs
Temp Pulse Resp BP Pulse Ox
97.4 F 89 18 142/93 93
11/14/24 11:28 11/14/24 13:24 11/14/24 11:28 11/14/24 13:24 11/14/24 12:42
I&O
11/13/24 11/14/24 11/15/24
06:59 06:59 06:59
Intake Total 1080 / 1080 1210 / 1210
Output Total 1050 / 1050 5 / 2125
Balance 30 / 30 -915 / -915
--- NOTE | 2024-11-14 14:31 | CM ---
Called pt's pharmacy at [facility] [phone] and told Farxiga 10mg daily will need a prior auth and Jardiance 10 mg daily will be $43/30 day supply copay.
[2024-11-14 15:28] VITALS: BP 122/84
[2024-11-14 19:07] VITALS: BP 115/78
[2024-11-14] MEDS: VIBRAMYCIN 100 MG PO (20:52)
[2024-11-14] MEDS: MELATONIN 3 MG PO (21:14)
[2024-11-14 23:27] VITALS: BP 128/87
[2024-11-15] VITALS (7 sets, daily range): BP systolic 109–140; BP diastolic 76–92; O2SAT 85
[2024-11-15 06:03] LABS: % Basophils 0.1 % (0-2); % Eosinophils 0.4 % (0-6); % Monocytes 8.2 % (1.7-9.3); % Neutrophils 83.3 % (42.2-75.2); Absolute Eosinophils 0.1 10^3/uL (0-0.7); Absolute Immature Granulocytes 0.2 10^3/uL (0-0.05); Absolute Lymphocytes 1.1 10^3/uL (1.2-3.4); Absolute Monocytes 1.3 10^3/uL (0.1-0.6); Absolute Neutrophils 13.1 10^3/uL (1.4-6.5); Hematocrit 35.6 % (39.0-52.0); Mean Corp Hgb Conc. 33.7 g/dL (33.0-37.0); Mean Corpuscular Hgb 31.6 pg (27.0-31.0); Mean Corpuscular Volume 93.7 fL (80.0-94.0); Mean Platelet Volume 10.2 fL (7.4-10.4); Nucleated Red Blood Cells % 0 % (-); Platelet Count 407 10^3/uL (130-400); Red Cell Dist. Width 12.5 % (11.5-14.5); White Blood Cell Count 15.7 10^3/uL (4.8-10.8)
[2024-11-15 06:18] LABS: ALT (SGPT) 168 U/L (0-50); AST (SGOT) 140 U/L (17-59); Albumin 2.9 g/dl (3.5-5.0); Alkaline Phosphatase 107 U/L (38-126); Blood Urea Nitrogen 17 mg/dl (9-20); Calcium 8.5 mg/dl (8.4-10.2); Carbon Dioxide 32 mmol/L (22-30); Chloride 94 mmol/L (98-107); Estimated Creatinine Clearance > 125 ml/min; Glucose 103 mg/dl (70-99); Potassium 3.7 mmol/L (3.5-5.1); Sodium 134 mmol/L (135-145); Total Bilirubin 1.1 mg/dl (0.2-1.3); Total Protein 5.5 g/dl (6.3-8.2); eGFR > 60.00
--- NOTE | 2024-11-15 07:09 | W.PN.HOSP.TC ---
Today's Communication/Plan
-
SNF bed pending
Continue antibiotics
Continue Mucolytics, Vest Therapy, remainder of pulmonary toilet
O2 assessment for outpatient oxygen needs
Continue to monitor on tele -- amiodarone stopped due to LFTs, consider Diltiazem if rate goes up
Assessment / Plan
Assessment / Plan
Physical Exam
General: No Apparent Distress, Comfortable and Conversant
HEENT: Normocephalic and Moist mucous membranes
Respiratory: Mild Wheezes. Crackles.
Cardiac: S1/S2 and Regular Rate
GI: Soft, Non Tender and Normal Bowel Sounds
Musculoskeletal: No Cyanosis and No Edema
Skin: Warm and Dry
Neuro: Awake, Alert, Oriented x 3 and Nonfocal/grossly intact
Psych: Calm and Intact Judgment/Insight
Assessment/Plan
#Concern for Sepsis Secondary to Pneumonia
#Suspected Right Lower Lobe Pneumonia
#History of RLL Pneumonia
#Influenza A
#Acute Hypoxic Respiratory Insufficiency Secondary to the Above
#History of COVID-pneumonia with post-COVID cough
-Patient already finished a 5-day course of Tamiflu within the 1 week prior to arrival
-CT Chest PE study was previously done given patient's persistent tachycardia, and given patient's hypoxia and SOB: no PE, RLL pneumonia confirmed
-Patient hypoxic overnight 11/12-11/13 -- concern for CHF exacerbation/mucus/congestion/underlying asthma/slow recovery from pneumonia
-Labs during this hospitalization had worsening leukocytosis and immature granulocytes -- suspected possible ongoing pneumonia -- did have worsening pneumonia and also possible silent aspiration; no other source of infection
-CXR suggested pneumonitis -- ordered speech evaluation -- VSE done -- diet downgraded to IDDSI 6 per Speech Recommendations
-Now, WBC and numbers are improving overall
-Sputum Cultures insignificant
-Strep pneumo Ag positive
-Blood cultures with no growth to date
-Continue Rocephin and Doxycycline (as per ID recommendations)
-Levalbuterol and Ipratropium QID (no albuterol given tachycardia)
-Mucinex and vest therapy
-In the setting of elevated proBNP, Lasix was started
-Switch Lasix IV 20 mg daily to PO 20 mg daily
-Appreciate pulmonary, ID, cardiology
#Mild Hypokalemia - RESOLVED
-Replace
-Monitor CMP
-Magnesium normal
#Atrial Fibrillation
- Continue Xarelto 20mg daily for OAC
- Monitor on telemetry given tachycardia, leukocytosis, and A-Fib on presentation
- Given rapid heart rates, concern for A-Fib with RVR, consulted cardiology
- Home Toprol XL 50 mg BID (was previously increased to 100 mg BID, but then decreased again due to wheezing)
- Amiodarone was started this hospitalization but now stopped due to rising AST and ALT -- when LFTs normal consider rechallenge with amiodarone
- Consider adding diltiazem if heart rate increases
- Outpatient electrophysiology consultation
#Elevated AST/ALT
-Possibly from infection/pneumonia/Influenza/recent Tamiflu treatment
-RUQ ultrasound: Cholelithiasis. No secondary findings to suggest acute cholecystitis. No evidence for biliary ductal dilation. Diffuse increased echogenicity of the liver, a nonspecific finding suggesting
fatty infiltration and/or hepatocellular disease. No evidence of a focal hepatic lesion. The spleen, pancreas, and abdominal aorta are unable to be adequately visualized, with shadowing from a large
amount of overlying bowel gas (per radiologist)
-Monitor CMP
-Amiodarone was started this hospitalization but now stopped due to rising AST and ALT
-Consider stopping Doxycycline due to elevated AST and ALT
#Heart failure with improved ejection fraction
-Continue GDMT with Toprol XL and entresto (per cardiology, consider stopping Entresto)
-Lasix IV 20 mg daily switch to PO
-New: spironolactone 12.5 mg a day
-New: Farxiga 10 mg daily
#Moderate aortic regurgitation
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
-Continue beta harshad
#Mitral valve prolapse
#Mild to moderate mitral regurgitation
#Cardiomegaly on Chest X-Ray
-Continue Entresto
-TTE 11/10/2024 LVEF 50 to 55%, enlarged RV with normal function, mild to moderate mitral regurgitation, mild aortic regurgitation, moderate tricuspid regurgitation with severe pulmonary hypertension, dilated aortic root and ascending aorta
#Severe pulmonary hypertension
-RV enlargement with normal function seen. Monitor over time.
#Essential hypertension
#Prostate cancer
#Anxiety/depression
-Continue paroxetine
Code Status: Full code
Speech: VSE completed. Pt with significant pharyngeal residue and penetration to vocal folds at times with thin liquids. Suspect chronic dysphagia based on reports of years-long dysphagia. Rec downgrade to IDDSI Level 6
(soft/bite-sized) and thin liquids with strategies. Also rec to consider OP dysphagia tx.
DVT Prophylaxis: Xarelto
Anticipated Discharge: 24 - 48 hours
Subjective/Interval History
-
Date of Service: November 15, 2024
Patient was seen and examined. He reported doing better, cough is less.
Objective Data
-
Labs:
Laboratory Results
11/15/24
04:47
WBC 15.7 H
Hgb 12.0 L
Hct 35.6 L
Plt Count 407 H
Sodium 134 L
Potassium 3.7
Chloride 94 L
Carbon Dioxide 32 H
BUN 17
Creatinine 0.6 L
Glucose 103 H
Calcium 8.5
Total Bilirubin 1.1
AST 140 H
ALT 168 H
Alkaline Phosphatase 107
Vital Signs:
Vital Signs
Temp Pulse Resp BP Pulse Ox
97.7 F 69 24 140/81 99
11/15/24 03:10 11/15/24 03:10 11/15/24 03:10 11/15/24 03:10 02/16/25 03:10
I&O
11/14/24 11/15/24 11/16/24
06:59 06:59 06:59
Intake Total 1210 / 0 1140 / 1140
Output Total 2124
Balance -915 / -915 -710 / -710
[2024-11-15] MEDS: XOPENEX 0.63 MG INHALANT SOLUTION INH ×3 (07:24→20:03)
[2024-11-15] MEDS: ATROVENT NEBULES 0.5 MG INH ×3 (07:24→20:03)
[2024-11-15] MEDS: BenGay-Like 1 APPLIC TOPICAL (08:14)
[2024-11-15] MEDS: ROCEPHIN 1000 MG IV (08:14)
[2024-11-15] MEDS: STERILE WATER FOR INJECTION 10 ML IV (08:14)
[2024-11-15] MEDS: MUCINEX 1200 MG PO ×2 (08:18→20:34)
[2024-11-15] MEDS: ENTRESTO 24 MG/26 MG 0.5 TAB PO ×2 (08:18→20:35)
[2024-11-15] MEDS: VIBRAMYCIN 100 MG PO ×2 (08:20→20:36)
[2024-11-15] MEDS: ALDACTONE 12.5 MG PO (08:20)
[2024-11-15] MEDS: FARXIGA 10 MG PO (08:20)
[2024-11-15] MEDS: PAXIL 30 MG PO ×2 (08:20→20:35)
[2024-11-15] MEDS: THERAGRAN 1 TABLET PO (08:20)
[2024-11-15] MEDS: LASIX 20 MG PO (08:20)
[2024-11-15] MEDS: XARELTO 20 MG PO (08:20)
[2024-11-15] MEDS: TOPROL XL 50 MG PO ×2 (08:21→20:36)
[2024-11-15] MEDS: PACERONE 200 MG PO (08:21)
--- NOTE | 2024-11-15 10:52 | W.PN.ID1 ---
Date of Service
Date of Service: November 15, 2024
Today's Communication
Continue antibiotics.
Assessment / Plan
Influenza A infection
- s/p 5 day course of Tamiflu
Suspected post influenza pneumonia (pneumococcus urinary antigen positive)
Leukocytosis
A-fib
Hx Prostate CA
HTN
Recommendations:
Patient feeling better today.
Follow CXR, or if clinical decline can obtain CT scan.
Repeat sputum culture has been obtained, but not revealing.
Continue ceftriaxone/doxycycline for today.
Continue to follow clinically.
Further recommendations as additional data is returned.
����������������������������������������������������������
Chief Complaint
-: Pneumonia
Subjective / Review of Systems
Patient seen and examined. Reports feeling improved today.
Review of Systems: No Fever, No Chills, Cough and Sputum Production (Mild)
Vital Signs / Physical Exam
Vital Signs
Vital Signs
Temp Pulse Resp BP Pulse Ox
98.7 F 95 18 136/91 92
11/15/24 07:54 11/15/24 08:21 11/15/24 07:54 11/15/24 08:21 11/15/24 08:12
Physical Exam
Constitutional: No Acute Distress, Comfortable and Non-toxic
Eyes: Sclera Anicteric
Cardiovascular: S1/S2; Negative S3/S4
Pulmonary: Coarse and Non Labored
Gastrointestinal: Soft, Non Tender and Non Distended
Extremities: Negative Edema or Cyanosis
Neurological: Awake and Alert
Psychological: Calm
Objective Data
Lab Data
Lab Results
11/15/24 04:47
11/15/24 04:47
Estimated Creat Clear > 125 ml/min 11/15/24 04:47
Lactic Acid Cancelled 11/09/24 21:30
Total Bilirubin 1.1 mg/dl (0.2-1.3) 11/15/24 04:47
AST 140 U/L (17-59) H 11/15/24 04:47
ALT 168 U/L (0-50) H 11/15/24 04:47
Alkaline Phosphatase 107 U/L (38-126) 11/15/24 04:47
Most recent labs reviewed.
Micro Results:
11/09/24 17:52 Blood Culture - Final
Blood/Venous No Growth - Final Report
11/09/24 17:52 Blood Culture - Final
Blood/Venous No Growth - Final Report
11/13/24 13:29 Respiratory Culture - Preliminary
Sputum Usual Respiratory Carli
Gram Stain - Preliminary
11/12/24 15:27 MRSA Screen - Final
Nose No Methicillin Resistant Staphylococcus aureus isolated.
11/13/24 01:59 Streptococcus pneumoniae Antigen (M - Final
Urine Positive for Strep pneumo Ag
11/09/24 15:40 Influenza Types A & B ([facility]) - Final
Nasal Swab Influenza A Positive, NAAT
Imaging:
11/13/2024 Abdominal ultrasound: Cholelithiasis, but no findings to suggest acute cholecystitis. No evidence for biliary ductal dilatation. The spleen, pancreas and abdominal aorta are unable to be adequately visualized secondary to overlying bowel
gas. Please see full dictation for additional detail.
11/13/2024 CXR (portable): Increased left lung infiltrate. Parenchymal opacity also noted in the right lower lung. Please see full dictation for additional detail. Film personally viewed.
11/12/2024 CXR (2 view): Right basilar opacification without significant change from prior.
--- NOTE | 2024-11-15 11:51 | CM ---
Met with patient's spouse; explained IMM benefit; form signed @ 1139
Updated clinicals sent via [facility] to [facility] for SNF placement
Plan: discharge to SNF pending bed availability
[2024-11-15] MEDS: BenGay-Like TOPICAL ×3 (12:41→20:36)
--- NOTE | 2024-11-15 14:08 | W.PN.CARDCBS ---
Today's Communication / Plan
-
Hold amiodarone given rising LFTs
Consider adding diltiazem if heart rate increases
Hold doxycycline related to potential for hepatotoxicity?
When LFTs normal consider rechallenge with amiodarone
Discharge planning
Impression / Plan
-
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
Assessment:
Presentation with weakness, cough
Influenza A +
Leukocytosis
PNA
Acute HFimpEF
Acute hypoxic respiratory insufficiency secondary to above
Persistent atrial fibrillation, now with RVR
History of prior CV x2, 04/2022 and 11/25/23
Chronic OAC with xarelto
History of recovered NICM
Severe pulm HTN
Chronic bronchitis
Anxiety/depression/PTSD
Former vaping/medical marijuana use for PTSD
History of ETOH use disorder
Elevated transaminases
Echo 03/25/2024: Normal LV systolic function, moderate biatrial enlargement, MVP with mitral regurgitation at least moderate, moderate TR, mild to moderate AI, mild to moderate dilation of proximal aorta
ECHO 11/10/2024: EF 50 to 55%, enlarged RV size with normal function, mild to moderate MR, mild AR, moderate TR with severe pulmonary hypertension, dilated aortic root and ascending aorta
Plan:
Overall, he looks stable from the standpoint of heart failure with improved EF Farxiga and spironolactone in addition to long-acting metoprolol and low-dose Entresto. Would consider discontinuation of Entresto.
Heart rate in atrial fibrillation is reasonably controlled at this time.
However LFTs are rising and he is on amiodarone which could be a cause of hepatotoxicity. Will hold amiodarone for now and consider a rechallenge once LFTs normalize.
Doxycycline also associated with hepatic injury defer to primary service and ID as to whether or not this should be discontinued.
If heart rate rises, we could add diltiazem for better rate control.
Outpatient electrophysiology consult is pending with Dr. Valdez
Okay to proceed with discharge planning.. He is now on
Afib history:
-He reports he has history of cardioversion 04/2022 which lasted approximately 9 months, then cardioversion 11/25/23 which lasted briefly however patient then reverted to A-fib. He reports since that time he has been treated as more persistent to
permanent atrial fibrillation. He has not been on antiarrhythmic drug therapy in the past and has no history of ablation. He reports typically in A-fib he is asymptomatic when lying or sitting, however states more recently he has been feeling more
limited in terms of activity level and with any ambulation his heart rate 'shoots up' and he becomes symptomatic with this including weakness, dyspnea, and palpitations, particularly worse when he is sick.
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
Subjective
Date of Service: November 15, 2024:
He offers no complaints, plan is to go to rehab
Medications: Ceftriaxone, Mucinex, paroxetine, rivaroxaban 20 mg a day, Entresto 0.5 twice daily, Xopenex, Atrovent, metoprolol ER 50 twice daily, amiodarone 200 3 times daily, doxycycline 100 twice daily, spironolactone 12.5 mg daily, dapagliflozin
10 mg a day, furosemide 20 mg a day
109/76, pulse 101, respiratory 18, afebrile, saturation is 92%, intake and output -0.7 L, weight is 96.1 kg, if accurate down 1.6 kg, lungs are clear, regular rate and rhythm but rate is adequately controlled, no obvious murmurs, abdomen benign not
much edema and JVD okay
Telemetry: Heart rate controlled
White count 15.7, hemoglobin 12, platelets 4 7, potassium 3.7, bicarb 32, BUN/creatinine 17 and 0.6, AST 140, ALT 168, both up somewhat
Objective
Labs:
11/15/24 04:47
11/15/24 04:47
Labs
Hgb 12.0 g/dL (13.0-18.0) L 11/15/24 04:47
Hct 35.6 % (39.0-52.0) L 11/15/24 04:47
Plt Count 407 10^3/uL (130-400) H 11/15/24 04:47
Sodium 134 mmol/L (135-145) L 11/15/24 04:47
Potassium 3.7 mmol/L (3.5-5.1) 11/15/24 04:47
BUN 17 mg/dl (9-20) 11/15/24 04:47
Creatinine 0.6 mg/dL (0.7-1.3) L 11/15/24 04:47
Glucose 103 mg/dl (70-99) H 11/15/24 04:47
Vital Signs and I&O:
Vital Signs
Temp Pulse Resp BP Pulse Ox
36.5 C 101 18 109/76 92
11/15/24 11:00 11/15/24 13:07 11/15/24 13:07 11/15/24 11:00 11/15/24 13:39
Vital Signs
Temp Pulse Resp BP Pulse Ox
36.5 C 101 18 109/76 92
11/15/24 11:00 11/15/24 13:07 11/15/24 13:07 11/15/24 11:00 11/15/24 13:39
Intake & Output
11/13/24 11/14/24 11/15/24 11/16/24
07:59 07:59 07:59 07:59
Intake Total 1080 / 1080 1210 / 1210 1140 / 1140
Output Total 1050 / 1050 5 / 2125 185 / 185
Balance -915 / -915 -710 / -710
Physical Exam
Physical Exam
See above
--- NOTE | 2024-11-15 14:38 | W.PN.PUL.V3 ---
Today's Communication / Plan
-
Continue to wean FiO2
Increase activity
Eventual follow-up chest x-ray
Antibiotics
Gentle diuresis
Amiodarone held
Abdominal ultrasound
Assessment
-
Patient is a 74 year old male with past medical history of paroxysmal atrial fibrillation, chronic heart failure, hypertension, prostate cancer, chronic bronchitis presenting to ER with cough, fatigue, chest congestion and shortness of breath.
Was diagnosed with Influenza A [facility] and given Tamiflu for 5-days, which he completed. He had initially improved but notes worsening complaints following completion of treatment. On arrival, he is Flu A positive again, CXR not showing
appreciable findings on admission 11/09/24. Planning for d/c but developed worsening SOB, wheezing today 11/12/24. Repeat CXR showing new L sided infiltrate. proBNP now 7880.
Denies prior known history of lung disease, managed by the [place]. He notes in the past he had a diagnosis of chronic bronchitis. Prior to this no baseline respiratory complaints.
Nonsmoker, denies exposure history. Not on O2 at home.
Subacute influenza infection, completed tamiflu as OP
Acute HFpEF, probNP 7880
Afib w/ RVR
Severe PH on ECHO
SOB/wheezing
Leukocytosis
Abnormal CXR, L sided infiltrate
Strep Ag positive, likely secondary strep PNA infection
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
Chronic bronchitis, not maintained on OP inhalers
Dilatation of thoracic aorta
Mitral regurgitation
Hypertension
LV dysfunction
Atrial fibrillation on Xarelto
Anxiety/depression
Plan
Respiratory status continues to improve
Continue supplemental oxygen-currently on 2 L - 92% saturation-attempt to wean
Eventual home evaluation
Nebulizers-Xopenex and ipratropium bromide 3 times daily
Mucolytic's-Mucinex 1200 mg twice daily
Incentive spirometry and flutter continues
Vest therapy continues
Chest x-ray 11/13/2024-left lung pneumonia increased, right lower lobe pneumonia stable
Cultures reviewed
Urine strep antigen positive
MRSA screen negative
Blood cultures negative
Influenza A+
Sputum culture 11/13/2024-moderate WBCs and mixed bacteria
Empiric antibiotics ceftriaxone and doxycycline
Infectious disease following-correspondence reviewed
Follow chest x-ray
Leukocytosis improving
Diuresis continues as tolerated
Monitor renal function, electrolytes, intake/output, lower extremity edema and weight
Replace electrolytes as needed
Monitor rhythm
Metoprolol and amiodarone continue-Amio held 11/15/2024 due to rising LFTs
Echocardiogram reviewed 11/10/2024-EF 55%, moderate mitral regurgitation, severe pulm hypertension-PA systolic 65
Cardiology following-correspondence reviewed
Monitor LFTs
Abdominal ultrasound 11/13/2024-cholelithiasis, no evidence for biliary duct dilation, fatty liver
Will need outpatient pulmonary evaluation in our office including PFTs and 6MW
Risk factors assessed for underlying sleep disordered breathing also noted
Recommend outpatient sleep evaluation/PSG testing as indicated
Dr. Alcantar reviewed with son and were at bedside on 11/14/2024 and with the on 11/15/2024
Diagnostic Data
CXR 11/12/24- Right basilar opacification suspicious for pneumonia without significant change. Left chest opacification, at least in part groundglass, increased, could represent pneumonitis.
11/09/24- Cardiomegaly. Right basilar opacification which could represent pneumonia
CT CHEST 11/10/24- 1). There is no pulmonary embolism
2).There is interstitial and confluent alveolar airspace disease in the right lower lobe consistent with pneumonia
3). There is less prominent interstitial airway disease in the left lower lobe, lingula, posterior left upper lobe and lung apices which is more likely scarring than pneumonia of the latter is not excluded
ECHO 11/10/24- Normal biventricular size and systolic function without regional wall motion abnormality. Left ventricular ejection fraction is 50-55% by volumetric assessment - but difficult to assess due to rapid atrial fibrillation. Enlarged
right ventricular size with normal function. Mild to moderate mitral regurgitation. Mild aortic regurgitation. Moderate tricuspid regurgitation with severe pulmonary hypertension. Dilated aortic root and ascending aorta (SOV 4.3 cm, ascending 4.3
cm) Compared to the prior study on 03/25/2024, right ventricle is now mildly enlarged. Pulmonary hypertension is now seen. Remaining findings are similar.
Subjective Data
-
Date of Service:
Date of Service: November 15, 2024
Chief Complaint: Pulmonary Follow Up
Subjective:
Feels better, less short of breath, decreased cough, less dyspnea exertion, no abdominal pain
Review of Systems
General: Other (Per HPI)
Objective Data
Data Reviewed
Vital Signs / I&O:
Vital Signs
Temp Pulse Resp BP Pulse Ox
97.7 F 101 18 109/76 92
11/15/24 11:00 11/15/24 13:07 11/15/24 13:07 11/15/24 11:00 11/15/24 13:39
Intake and Output
11/14/24 11/15/24 11/16/24
06:59 06:59 06:59
Intake Total 1210 / 1210 1140 / 1140
Output Total 2125 / 2125 1850 / 1850
Balance -915 / -915 -710 / -710
SaO2: 92
Nasal Cannula flow liters per minute: 1
Physical Exam
General: Respiratory Distress (n), Comfortable and Other (NAD)
HEENT: Normocephalic, Anicteric and Moist Mucous Membranes
Cardiovascular: Irregular Rhythm
Respiratory: Crackles and Non-Labored Respirations
GI: Soft, Non Distended and Non Tender
Neurology: Awake, Alert and No Motor Deficits
Skin: Warm, Good Color, Cyanosis (n) and Jaundice (n)
Labs/Micro/Reports
Lab Data
11/15/24 04:47
11/15/24 04:47
Microbiology
11/13/24 13:29 Sputum Respiratory Culture - Final
Usual Respiratory Carli
11/13/24 13:29 Sputum Gram Stain - Final
11/09/24 17:52 Blood/Venous Blood Culture - Final
No Growth - Final Report
11/09/24 17:52 Blood/Venous Blood Culture - Final
No Growth - Final Report
11/12/24 15:27 Nose MRSA Screen - Final
No Methicillin Resistant Staphylococcus aureus isolated.
11/13/24 01:59 Urine Streptococcus pneumoniae Antigen (M - Final
Positive for Strep pneumo Ag
[2024-11-15] MEDS: MELATONIN PO (20:37)
[2024-11-16 03:05] VITALS: BP 134/91
[2024-11-16 06:00] VITALS: BMI 23.8
[2024-11-16] MEDS: XOPENEX 0.63 MG INHALANT SOLUTION INH ×3 (07:15→19:26)
[2024-11-16] MEDS: ATROVENT NEBULES 0.5 MG INH ×3 (07:15→19:26)
[2024-11-16 07:32] VITALS: BP 150/102
[2024-11-16] MEDS: THERAGRAN 1 TABLET PO (09:09)
[2024-11-16] MEDS: LASIX 20 MG PO (09:12)
[2024-11-16] MEDS: MUCINEX 1200 MG PO ×2 (09:12→19:32)
[2024-11-16] MEDS: FARXIGA 10 MG PO (09:14)
[2024-11-16] MEDS: ENTRESTO 24 MG/26 MG 0.5 TAB PO ×2 (09:14→19:32)
[2024-11-16] MEDS: VIBRAMYCIN 100 MG PO ×2 (09:14→19:32)
[2024-11-16] MEDS: PAXIL 30 MG PO ×2 (09:15→19:33)
[2024-11-16] MEDS: ALDACTONE 12.5 MG PO (09:15)
[2024-11-16] MEDS: XARELTO 20 MG PO (09:15)
[2024-11-16] MEDS: TOPROL XL 50 MG PO ×2 (09:15→19:33)
[2024-11-16] MEDS: STERILE WATER FOR INJECTION 10 ML IV (09:16)
[2024-11-16] MEDS: ROCEPHIN 1000 MG IV (09:16)
[2024-11-16] MEDS: BenGay-Like TOPICAL ×4 (09:17→19:33)
[2024-11-16 09:29] LABS: % Basophils 0.2 % (0-2); % Eosinophils 0.5 % (0-6); % Immature Granulocytes 0.9 % (0-0.5); % Lymphocytes 7.6 % (20.5-51.1); % Monocytes 8.5 % (1.7-9.3); % Neutrophils 82.3 % (42.2-75.2); Absolute Eosinophils 0.1 10^3/uL (0-0.7); Absolute Immature Granulocytes 0.1 10^3/uL (0-0.05); Absolute Lymphocytes 0.9 10^3/uL (1.2-3.4); Absolute Monocytes 1.1 10^3/uL (0.1-0.6); Absolute Neutrophils 10.1 10^3/uL (1.4-6.5); Hematocrit 35.7 % (39.0-52.0); Hemoglobin 11.7 g/dL (13.0-18.0); Mean Corp Hgb Conc. 32.8 g/dL (33.0-37.0); Mean Corpuscular Hgb 30.5 pg (27.0-31.0); Mean Corpuscular Volume 93.2 fL (80.0-94.0); Mean Platelet Volume 9.8 fL (7.4-10.4); Nucleated Red Blood Cells % 0 % (-); Platelet Count 431 10^3/uL (130-400); Red Blood Cell Count 3.83 10^6/uL (4.70-6.10); Red Cell Dist. Width 12.7 % (11.5-14.5); White Blood Cell Count 12.3 10^3/uL (4.8-10.8)
--- NOTE | 2024-11-16 09:51 | W.PN.CARDCBS ---
Addendum entered and electronically signed by Giovani Willis MD 11/16/24 12:05:
He feels better day by day. states that plan is to go to [facility] for rehab, then returned home.
Note of TB reviewed below. I agree with her findings, assessments and recommendations.
Medications: Xopenex, Atrovent, ceftriaxone, Mucinex, paroxetine, Xarelto, Entresto, multivitamins, metoprolol ER 50 twice daily, amiodarone 200 3 times daily, doxycycline, spironolactone 12.5, dapagliflozin, furosemide 20, amiodarone on hold
related to elevated LFTs.
118/79, pulse 87, respirate 18, sats are 90%, weight is 95.8 kg, down 0.3 kg, coarse breath sounds, irregular rate and rhythm, controlled no obvious murmurs, JVD okay, abdomen benign, not much edema
White count 12.3, hemoglobin 11.7, platelets 431, sodium 134, potassium 3.9, CO2 30, BUN and creatinine 14 and 0.6, AST is 93 was 140, ALT 150, was 168
Telemetry: Rate is controlled despite the fact that amiodarone currently on hold.
Impression/Plan:
For full impression, please see below.
Regarding heart failure with improved EF, he seems volume optimized at this point. Continue furosemide 20 mg a day, spironolactone 12.5 mg a day, metoprolol ER 50 mg twice daily, dapagliflozin, and low-dose Entresto.
A-fib rate is controlled despite the fact that amiodarone has been discontinued. Continue metoprolol ER 50 mg twice daily. Continue rivaroxaban.
Regarding elevated transaminases, these are improved off amiodarone. Will continue to hold amiodarone. At follow-up will need to assess heart rate, and if LFTs have normalized he could be considered for a rechallenge with amiodarone if additional
rate control is needed. However, an ablative strategy may be preferable. He will be seen by Dr. Valdez in follow-up.
Okay to proceed with discharge planning.
Recommended cardiac meds at discharge:
Rivaroxaban 20 mg a day
Entresto 1/2 tablet twice daily
Metoprolol ER 50 mg twice daily
Spironolactone 12.5 mg daily
Dapagliflozin 10 mg daily
Furosemide 20 mg daily
No amiodarone
Please have rehab check CMP in 1 week.
Please instruct rehab to call if resting heart rate consistently greater than 105
We have arranged for cardiac follow-up.
Please check CMP and 1 week
We will sign off, please call if questions.
Original Note:
Today's Communication / Plan
-
Continue to hold amiodarone given abnormal LFTs
Continue Toprol. Could consider utilization of diltiazem if heart rates increase
Would discharge home on Farxiga and Aldactone (new this admission)
Outpatient EP follow-up arranged
Discharge planning ongoing likely discharge to SNF
Impression / Plan
-
Primary Author'S Agent: previously Dr. Coon, now to follow with [facility], Dr. Valdez
Assessment:
Presentation 11/09/2024 with weakness, cough
Influenza A +
Leukocytosis
PNA
Acute HFimpEF
Acute hypoxic respiratory insufficiency secondary to above
Persistent atrial fibrillation, now with RVR
History of prior CV x2, 04/2022 and 11/25/23
Chronic OAC with xarelto
History of recovered NICM
Severe pulm HTN
Chronic bronchitis
Anxiety/depression/PTSD
Former vaping/medical marijuana use for PTSD
History of ETOH use disorder
Elevated transaminases
Echo 03/25/2024: Normal LV systolic function, moderate biatrial enlargement, MVP with mitral regurgitation at least moderate, moderate TR, mild to moderate AI, mild to moderate dilation of proximal aorta
ECHO 11/10/2024: EF 50 to 55%, enlarged RV size with normal function, mild to moderate MR, mild AR, moderate TR with severe pulmonary hypertension, dilated aortic root and ascending aorta
Plan:
Admitted with hypoxic respiratory failure secondary to influenza and pneumonia; Supportive care; s/p Tamiflu x 5 days; still on doxycycline and ceftriaxone. Respiratory status overall seems to be improving now on room air.
History of atrial fibrillation now permanent. Unsuccessful cardioversions in past. Continue to utilize rate controlled strategy for now. New to amiodarone 11/13/2023. However placed on hold/discontinued 11/15/2023 after noted to have abnormal
LFTs. Could consider rechallenging as outpatient once LFTs have normalized. If heart rate rises, we could add diltiazem for better rate control.
Outpatient electrophysiology consult scheduled for 11/24/[address] Valdez
Heart failure with preserved ejection fraction. He looks stable/euvolemic, heart failure with improved ejection fraction. Current weight 211 pounds. Continue Farxiga and spironolactone (new this admission) in addition to long-acting metoprolol
and low-dose Entresto.
Abnormal LFTs seem to be slowly trending down. Unclear if hepatotoxicity from amiodarone or doxycycline also associated with hepatic injury defer to primary service and ID as to whether or not this should be discontinued.
Okay to proceed with discharge planning.
Afib history:
-He reports he has history of cardioversion 04/2022 which lasted approximately 9 months, then cardioversion 11/25/23 which lasted briefly however patient then reverted to A-fib. He reports since that time he has been treated as more persistent to
permanent atrial fibrillation. He has not been on antiarrhythmic drug therapy in the past and has no history of ablation. He reports typically in A-fib he is asymptomatic when lying or sitting, however states more recently he has been feeling more
limited in terms of activity level and with any ambulation his heart rate 'shoots up' and he becomes symptomatic with this including weakness, dyspnea, and palpitations, particularly worse when he is sick.
Progress Note - Author'S Agent
Subjective
Date of Service: November 16, 2024
Patient seen and examined. Patient's at bedside. Notes improving energy but still does not feel to be at baseline. Ongoing cough which is primarily nonproductive. Denies chest pain, shortness of breath at rest, dizziness, lightheadedness or
palpitations.
Objective
Labs:
11/16/24 08:58
Labs
Hgb 11.7 g/dL (13.0-18.0) L 11/16/24 08:58
Hct 35.7 % (39.0-52.0) L 11/16/24 08:58
Plt Count 431 10^3/uL (130-400) H 11/16/24 08:58
Sodium 134 mmol/L (135-145) L 11/15/24 04:47
Potassium 3.7 mmol/L (3.5-5.1) 11/15/24 04:47
BUN 17 mg/dl (9-20) 11/15/24 04:47
Creatinine 0.6 mg/dL (0.7-1.3) L 11/15/24 04:47
Glucose 103 mg/dl (70-99) H 11/15/24 04:47
Vital Signs and I&O:
Vital Signs
Temp Pulse Resp BP Pulse Ox
98.9 F 86 18 150/102 91
11/16/24 07:32 11/16/24 09:15 11/16/24 07:32 11/16/24 09:15 11/16/24 07:32
Vital Signs
Temp Pulse Resp BP Pulse Ox
98.9 F 86 18 150/102 91
11/16/24 07:32 11/16/24 09:15 11/16/24 07:32 11/16/24 09:15 11/16/24 07:32
Intake & Output
11/14/24 11/15/24 11/16/24 11/17/24
06:59 06:59 06:59 06:59
Intake Total 1210 / 1210 1140 / 1140 1300 / 1300
Output Total 5 / 2125 1850 / 1850 1999
Balance -915 / -915 -710 / -710 -700 / -700
Physical Exam
Physical Exam
GEN: No distress, awake, Ox3 lying in bed
HEENT: supple, anicteric, mmm
LUNGS: Coarse breath sounds bilaterally improved after cough CTA, no wheezes/rales
CV: Irregularly irregular, S1/S2, 1/6 syst LSB, no murmur
ABD: soft, BS+, NT/ND
: Indwelling Stephens with yellow urine
EXT: No edema, clubbing or cyanosis
NEURO: Gross non-focal
SKIN: No rash, warm, dry, pink
[2024-11-16 09:57] LABS: ALT (SGPT) 150 U/L (0-50); AST (SGOT) 93 U/L (17-59); Albumin 2.9 g/dl (3.5-5.0); Alkaline Phosphatase 98 U/L (38-126); Blood Urea Nitrogen 14 mg/dl (9-20); Calcium 8.4 mg/dl (8.4-10.2); Carbon Dioxide 30 mmol/L (22-30); Chloride 94 mmol/L (98-107); Estimated Creatinine Clearance > 125 ml/min; Glucose 109 mg/dl (70-99); Potassium 3.9 mmol/L (3.5-5.1); Sodium 134 mmol/L (135-145); Total Bilirubin 1.3 mg/dl (0.2-1.3); Total Protein 5.4 g/dl (6.3-8.2); eGFR > 60.00
--- NOTE | 2024-11-16 09:58 | W.PN.PUL.V3 ---
Today's Communication / Plan
-
Assess discharge supplemental oxygen needs
Final course of antibiotics
Mucolytic's and mucus clearing devices
Increase activity
Outpatient pulm evaluation
Assessment
-
Patient is a 74 year old male with past medical history of paroxysmal atrial fibrillation, chronic heart failure, hypertension, prostate cancer, chronic bronchitis presenting to ER with cough, fatigue, chest congestion and shortness of breath.
Was diagnosed with Influenza [facility] and given Tamiflu for 5-days, which he completed. He had initially improved but notes worsening complaints following completion of treatment. On arrival, he is Flu A positive again, CXR not showing
appreciable findings on admission 11/09/24. Planning for d/c but developed worsening SOB, wheezing today 11/12/24. Repeat CXR showing new L sided infiltrate. proBNP now 7880.
Denies prior known history of lung disease, managed by the [place]. He notes in the past he had a diagnosis of chronic bronchitis. Prior to this no baseline respiratory complaints.
Nonsmoker, denies exposure history. Not on O2 at home.
Subacute influenza infection, completed tamiflu as OP
Acute HFpEF, probNP 7880
Afib w/ RVR
Severe PH on ECHO
SOB/wheezing
Leukocytosis
Abnormal CXR, L sided infiltrate
Strep Ag positive, likely secondary strep PNA infection
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
Chronic bronchitis, not maintained on OP inhalers
Dilatation of thoracic aorta
Mitral regurgitation
Hypertension
LV dysfunction
Atrial fibrillation on Xarelto
Anxiety/depression
Plan
Respiratory status slowly improving
Continue supplemental oxygen-currently on 1 L - 97% saturation
Eventual home supplemental oxygen needs
Nebulizers-Xopenex and ipratropium bromide 3 times daily
Mucolytic's-Mucinex 1200 mg twice daily continues
Incentive spirometry and flutter continues
Vest therapy continues-patient feels helping
Chest x-ray 11/13/2024-left lung pneumonia increased, right lower lobe pneumonia stable
Cultures reviewed
Urine strep antigen positive
MRSA screen negative
Blood cultures negative
Influenza A+
Sputum culture 11/13/2024-moderate WBCs and mixed bacteria
Empiric antibiotics ceftriaxone and doxycycline
Infectious disease following-correspondence reviewed
Follow chest x-ray
Leukocytosis continues to improve
Diuresis continues as tolerated
Monitor renal function, electrolytes, intake/output, lower extremity edema and weight
Replace electrolytes as needed
Monitor rhythm
Metoprolol and amiodarone continue-Amio held 11/15/2024 due to rising LFTs
Echocardiogram reviewed 11/10/2024-EF 55%, moderate mitral regurgitation, severe pulm hypertension-PA systolic 65
Cardiology following-correspondence reviewed
Monitor LFTs
Abdominal ultrasound 11/13/2024-cholelithiasis, no evidence for biliary duct dilation, fatty liver
Will need outpatient pulmonary evaluation in our office including PFTs and 6MW
Risk factors assessed for underlying sleep disordered breathing also noted
Recommend outpatient sleep evaluation/PSG testing as indicated
Dr. Alcantar reviewed with son and were at bedside on 11/14/2024 and with the on 11/15/2024 and 11/16/2024
Diagnostic Data
CXR 11/12/24- Right basilar opacification suspicious for pneumonia without significant change. Left chest opacification, at least in part groundglass, increased, could represent pneumonitis.
11/09/24- Cardiomegaly. Right basilar opacification which could represent pneumonia
CT CHEST 11/10/24- 1). There is no pulmonary embolism
2).There is interstitial and confluent alveolar airspace disease in the right lower lobe consistent with pneumonia
3). There is less prominent interstitial airway disease in the left lower lobe, lingula, posterior left upper lobe and lung apices which is more likely scarring than pneumonia of the latter is not excluded
ECHO 11/10/24- Normal biventricular size and systolic function without regional wall motion abnormality. Left ventricular ejection fraction is 50-55% by volumetric assessment - but difficult to assess due to rapid atrial fibrillation. Enlarged
right ventricular size with normal function. Mild to moderate mitral regurgitation. Mild aortic regurgitation. Moderate tricuspid regurgitation with severe pulmonary hypertension. Dilated aortic root and ascending aorta (SOV 4.3 cm, ascending 4.3
cm) Compared to the prior study on 03/25/2024, right ventricle is now mildly enlarged. Pulmonary hypertension is now seen. Remaining findings are similar.
Subjective Data
-
Date of Service:
Date of Service: November 16, 2024
Chief Complaint: Pulmonary Follow Up and Dyspnea Follow Up
Subjective:
Feels better, less short of breath, still has some chest congestion, feels the vest is helping, no chest pain or abdominal pain,
Review of Systems
General: Other (Per HPI)
Objective Data
Data Reviewed
Vital Signs / I&O:
Vital Signs
Temp Pulse Resp BP Pulse Ox
98.9 F 86 18 150/102 91
11/16/24 07:32 11/16/24 09:15 11/16/24 07:32 11/16/24 09:15 11/16/24 07:32
Intake and Output
11/15/24 11/16/24 11/17/24
06:59 06:59 06:59
Intake Total 1140 / 1140 1300 / 1300
Output Total 1850 / 1850 2000 / 2000
Balance -710 / -710 -700 / -700
SaO2: 91
Nasal Cannula flow liters per minute: 2
Physical Exam
General: Respiratory Distress (n), Comfortable and Other (NAD)
HEENT: Normocephalic, Anicteric and Moist Mucous Membranes
Cardiovascular: Irregular Rhythm
Respiratory: Crackles and Non-Labored Respirations
GI: Soft, Non Distended and Non Tender
Neurology: Awake, Alert and No Motor Deficits
Skin: Warm, Good Color, Cyanosis (n) and Jaundice (n)
Labs/Micro/Reports
Lab Data
11/16/24 08:58
11/16/24 08:58
Microbiology
11/13/24 13:29 Sputum Respiratory Culture - Final
Usual Respiratory Carli
11/13/24 13:29 Sputum Gram Stain - Final
11/09/24 17:52 Blood/Venous Blood Culture - Final
No Growth - Final Report
11/09/24 17:52 Blood/Venous Blood Culture - Final
No Growth - Final Report
11/12/24 15:27 Nose MRSA Screen - Final
No Methicillin Resistant Staphylococcus aureus isolated.
11/13/24 01:59 Urine Streptococcus pneumoniae Antigen (M - Final
Positive for Strep pneumo Ag
[2024-11-16 10:05] LABS: Magnesium 1.7 mg/dl (1.6-2.3)
[2024-11-16 11:19] VITALS: BP 118/79
--- NOTE | 2024-11-16 12:30 | PTCARENOTE ---
Patient's jarvis removed as per infection control dept., and due to void by 6:30 pm. 900cc suresh urine emptied from jarvis bag.
--- NOTE | 2024-11-16 12:45 | CM ---
Patient seen at bedside with .
per nursing states removed simona today, void trial
Called [facility] regarding bed availability - await call back
Will call [facility]
No auth needed
PLAN: Discharge to SNF pending bed availability
--- NOTE | 2024-11-16 13:30 | W.PN.HOSP.TC ---
Today's Communication/Plan
-
Discontinue Stephens catheter
Wean oxygen as able
DC in a.m. to rehab if stable
Assessment / Plan
Assessment / Plan
Assessment/Plan
#Suspected Right Lower Lobe Pneumonia
#History of RLL Pneumonia
#Influenza A
#Acute Hypoxic Respiratory Insufficiency Secondary to the Above
#History of COVID-pneumonia with post-COVID cough
-Patient already finished a 5-day course of Tamiflu within the 1 week prior to arrival
-CT Chest PE study was previously done given patient's persistent tachycardia, and given patient's hypoxia and SOB: no PE, RLL pneumonia confirmed
-Patient hypoxic overnight 11/12-11/13 -- concern for CHF exacerbation/mucus/congestion/underlying asthma/slow recovery from pneumonia
-Labs during this hospitalization had worsening leukocytosis and immature granulocytes -- suspected possible ongoing pneumonia -- did have worsening pneumonia and also possible silent aspiration; no other source of infection
-CXR suggested pneumonitis -- ordered speech evaluation -- VSE done -- diet downgraded to IDDSI 6 per Speech Recommendations
-Now, WBC and numbers are improving overall
-Sputum Cultures insignificant
-Strep pneumo Ag positive
-Blood cultures with no growth to date
-Continue Rocephin and Doxycycline (as per ID recommendations)
-Levalbuterol and Ipratropium QID (no albuterol given tachycardia)
-Mucinex and vest therapy
-In the setting of elevated proBNP, Lasix was started
-Switch Lasix IV 20 mg daily to PO 20 mg daily
-Appreciate pulmonary, ID, cardiology
#Atrial Fibrillation
- Rate controlled
- Continue Xarelto 20mg daily for OAC
-Home Toprol XL 50 mg BID (was previously increased to 100 mg BID, but then decreased again due to wheezing)
- Amiodarone was started this hospitalization but now stopped due to rising AST and ALT -- when LFTs normal consider rechallenge with amiodarone
- Consider adding diltiazem if heart rate increases
- Outpatient electrophysiology consultation
#Elevated AST/ALT
-Possibly from infection/pneumonia/Influenza/recent Tamiflu treatment
-RUQ ultrasound: Cholelithiasis. No secondary findings to suggest acute cholecystitis. No evidence for biliary ductal dilation. Diffuse increased echogenicity of the liver, a nonspecific finding suggesting
fatty infiltration and/or hepatocellular disease. No evidence of a focal hepatic lesion. The spleen, pancreas, and abdominal aorta are unable to be adequately visualized, with shadowing from a large
amount of overlying bowel gas (per radiologist)
-Monitor CMP
-Amiodarone was started this hospitalization but now stopped due to rising AST and ALT
#Heart failure with improved ejection fraction
-Continue GDMT with Toprol XL and entresto (per cardiology, consider stopping Entresto)
-Lasix IV 20 mg daily switched to PO
-New: spironolactone 12.5 mg a day
-New: Farxiga 10 mg daily
#Moderate aortic regurgitation
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
-Continue Entresto
-TTE 11/10/2024 LVEF 50 to 55%, enlarged RV with normal function, mild to moderate mitral regurgitation, mild aortic regurgitation, moderate tricuspid regurgitation with severe pulmonary hypertension, dilated aortic root and ascending aorta
#Severe pulmonary hypertension
-RV enlargement with normal function seen. Monitor over time.
#Essential hypertension
BP under goal
#Anxiety/depression
-Continue paroxetine
Code Status: Full code
DVT Prophylaxis: Xarelto
Anticipated Discharge: Within 24 hours
Subjective/Interval History
-
Date of Service: November 16, 2024
Feeling improved. Currently on 2 L of oxygen. Moist cough noted. Not much phlegm. Denies shortness of breath at rest. No chest pain. No nausea vomiting.
Feeling weak. Stephens catheter still in.
Objective Data
-
Labs:
Laboratory Results
11/16/24
08:58
WBC 12.3 H
Hgb 11.7 L
Hct 35.7 L
Plt Count 431 H
Sodium 134 L
Potassium 3.9
Chloride 94 L
Carbon Dioxide 30
BUN 14
Creatinine 0.6 L
Glucose 109 H
Calcium 8.4
Total Bilirubin 1.3
AST 93 H
ALT 150 H
Alkaline Phosphatase 98
Vital Signs:
Vital Signs
Temp Pulse Resp BP Pulse Ox
98.4 F 87 18 118/79 90
11/16/24 11:19 11/16/24 11:19 11/16/24 11:19 11/16/24 11:19 11/16/24 11:19
I&O
11/15/24 11/16/24 11/17/24
06:59 06:59 06:59
Intake Total 1140 / 1140 1300 / 1300
Output Total 1850 / 1850 1999 / 1999
Balance -710 / -710 -700 / -700
Review of Systems
-
Constitutional: Denies Fever
EENT: Denies Sore Throat
Abdomen/GI: Denies Abdominal Pain
Neuro: Denies Dizzy
Physical Exam
-
General: No Apparent Distress
HEENT: Moist Mucous Membranes
Respiratory: Crackles (few in right base; left clear) and Non Labored Respirations; Negative Wheezes or Accessory Resp Muscle Use
Cardiac: Regular Rhythm and S1/S2
Musculoskeletal: No Edema
Neuro: AO x 3
Psych: Calm; Negative Confused
Data Reviewed
-
Labs: Labs Reviewed by me
--- NOTE | 2024-11-16 14:28 | W.PN.ID1 ---
Date of Service
Date of Service: November 16, 2024
Today's Communication
Continue antibiotics. See below�
Assessment / Plan
Influenza A infection
- s/p 5 day course of Tamiflu
Suspected post influenza pneumonia (pneumococcus urinary antigen positive)
Leukocytosis
A-fib
Hx Prostate CA
HTN
Recommendations:
Patient feeling better today. Leukocytosis continues to improve.
Repeat sputum culture has been obtained, but not revealing.
Continue antibiotics. Transition ceftriaxone to oral cefdinir. Continue doxycycline. Continue through 11/22/24
Continue to follow clinically.
����������������������������������������������������������
Chief Complaint
-: Pneumonia
Subjective / Review of Systems
Patient seen and examined. Overall feels improved today. Denies fever, notes ongoing cough.
Vital Signs / Physical Exam
Vital Signs
Vital Signs
Temp Pulse Resp BP Pulse Ox
98.4 F 87 18 118/79 90
11/16/24 11:19 11/16/24 11:19 11/16/24 11:19 11/16/24 11:19 11/16/24 11:19
Physical Exam
Constitutional: No Acute Distress, Comfortable and Non-toxic
Eyes: Sclera Anicteric
Cardiovascular: S1/S2; Negative S3/S4
Pulmonary: Coarse and Non Labored
Gastrointestinal: Soft, Non Tender and Non Distended
Extremities: Negative Edema or Cyanosis
Neurological: Awake and Alert
Psychological: Calm
Objective Data
Lab Data
Lab Results
11/16/24 08:58
11/16/24 08:58
Estimated Creat Clear > 125 ml/min 11/16/24 08:58
Lactic Acid Cancelled 11/09/24 21:30
Total Bilirubin 1.3 mg/dl (0.2-1.3) 11/16/24 08:58
AST 93 U/L (17-59) H 11/16/24 08:58
ALT 150 U/L (0-50) H 11/16/24 08:58
Alkaline Phosphatase 98 U/L (38-126) 11/16/24 08:58
Most recent labs reviewed.
Micro Results:
11/13/24 13:29 Respiratory Culture - Final
Sputum Usual Respiratory Carli
Gram Stain - Final
11/09/24 17:52 Blood Culture - Final
Blood/Venous No Growth - Final Report
11/09/24 17:52 Blood Culture - Final
Blood/Venous No Growth - Final Report
11/12/24 15:27 MRSA Screen - Final
Nose No Methicillin Resistant Staphylococcus aureus isolated.
11/13/24 01:59 Streptococcus pneumoniae Antigen (M - Final
Urine Positive for Strep pneumo Ag
11/09/24 15:40 Influenza Types A & B ([facility]) - Final
Nasal Swab Influenza A Positive, NAAT
Imaging:
11/13/2024 Abdominal ultrasound: Cholelithiasis, but no findings to suggest acute cholecystitis. No evidence for biliary ductal dilatation. The spleen, pancreas and abdominal aorta are unable to be adequately visualized secondary to overlying bowel
gas. Please see full dictation for additional detail.
11/13/2024 CXR (portable): Increased left lung infiltrate. Parenchymal opacity also noted in the right lower lung. Please see full dictation for additional detail. Film personally viewed.
11/12/2024 CXR (2 view): Right basilar opacification without significant change from prior.
[2024-11-16 15:28] VITALS: BP 125/87
[2024-11-16] MEDS: OMNICEF 300 MG PO (19:32)
[2024-11-16] MEDS: BENADRYL 50 MG PO (21:03)
[2024-11-16] MEDS: MELATONIN 3 MG PO (21:03)
[2024-11-16 23:48] VITALS: BP 142/95
--- NOTE | 2024-11-17 00:33 | PTCARENOTE ---
pt voiding without difficulty since jarvis was removed on dayshift- - ax3- vitals wnl 90% on room air
[2024-11-17 06:00] VITALS: BMI 23.3
[2024-11-17 07:11] VITALS: BP 147/97
[2024-11-17] MEDS: BenGay-Like TOPICAL ×3 (07:15→14:20)
[2024-11-17 07:16] LABS: % Basophils 0.4 % (0-2); % Eosinophils 1.2 % (0-6); % Immature Granulocytes 0.8 % (0-0.5); % Lymphocytes 10.4 % (20.5-51.1); % Monocytes 9.5 % (1.7-9.3); % Neutrophils 77.7 % (42.2-75.2); Absolute Basophils 0.1 10^3/uL (0-0.2); Absolute Eosinophils 0.1 10^3/uL (0-0.7); Absolute Immature Granulocytes 0.1 10^3/uL (0-0.05); Absolute Lymphocytes 1.2 10^3/uL (1.2-3.4); Absolute Monocytes 1.1 10^3/uL (0.1-0.6); Absolute Neutrophils 8.7 10^3/uL (1.4-6.5); Hematocrit 36.8 % (39.0-52.0); Hemoglobin 12.4 g/dL (13.0-18.0); Mean Corp Hgb Conc. 33.7 g/dL (33.0-37.0); Nucleated Red Blood Cells % 0 % (-); Platelet Count 452 10^3/uL (130-400); Red Cell Dist. Width 12.6 % (11.5-14.5); White Blood Cell Count 11.2 10^3/uL (4.8-10.8)
[2024-11-17] MEDS: XOPENEX 0.63 MG INHALANT SOLUTION INH ×2 (07:19→13:50)
[2024-11-17] MEDS: ATROVENT NEBULES 0.5 MG INH ×2 (07:19→13:50)
[2024-11-17] MEDS: MUCINEX 1200 MG PO (07:35)
[2024-11-17] MEDS: XARELTO 20 MG PO (07:35)
[2024-11-17] MEDS: OMNICEF 300 MG PO (07:35)
[2024-11-17] MEDS: VIBRAMYCIN 100 MG PO (07:35)
[2024-11-17] MEDS: THERAGRAN 1 TABLET PO (07:36)
[2024-11-17] MEDS: PAXIL 30 MG PO (07:36)
[2024-11-17] MEDS: FARXIGA 10 MG PO (07:36)
[2024-11-17] MEDS: LASIX 20 MG PO (07:38)
[2024-11-17] MEDS: ENTRESTO 24 MG/26 MG 0.5 TAB PO (07:40)
[2024-11-17] MEDS: TOPROL XL 50 MG PO (07:40)
[2024-11-17] MEDS: ALDACTONE 12.5 MG PO (07:40)
[2024-11-17 07:47] LABS: ALT (SGPT) 134 U/L (0-50); AST (SGOT) 72 U/L (17-59); Alkaline Phosphatase 103 U/L (38-126); Blood Urea Nitrogen 12 mg/dl (9-20); Calcium 8.4 mg/dl (8.4-10.2); Carbon Dioxide 28 mmol/L (22-30); Chloride 96 mmol/L (98-107); Estimated Creatinine Clearance > 125 ml/min; Glucose 102 mg/dl (70-99); Sodium 135 mmol/L (135-145); Total Bilirubin 1.3 mg/dl (0.2-1.3); Total Protein 5.7 g/dl (6.3-8.2); eGFR > 60.00
--- NOTE | 2024-11-17 10:21 | W.PN.HOSP.TC ---
Today's Communication/Plan
-
DC
Assessment / Plan
Assessment / Plan
Assessment/Plan
#Suspected Right Lower Lobe Pneumonia
#History of RLL Pneumonia
#Influenza A
#Acute Hypoxic Respiratory Insufficiency Secondary to the Above
#History of COVID-pneumonia with post-COVID cough
-Patient already finished a 5-day course of Tamiflu within the 1 week prior to arrival
-CT Chest PE study : no PE, RLL pneumonia confirmed
- Now, WBC improving and afebrile
- Off of O2
-Strep pneumo Ag positive
-Blood cultures with no growth to date
-Antibiotics switched to oral cephalosporins and continue per ID
-Change DuoNebs to as needed
-Continue with Mucinex and hold further vest therapy
-Continue with Lasix PO 20 mg daily
-Appreciate pulmonary, ID, cardiology
#Atrial Fibrillation
- Rate controlled
- Continue Xarelto 20mg daily for OAC
- Home Toprol XL 50 mg BID (was previously increased to 100 mg BID, but then decreased again due to wheezing)
- Amiodarone was started this hospitalization but now stopped due to rising AST and ALT -- when LFTs normal consider rechallenge with amiodarone
- Consider adding diltiazem if heart rate increases
- Outpatient electrophysiology consultation
#Elevated AST/ALT
-Possibly from infection/pneumonia/Influenza/recent Tamiflu treatment
-RUQ ultrasound: Cholelithiasis. No secondary findings to suggest acute cholecystitis. No evidence for biliary ductal dilation. Diffuse increased echogenicity of the liver, a nonspecific finding suggesting
fatty infiltration and/or hepatocellular disease. No evidence of a focal hepatic lesion. The spleen, pancreas, and abdominal aorta are unable to be adequately visualized, with shadowing from a large
amount of overlying bowel gas (per radiologist)
-Amiodarone was started this hospitalization but now stopped due to rising AST and ALT
-Improved transaminitis.
#Heart failure with improved ejection fraction
-Continue GDMT with Toprol XL and entresto (per cardiology, consider stopping Entresto)
-Continue with Lasix 20 mg p.o.
-New: spironolactone 12.5 mg a day
-New: Farxiga 10 mg daily
#Moderate aortic regurgitation
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
-Continue Entresto
-TTE 11/10/2024 LVEF 50 to 55%, enlarged RV with normal function, mild to moderate mitral regurgitation, mild aortic regurgitation, moderate tricuspid regurgitation with severe pulmonary hypertension, dilated aortic root and ascending aorta
#Severe pulmonary hypertension
-RV enlargement with normal function seen. Monitor over time.
#Essential hypertension
BP under goal
#Anxiety/depression
-Continue paroxetine
Code Status: Full code
DVT Prophylaxis: Xarelto
Medically stable for discharge to rehab
Discussed with patient about the diagnosis, treatments and follow-up plan. Discussed about the medication changes.
More than 30 minutes spent in discharge including
Final examination of the patient
Summarizing hospital stay
Instructions for continuing care to all relevant caregivers
Preparation of discharge records, prescriptions, and referral forms
Total time spent (in minutes): 35
Anticipated Discharge: Today
Subjective/Interval History
-
Date of Service: November 17, 2024
Feeling improved with regards to breathing. He is off of oxygen today.
Still cough with scanty thick phlegm.
No fever chills.
No nausea vomiting or diarrhea.
Objective Data
-
Labs:
Laboratory Results
11/17/24
05:49
WBC 11.2 H
Hgb 12.4 L
Hct 36.8 L
Plt Count 452 H
Sodium 135
Potassium 4.0
Chloride 96 L
Carbon Dioxide 28
BUN 12
Creatinine 0.6 L
Glucose 102 H
Calcium 8.4
Total Bilirubin 1.3
AST 72 H
ALT 134 H
Alkaline Phosphatase 103
Vital Signs:
Vital Signs
Temp Pulse Resp BP Pulse Ox
98.3 F 81 14 147/97 93
11/17/24 07:11 11/17/24 07:40 11/17/24 07:22 11/17/24 07:40 11/17/24 08:00
I&O
11/16/24 11/17/24 11/18/24
06:59 06:59 06:59
Intake Total 1300 / 1300 900 / 900
Output Total 2000 / 2000 900 / 900
Balance -700 / -700 0 / 0
Review of Systems
-
Constitutional: Denies Fever
EENT: Denies Sore Throat
Abdomen/GI: Denies Abdominal Pain
Neuro: Denies Dizzy
Physical Exam
-
General: No Apparent Distress
HEENT: Moist Mucous Membranes
Respiratory: Crackles (few in right base) and Non Labored Respirations; Negative Wheezes or Accessory Resp Muscle Use
Cardiac: Regular Rhythm and S1/S2; Negative Tachycardic
GI: Soft and Nontender
Musculoskeletal: No Edema
Neuro: AO x 3
Data Reviewed
-
Labs: Labs Reviewed by me
--- NOTE | 2024-11-17 10:39 | W.PN.PUL.V3 ---
Today's Communication / Plan
-
Wean oxygen
Check rest and exercise oximetry.
Finite course of antibiotics..
Stable for transfer to rehabilitation.
Pulmonary will sign off
Assessment
-
Patient is a 74 year old male with past medical history of paroxysmal atrial fibrillation, chronic heart failure, hypertension, prostate cancer, chronic bronchitis presenting to ER with cough, fatigue, chest congestion and shortness of breath.
Was diagnosed with Influenza A at [facility] and given Tamiflu for 5-days, which he completed. He had initially improved but notes worsening complaints following completion of treatment. On arrival, he is Flu A positive again, CXR not showing
appreciable findings on admission 11/09/24. Planning for d/c but developed worsening SOB, wheezing today 11/12/24. Repeat CXR showing new L sided infiltrate. proBNP now 7880.
Denies prior known history of lung disease, managed by the [facility]. He notes in the past he had a diagnosis of chronic bronchitis. Prior to this no baseline respiratory complaints.
Nonsmoker, denies exposure history. Not on O2 at home.
Subacute influenza infection, completed tamiflu as OP
Acute HFpEF, probNP 7880
Afib w/ RVR
Severe PH on ECHO
SOB/wheezing
Leukocytosis
Abnormal CXR, L sided infiltrate
Strep Ag positive, likely secondary strep PNA infection
Conditions present [employer]
Chronic bronchitis, not maintained on OP inhalers
Dilatation of thoracic aorta
Mitral regurgitation
Hypertension
LV dysfunction
Atrial fibrillation on Xarelto
Anxiety/depression
Plan
Respiratory status continues to slowly improve
Continue supplemental oxygen-currently on 1 L - 97% saturation
Eventual home supplemental oxygen needs -Chek rest and exercise. Room air oximetry
Nebulizers-Xopenex and ipratropium bromide 3 times daily
Mucolytic's-Mucinex 1200 mg twice daily continues
Incentive spirometry and flutter continues
Vest therapy continues-patient feels helping-continue while hospitalized
Chest x-ray 11/13/2024-left lung pneumonia increased, right lower lobe pneumonia stable.
Follow-up chest x-rays an outpatient
Cultures reviewed
Urine strep antigen positive
MRSA screen negative
Blood cultures negative
Influenza A+
Sputum culture 11/13/2024-moderate WBCs and mixed bacteria
Empiric antibiotics ceftriaxone and doxycycline
Infectious disease following-correspondence reviewed
Follow chest x-ray
Leukocytosis continues to improve
Diuresis as tolerated
Monitor renal function, electrolytes, intake/output, lower extremity edema and weight
Replace electrolytes as needed
Monitor rhythm
Metoprolol and amiodarone continue-Amio held 11/15/2024 due to rising LFTs
Echocardiogram reviewed 11/10/2024-EF 55%, moderate mitral regurgitation, severe pulm hypertension-PA systolic 65
Cardiology following-correspondence reviewed
Electrophysiology consultation-outpatient. Eventual CT chest and consideration towards ablation in the next 3-4 weeks
Monitor LFTs
Abdominal ultrasound 11/13/2024-cholelithiasis, no evidence for biliary duct dilation, fatty liver
Will need outpatient pulmonary evaluation in our office including PFTs and 6MW
Risk factors assessed for underlying sleep disordered breathing also noted
Recommend outpatient sleep evaluation/PSG testing as indicated.
Patient significant improvement-pulmonary. We'll sign off-. Please call with questions.
Patient to be discharged to rehabilitation soon
Dr. Alcantar reviewed with son and were at bedside on 11/14/2024 and with the on 11/15/2024 and 11/16/2024 and 11/17/24
Diagnostic Data
CXR 11/12/24- Right basilar opacification suspicious for pneumonia without significant change. Left chest opacification, at least in part groundglass, increased, could represent pneumonitis.
11/09/24- Cardiomegaly. Right basilar opacification which could represent pneumonia
CT CHEST 11/10/24- 1). There is no pulmonary embolism
2).There is interstitial and confluent alveolar airspace disease in the right lower lobe consistent with pneumonia
3). There is less prominent interstitial airway disease in the left lower lobe, lingula, posterior left upper lobe and lung apices which is more likely scarring than pneumonia of the latter is not excluded
ECHO 11/10/24- Normal biventricular size and systolic function without regional wall motion abnormality. Left ventricular ejection fraction is 50-55% by volumetric assessment - but difficult to assess due to rapid atrial fibrillation. Enlarged
right ventricular size with normal function. Mild to moderate mitral regurgitation. Mild aortic regurgitation. Moderate tricuspid regurgitation with severe pulmonary hypertension. Dilated aortic root and ascending aorta (SOV 4.3 cm, ascending 4.3
cm) Compared to the prior study on 03/25/2024, right ventricle is now mildly enlarged. Pulmonary hypertension is now seen. Remaining findings are similar.
Subjective Data
-
Date of Service:
Date of Service: November 17, 2024
Chief Complaint: Pulmonary Follow Up and Dyspnea Follow Up
Subjective:
Feels better, has children breath, oxygen, wheezing, increased sputum production, no chest pain or abdominal pain
Review of Systems
General: Other ( per HPI)
Objective Data
Data Reviewed
Vital Signs / I&O:
Vital Signs
Temp Pulse Resp BP Pulse Ox
98.3 F 81 14 147/97 93
11/17/24 07:11 11/17/24 07:40 11/17/24 07:22 11/17/24 07:40 11/17/24 08:00
Intake and Output
11/16/24 11/17/24 11/18/24
06:59 06:59 06:59
Intake Total 1300 / 1300 900 / 900
Output Total 2000 / 2000 900 / 900
Balance -700 / -700 0 / 0
SaO2: 93
Nasal Cannula flow liters per minute: 2
Physical Exam
General: Respiratory Distress (n), Comfortable and Other (NAD)
HEENT: Normocephalic, Anicteric and Moist Mucous Membranes
Cardiovascular: Irregular Rhythm
Respiratory: Crackles and Non-Labored Respirations
GI: Soft, Non Distended and Non Tender
Neurology: Awake, Alert and No Motor Deficits
Skin: Warm, Good Color, Cyanosis (n) and Jaundice (n)
Labs/Micro/Reports
Lab Data
11/17/24 05:49
11/17/24 05:49
Microbiology
11/13/24 13:29 Sputum Respiratory Culture - Final
Usual Respiratory Carli
11/13/24 13:29 Sputum Gram Stain - Final
11/09/24 17:52 Blood/Venous Blood Culture - Final
No Growth - Final Report
11/09/24 17:52 Blood/Venous Blood Culture - Final
No Growth - Final Report
11/12/24 15:27 Nose MRSA Screen - Final
No Methicillin Resistant Staphylococcus aureus isolated.
--- NOTE | 2024-11-17 12:17 | CM ---
Patient seen at bedside.
per hospitalist patient stable for discharge
Renae at [facility] states has a bed available today - patient/ agreeable. No auth needed
Discussed wheelchair van cost with patient/ - agreeable
PLAN: [facility]
Report #: [phone]
Renae requested enter d/c instructions via [facility] as they are having issues with their fax
wheelchair van transport
--- NOTE | 2024-11-17 12:46 | W.PN.UPDATE ---
Update Note
Progress Note Update
Met with patient and regarding options for his persistent atrial fibrillation. Prior 2 CV. First in 2021-he felt better for about 9-10 months. No better after 2023 although was not by his report successful. Here after successive
hospitalizations for flu A and respiratory disease. Improving. Off precautions. Has normal EF% with severe pulmonary HTN and moderate TR.
Physical examination performed
HEENT NCAT
still coughing
Cor irreg irreg
diffuse end exp wheeze/rhonchi
abd soft nt nd
no ext edema
tele reviewed
We discussed options of medical rate control, pacer/AVJ, AAD therapy (LFT elevation on amiodarone) and PVI in detail. We also discussed possibility of O2 desaturation post transseptal but typically risk is low and usually tolerated.
Also discussed a 1:1000 risk of IL/Stroke/ and a 2% risk of vascular or cardiac complication including prolonged desaturation.
Would plan CT scan and let him recover from his acute illness and consider PVI in 3-4 weeks.
Full EP consultation/discussion performed.
[2024-11-17 15:07] VITALS: BP 134/86
--- NOTE | 2024-11-17 15:55 | W.PN.ID1 ---
Date of Service
Date of Service: November 17, 2024
Today's Communication
Continue current course of antibiotics.
Assessment / Plan
Influenza A infection
- s/p 5 day course of Tamiflu
Suspected post influenza pneumonia (pneumococcus urinary antigen positive)
Leukocytosis
A-fib
Hx Prostate CA
HTN
Recommendations:
Patient feeling better today. Leukocytosis continues to improve.
Repeat sputum culture has been obtained, but not revealing.
Continue cefdinir / doxycycline through 11/22/24
����������������������������������������������������������
Chief Complaint
-: Pneumonia
Subjective / Review of Systems
Review of Systems: No Fever, No Chills, Cough and No Sputum Production
Vital Signs / Physical Exam
Vital Signs
Vital Signs
Temp Pulse Resp BP Pulse Ox
98.2 F 90 18 134/86 98
11/17/24 15:07 11/17/24 15:07 11/17/24 15:07 11/17/24 15:07 11/17/24 15:07
Physical Exam
Constitutional: No Acute Distress, Comfortable and Non-toxic
Eyes: Sclera Anicteric
Cardiovascular: Regular Rate and S1/S2; Negative S3/S4
Pulmonary: Coarse and Non Labored
Gastrointestinal: Soft, Non Tender and Non Distended
Extremities: Negative Edema or Cyanosis
Neurological: Awake and Alert
Psychological: Calm
Objective Data
Lab Data
Lab Results
11/17/24 05:49
11/17/24 05:49
Estimated Creat Clear > 125 ml/min 11/17/24 05:49
Lactic Acid Cancelled 11/09/24 21:30
Total Bilirubin 1.3 mg/dl (0.2-1.3) 11/17/24 05:49
AST 72 U/L (17-59) H 11/17/24 05:49
ALT 134 U/L (0-50) H 11/17/24 05:49
Alkaline Phosphatase 103 U/L (38-126) 11/17/24 05:49
Most recent labs reviewed.
Micro Results:
11/13/24 13:29 Respiratory Culture - Final
Sputum Usual Respiratory Carli
Gram Stain - Final
11/09/24 17:52 Blood Culture - Final
Blood/Venous No Growth - Final Report
11/09/24 17:52 Blood Culture - Final
Blood/Venous No Growth - Final Report
11/12/24 15:27 MRSA Screen - Final
Nose No Methicillin Resistant Staphylococcus aureus isolated.
11/13/24 01:59 Streptococcus pneumoniae Antigen (M - Final
Urine Positive for Strep pneumo Ag
11/09/24 15:40 Influenza Types A & B ([facility]) - Final
Nasal Swab Influenza A Positive, NAAT
Imaging:
11/13/2024 Abdominal ultrasound: Cholelithiasis, but no findings to suggest acute cholecystitis. No evidence for biliary ductal dilatation. The spleen, pancreas and abdominal aorta are unable to be adequately visualized secondary to overlying bowel
gas. Please see full dictation for additional detail.
11/13/2024 CXR (portable): Increased left lung infiltrate. Parenchymal opacity also noted in the right lower lung. Please see full dictation for additional detail. Film personally viewed.
11/12/2024 CXR (2 view): Right basilar opacification without significant change from prior.
Care Review
Plan reviewed with: Physician (Hospitalist)
--- NOTE | 2024-11-17 17:30 | W.DCSUMMARY ---
Discharge Summary
Discharge Data
Date of Admission: 11/09/24
Date of Discharge: 11/17/24
-
Pending Results: No
Hospital Course
Primary diagnosis:
Right lower lobe pneumonia
Influenza A infection
Acute hypoxic respiratory insufficiency
History of COVID-pneumonia
Abnormal transaminitis
Secondary diagnosis:
Permanent atrial fibrillation
Heart failure with improved ejection fraction
Essential hypertension
Hospital course:
Patient with history of influenza A infection having had finished Tamiflu before admission presented with post influenza pneumonia. Streptococcus pneumonia antigen was positive. Blood cultures were negative. He had a chest CT which showed no
evidence of PE but right lower lobe pneumonia. Was seen by ID and pulmonary. Was put on IV ceftriaxone and doxycycline - switched to oral cephalosporins on dc ;antibiotics to be continued till 11/22/2024 on discharge.
Prior to discharge he was able to come off of his oxygen completely.
His A-fib was rate controlled. He was maintained on Xarelto and home dose of Toprol-XL. Amiodarone was started on this admission initially for rate control but that was stopped due to rising AST ALT. Plan from cardiology was to add diltiazem of
the heart rate for her to be an issue. Follow outpatient EP.
Regarding heart failure his EF is improved to 50-55% on this admission ECHO. His volume was optimal. He was mainted on Lasix 20 mg a day, spironolactone, metoprolol, dapagliflozin and low-dose Entresto on discharge.
Transaminitis improved unclear if its because of infection or amiodarone. If amiodarone is needed for additional rate control in future possibly could rechallenge if LFTs normalize. However cardiology felt ablative strategy may be preferable. He
will follow-up with EP as an outpatient.
Once medically stable he was seen by PT who recommended rehab and he was discharged to rehab.
Consultants on board:
Infectious disease-Mayur Rice
Cardiology-Giovani Robison
Pulmonary-Tin Vizcaino
Discharge Plan
-
Patient Disposition: [facility]NF
Discharge Diagnosis/Procedures: Influenza A infection with post influenza pneumonia; history of atrial fibrillation
Diet: Other diet
Additional Diets: IDDSI 6-soft and bite-size diet
Activity: As tolerated
Driving Restrictions: Not until seen by your Dr
Bathing Restrictions: None
Blood Work: CMP blood work in 1 week
Other Services: PT, OT and ST
Specialty Instructions: Weigh Daily- Call MD for wt gain/loss 3 lbs overnight/5 lbs in 1 week
Instructions: *[facility] Heart Failure Instructions
Referrals:
Delores Cotto, [Active] - in two to three weeks
(Pneumonia, shortness of breath, possible CAITIE
Needs PFTs, 6-minute walk test and sleep study)
Charlie Valdez MD [Active] - 12/03/24 3:40 pm (You have cardiology follow-up with [facility]ur[facility] T[facility]AD[facility]/Dr. Valdez on December 03, 2024 in [place] [facility] which is located behind the hospital. If you are unable to make this appointment
please call [phone] to reschedule)
Pauline James MD [Family Provider] -
Prescriptions:
New
spironolactone 25 mg Tablet
12.5 mg PO DAILY Qty: 1 0RF
dapagliflozin propanediol 10 mg Tablet
10 mg PO DAILY Qty: 1 0RF
furosemide 20 mg Tablet
20 mg PO DAILY Qty: 1 0RF
guaifenesin 600 mg Tablet Extended Release 12hr
1,200 mg PO Q12 Qty: 1 0RF
Rx Instructions:
For a week or so
cefdinir 300 mg Capsule
300 mg PO Q12 Qty: 1 0RF
Rx Instructions:
till 11/22
doxycycline hyclate 100 mg Capsule
100 mg PO Q12 Qty: 1 0RF
Rx Instructions:
till 11/22
levalbuterol HCl 0.63 mg/3 mL Solution For Nebulization
0.63 mg inhalation R Q6HPRN PRN (Reason: WHEEZING) Qty: 1 0RF
Continued
therapeutic multivitamin Tablet
1 tab PO DAILY
acetaminophen 500 mg Capsule
1,000 mg PO Q4HPRN PRN (Reason: mild pain)
omega 9-yhz-qpb-fish oil [Fish Oil] 1,000 mg (120 mg-180 mg) Capsule
1 cap PO DAILY
Xarelto 20 mg Tablet
20 mg PO DAILY
sacubitril-valsartan [Entresto] 24-26 mg Tablet
0.5 tab PO BID
trazodone 50 mg Tablet
25 mg PO HSPRN PRN (Reason: sleep)
paroxetine HCl 30 mg Tablet
30 mg PO BID
albuterol sulfate 2.5 mg /3 mL (0.083 %) solution for nebulization
2.5 mg inhalation Q4HPRN PRN (Reason: shortness of breath or wheezing)
metoprolol succinate 50 mg tablet extended release 24 hr
50 mg PO BID
Discharge Orders:
Discharge Patient (As Directed); Ordered 11/17/24
Ordered By: Wilton Vann
Discharge Date and Time
Discharge Date/Time: 11/17/24 16:51
Print Language: SPANISH
== END 2024-11-17 16:51 | DRG 871 ==
LOC: 2 NORTH 18:54
PROVIDERS: Internal Medicine Cardiovascular Disease; Nurse Practitioner Family; Physician Assistant; ADMITTING PHYSICIAN Hospitalist; ATTENDING PHYSICIAN Internal Medicine; CONSULT PHYSICIAN Internal Medicine; CONSULT PHYSICIAN Internal Medicine Infectious Disease; EMERGENCY PHYSICIAN Emergency Medicine; FAMILY PHYSICIAN Internal Medicine; OTHER PHYSICIAN Internal Medicine Cardiovascular Disease
DX: A41.89 Other specified sepsis (principal); I50.31 Acute diastolic (congestive) heart failure; J10.08 Influenza due to other identified influenza virus with other specified pneumonia; J13 Pneumonia due to Streptococcus pneumoniae; I48.21 Permanent atrial fibrillation; I11.0 Hypertensive heart disease with heart failure; E87.6 Hypokalemia; R09.02 Hypoxemia; R74.01 Elevation of levels of liver transaminase levels; I08.3 Combined rheumatic disorders of mitral, aortic and tricuspid valves; I27.20 Pulmonary hypertension, unspecified; J42 Unspecified chronic bronchitis; R06.89 Other abnormalities of breathing; F43.10 Post-traumatic stress disorder, unspecified; F12.90 Cannabis use, unspecified, uncomplicated; F10.11 Alcohol abuse, in remission; I77.810 Thoracic aortic ectasia; I49.3 Ventricular premature depolarization; F41.9 Anxiety disorder, unspecified; F32.A Depression, unspecified; Z87.01 Personal history of pneumonia (recurrent); Z86.16 Personal history of COVID-19; Z79.01 Long term (current) use of anticoagulants; Z87.891 Personal history of nicotine dependence; Z85.46 Personal history of malignant neoplasm of prostate; Z11.52 Encounter for screening for COVID-19
CPT/HCPCS: 36600; 71045; 71046; 71275; 74230; 75572; 76700; 80048; 80053; 82805; 83605; 83735; 83880; 84145; 84443; 84484; 85025; 85027; 87040; 87070; 87205; 87502; 87811; 87899; 92526; 92610; 92611; 93005; 93306; 94640; 94669; 96365; 96366; 97162; 97166; 97530; 97535; 99285; Q9967

== ENCOUNTER → 2024-11-20 10:37 | Outpatient (REF) | payer OTHER, MEDICARE, SELFPAY ==
[2024-11-20 11:31] LABS: % Basophils 0.3 % (0-2); % Eosinophils 0.2 % (0-6); % Immature Granulocytes 0.6 % (0-0.5); % Lymphocytes 5.2 % (20.5-51.1); % Monocytes 6.8 % (1.7-9.3); % Neutrophils 86.9 % (42.2-75.2); Absolute Basophils 0.1 10^3/uL (0-0.2); Absolute Immature Granulocytes 0.1 10^3/uL (0-0.05); Absolute Lymphocytes 0.9 10^3/uL (1.2-3.4); Absolute Monocytes 1.2 10^3/uL (0.1-0.6); Absolute Neutrophils 15.3 10^3/uL (1.4-6.5); Hematocrit 40.6 % (39.0-52.0); Hemoglobin 12.9 g/dL (13.0-18.0); Mean Corp Hgb Conc. 31.8 g/dL (33.0-37.0); Mean Corpuscular Hgb 30.9 pg (27.0-31.0); Mean Corpuscular Volume 97.1 fL (80.0-94.0); Mean Platelet Volume 10.1 fL (7.4-10.4); Nucleated Red Blood Cells % 0 % (-); Platelet Count 548 10^3/uL (130-400); Red Blood Cell Count 4.18 10^6/uL (4.70-6.10); Red Cell Dist. Width 13.4 % (11.5-14.5); White Blood Cell Count 17.6 10^3/uL (4.8-10.8)
[2024-11-20 11:44] LABS: Blood Urea Nitrogen 14 mg/dl (9-20); Calcium 8.6 mg/dl (8.4-10.2); Carbon Dioxide 28 mmol/L (22-30); Chloride 96 mmol/L (98-107); Glucose 110 mg/dl (70-99); Potassium 4.3 mmol/L (3.5-5.1); Sodium 136 mmol/L (135-145); eGFR > 60.00
== END ==
LOC: OLABP 10:37
PROVIDERS: ATTENDING PHYSICIAN Family Medicine
DX: J10.1 Influenza due to other identified influenza virus with other respiratory manifestations (principal); I10 Essential (primary) hypertension; E87.6 Hypokalemia; A41.9 Sepsis, unspecified organism; J18.9 Pneumonia, unspecified organism; I50.9 Heart failure, unspecified; F41.9 Anxiety disorder, unspecified; F32.0 Major depressive disorder, single episode, mild; I27.20 Pulmonary hypertension, unspecified; J42 Unspecified chronic bronchitis; Z85.46 Personal history of malignant neoplasm of prostate
CPT/HCPCS: 36415; 80048; 85025

== ENCOUNTER → 2024-11-23 11:24 | Outpatient (REF) | payer OTHER, MEDICARE, SELFPAY ==
[2024-11-23 12:17] LABS: % Basophils 0.5 % (0-2); % Eosinophils 0.9 % (0-6); % Immature Granulocytes 0.5 % (0-0.5); % Lymphocytes 10.9 % (20.5-51.1); % Monocytes 11.4 % (1.7-9.3); % Neutrophils 75.8 % (42.2-75.2); Absolute Basophils 0.1 10^3/uL (0-0.2); Absolute Eosinophils 0.1 10^3/uL (0-0.7); Absolute Immature Granulocytes 0.1 10^3/uL (0-0.05); Absolute Lymphocytes 1.1 10^3/uL (1.2-3.4); Absolute Monocytes 1.2 10^3/uL (0.1-0.6); Absolute Neutrophils 7.7 10^3/uL (1.4-6.5); Hematocrit 37.6 % (39.0-52.0); Hemoglobin 12.4 g/dL (13.0-18.0); Mean Corpuscular Hgb 31.4 pg (27.0-31.0); Mean Corpuscular Volume 95.2 fL (80.0-94.0); Mean Platelet Volume 10.3 fL (7.4-10.4); Nucleated Red Blood Cells % 0 % (-); Platelet Count 439 10^3/uL (130-400); Red Blood Cell Count 3.95 10^6/uL (4.70-6.10); Red Cell Dist. Width 13.5 % (11.5-14.5); White Blood Cell Count 10.1 10^3/uL (4.8-10.8)
== END ==
LOC: OLABP 11:24
PROVIDERS: ATTENDING PHYSICIAN Family Medicine
DX: I10 Essential (primary) hypertension (principal); E87.6 Hypokalemia; A41.9 Sepsis, unspecified organism; J18.9 Pneumonia, unspecified organism; I50.9 Heart failure, unspecified; F41.9 Anxiety disorder, unspecified; F32.0 Major depressive disorder, single episode, mild
CPT/HCPCS: 36415; 85025

== ENCOUNTER → 2025-01-25 09:51 | Outpatient (REF) | payer MEDICARE, OTHER, SELFPAY | LOC: RST 09:51 | PROVIDERS: ATTENDING PHYSICIAN Internal Medicine Gastroenterology; FAMILY PHYSICIAN Internal Medicine | DX: R13.12 Dysphagia, oropharyngeal phase (principal) | CPT/HCPCS: 74221; 74230; 92611 ==

== ENCOUNTER → 2025-02-16 11:03 | Outpatient (REF) | payer MEDICARE, OTHER, SELFPAY ==
[2025-02-16 12:16] LABS: % Eosinophils 4.1 % (0-6); % Immature Granulocytes 0.2 % (0-0.5); % Lymphocytes 21.1 % (20.5-51.1); % Monocytes 10.4 % (1.7-9.3); % Neutrophils 63.2 % (42.2-75.2); Absolute Basophils 0.1 10^3/uL (0-0.2); Absolute Eosinophils 0.2 10^3/uL (0-0.7); Absolute Lymphocytes 1.2 10^3/uL (1.2-3.4); Absolute Monocytes 0.6 10^3/uL (0.1-0.6); Absolute Neutrophils 3.7 10^3/uL (1.4-6.5); Hematocrit 49.4 % (39.0-52.0); Hemoglobin 16.2 g/dL (13.0-18.0); Mean Corp Hgb Conc. 32.8 g/dL (33.0-37.0); Mean Corpuscular Hgb 31.4 pg (27.0-31.0); Mean Corpuscular Volume 95.7 fL (80.0-94.0); Nucleated Red Blood Cells % 0 % (-); Platelet Count 255 10^3/uL (130-400); Red Blood Cell Count 5.16 10^6/uL (4.70-6.10); Red Cell Dist. Width 13.3 % (11.5-14.5); White Blood Cell Count 5.9 10^3/uL (4.8-10.8)
[2025-02-16 12:26] LABS: INR 1.15; PT 15.3 Sec (11.4-14.6)
[2025-02-16 13:20] LABS: ALT (SGPT) 26 U/L (0-50); AST (SGOT) 28 U/L (17-59); Alkaline Phosphatase 58 U/L (38-126); Blood Urea Nitrogen 16 mg/dl (9-20); Calcium 9.9 mg/dl (8.4-10.2); Carbon Dioxide 28 mmol/L (22-30); Chloride 107 mmol/L (98-107); Glucose 97 mg/dl (70-99); Magnesium 2.2 mg/dl (1.6-2.3); Potassium 5.3 mmol/L (3.5-5.1); Sodium 144 mmol/L (135-145); Total Bilirubin 1.1 mg/dl (0.2-1.3); Total Protein 7.7 g/dl (6.3-8.2); eGFR > 60.00
== END ==
LOC: SDSPAT 11:03
PROVIDERS: ATTENDING PHYSICIAN Internal Medicine Cardiovascular Disease; FAMILY PHYSICIAN Internal Medicine; OTHER PHYSICIAN Internal Medicine Cardiovascular Disease
DX: I48.91 Unspecified atrial fibrillation (principal)
CPT/HCPCS: 36415; 80053; 83735; 85025; 85610; 86850; 86900; 86901; 93005

== ENCOUNTER 2025-03-02 08:22 | Day surgery (SDC) | payer MEDICARE, OTHER, SELFPAY ==
--- NOTE | 2025-02-17 13:09 | HPS.HSE ---
Family Physician
-
Family Physician: INTERVIEWE UNKNOWN - PT NOT
Chief Complaint
-
Permanent atrial fibrillation.
History of Present Illness
The patient is a 74-year-old male presenting today for permanent atrial fibrillation. The patient reports a history of progressively worsening dyspnea on exertion and weakness secondary to this diagnosis. He previously underwent two
cardioversions, with the last occurring in October 2023, for his arrhythmia. He does have associated heart failure with a recovered ejection fraction. He is on current pharmacological therapy with Metoprolol Succinate. His dosing had to be
downtitrated previously due to wheezing and worsening of his depression. He was also started on Amiodarone for rhythm control but developed elevated transaminases. Because of this, the medication was ultimately stopped. He is on current
pharmacological therapy with Xarelto. He notes that his symptoms associated with his arrhythmia greatly interfere with his activities of daily living and overall impact his quality of life. He is interested in pursuing with pulmonary vein isolation
for further arrhythmia management. Prior to his ablation, he will proceed first with a transesophageal echocardiogram to officially rule out a left atrial appendage thrombus. He denies any current complaints today such as chest pain, shortness of
breath at rest, nausea, vomiting, diarrhea, lightheadedness, dizziness, cough, sore throat, or fever.
Medical History
Past Medical History
Past Medical History: Reports Other
Additional Past Medical History:
1. Permanent atrial fibrillation, pharmacological therapy with Metoprolol Succinate and oral anticoagulation with Xarelto.
2. Nonsustained ventricular tachycardia.
3. Hypertension.
4. Congestive heart failure, improved ejection fraction.
5. Dilation of thoracic aorta.
6. Severe pulmonary hypertension.
7. Mild to moderate valvular disease.
8. Chronic bronchitis.
9. Influenza-associated pneumonia, 11/09/2024, with acute respiratory failure.
10. COVID-19 pneumonia 08/2023.
11. Obstructive sleep apnea, inconsistent with CPAP.
12. GERD.
13. Dysphagia with aspiration precautions.
14. Colon polyps.
15. History of diverticulitis.
16. Cholelithiasis, asymptomatic.
17. Remote migraines.
18. Lumbar degenerative disc disease with stenosis.
19. Scoliosis.
20. Osteoarthritis, status post right total hip arthroplasty.
21. Prostate cancer, 2000, status post robotic prostatectomy and radiation.
22. PTSD.
23. Depression.
24. Anxiety.
25. Insomnia.
26. Mild hyperkalemia.
Past Surgical History: Reports Other
Additional Past Surgical History:
1. Cardioversion x2.
2. Right inguinal hernia repair.
3. Right total hip replacement.
4. Left knee arthroscopy.
5. Radical prostatectomy.
6. Mass excision from back (benign).
7. Dental extractions.
8. Dental implants.
9. Multiple colonoscopies.
Social History
Tobacco: Non-smoker
Alcohol: None
Personal:
Living: Other (The patient lives in a three-story home with his .)
Family History
Family History: Not pertinent
Allergies / Home Medications
Allergy/Medication List:
Home medications:
1. Acetaminophen 1000 mg p.o. every 6 hours as needed.
2. Albuterol sulfate 2.5 mg inhaled every 4 hours as needed.
3. Jardiance 25 mg p.o. at noon.
4. Entresto 24-26 mg p.o. daily as needed for systolic blood pressure readings >115.
5. Furosemide 20 mg p.o. daily.
6. Levalbuterol 0.63 mg inhaled every 6 hours as needed.
7. Metoprolol Succinate 50 mg p.o. twice a day.
8. [place] 3/fish oil 1 capsule p.o. daily.
9. Paroxetine 30 mg p.o. twice a day.
10. Spironolactone 25 mg p.o. daily.
11. Multivitamin 1 tablet p.o. daily.
12. Trazodone 25 mg p.o. at bedtime as needed.
13. Xarelto 20 mg p.o. daily.
Allergies: No known allergies.
Review of Systems
-
A 12 point ROS was completed and negative except as noted: Yes
Physical Exam
Vital Signs
Blood pressure 147/79, heart rate 57, respirations 18, pulse ox 98% on room air.
Height 6 feet 7 inches, weight 92 kg, BMI 22.8.
Physical Exam
General: Well Developed, Well Nourished and No Apparent Distress
HEENT: NormoCephalic, Moist mucous membranes, Atraumatic and PERRLA
Respiratory: Clear
Cardiac: Irregular Rhythm
GI: Soft, Non Tender and Non Distended
Musculoskeletal: No Edema and Normal Gait & Station
Skin: Warm and Dry
Neuro: AO x 3 and Nonfocal/grossly intact
Laboratory Results
-
DIAGNOSTIC STUDIES OF 02/16/2025: White blood cell count 5.9. Hemoglobin 16.2. Platelet count 255,000. PT 15.3. INR 1.15. Sodium 144. Potassium 5.3. BUN 16. Creatinine 0.9. Glucose 97. Calcium 9.9. Magnesium 2.2. AST 28. ALT 26. Albumin 5.0.
Blood type B negative.
EKG, 02/16/2025: Atrial fibrillation with slow ventricular response. Left axis deviation. Nonspecific ST and T-wave abnormality.
Echocardiogram 11/10/2024: Left ventricular ejection fraction is 50-55%, but difficult to assess due to rapid atrial fibrillation. Large right ventricular size and normal function. Mild to moderate mitral regurgitation. Mild aortic regurgitation.
Moderate tricuspid regurgitation with severe pulmonary hypertension. Dilated aortic root and ascending aorta.
Impression/Plan
-
IMPRESSION/PLAN:
1. Permanent atrial fibrillation: The patient is in need of pulmonary vein isolation with Dr. Charlie Valdez on 03/03/2025. Prior to undergoing this, he will proceed with a transesophageal echocardiogram on 03/02/[address] Gustavo Moon to officially
rule out a left atrial appendage thrombus. The benefits and risks of the procedure have been explained to the patient. The patient understands these risks and wishes to proceed. He is aware to continue with Eliquis uninterrupted pre-operatively.
== END 2025-03-02 10:45 | disposition home or self-care (01) ==
LOC: CATH 08:22
PROVIDERS: ATTENDING PHYSICIAN Nuclear Medicine Nuclear Cardiology; FAMILY PHYSICIAN Internal Medicine; OTHER PHYSICIAN Internal Medicine Cardiovascular Disease
DX: I48.21 Permanent atrial fibrillation (principal); I08.3 Combined rheumatic disorders of mitral, aortic and tricuspid valves; I08.8 Other rheumatic multiple valve diseases; I70.0 Atherosclerosis of aorta; F32.A Depression, unspecified; F41.9 Anxiety disorder, unspecified; F43.10 Post-traumatic stress disorder, unspecified; G47.00 Insomnia, unspecified; G47.33 Obstructive sleep apnea (adult) (pediatric); I11.0 Hypertensive heart disease with heart failure; I27.20 Pulmonary hypertension, unspecified; I50.9 Heart failure, unspecified; M19.90 Unspecified osteoarthritis, unspecified site; M41.9 Scoliosis, unspecified; Z79.01 Long term (current) use of anticoagulants; Z79.899 Other long term (current) drug therapy; Z86.0100 Personal history of colon polyps, unspecified; Z86.16 Personal history of COVID-19; Z90.79 Acquired absence of other genital organ(s)
CPT/HCPCS: 93312; 93320; 93325

== ENCOUNTER 2025-03-03 10:15 | Day surgery (SDC) | payer MEDICARE, OTHER, SELFPAY ==
[2025-02-16 11:30] VITALS: BMI 22.9
[2025-03-03] VITALS (11 sets, daily range): BP systolic 82–109; BP diastolic 56–83; BMI 23.1
[2025-03-03 14:22] LABS: ACT-LR - POC 290 Seconds (116-155)
[2025-03-03 14:48] LABS: ACT-LR - POC 311 Seconds (116-155)
--- NOTE | 2025-03-03 14:59 | ITS.CL.ABL ---
Record Producer - Ablation
Ablation
Procedure Report:
ELECTROPHYSIOLOGY ABLATION STUDY
DATE:: March 03, 2025�����������������������������REFERRING: Dr. Gustavo Moon
INDICATION: Persistent supraventricular tachycardia in the form of atrial fibrillation.
HISTORY: See H and P.��As above
ANTIARRHYTHMIC DRUG: Metoprolol 50 twice daily
PRE-PROCEDURE HUMBERTO: No intracardiac thrombus
PRESENTING RHYTHM: Atrial fibrillation
'TIME-OUT':��called and confirmed.
SEDATION/ANESTHESIA:��provided via the anesthesia department using general anesthesia (LMA).
INTRAVENOUS/ARTERIAL ACCESS:
Right femoral venous - 8Fr
Left femoral venous - 8 Fr, 6 Fr
Ultrasound guidance for bilateral femoral vein access was utilized by me to obtain access with demonstration of normal anatomy
CHADS-VASC Score:
HAS-Bled Score
PROCEDURE:
1.��A decapolar CS catheter was placed within the CS for mapping and pacing.��This was also used as the reference catheter for the 3-D map.
2. The intracardiac ultrasound catheter was positioned in the RA to identify the FO for targeting of transseptal puncture, assist��in identification of the pulmonary vein ostia, monitoring pre and post ablation pulmonary vein flow velocities,
monitoring for 'bubble' formation during RF application as a sign of thermal injury,��and to monitor for pericardial effusion during mapping and ablation procedure.���Left atrial size, LV ejection fraction, and pulmonary vein flows were monitored
pre and post ablation procedure. The other valves were inspected and found to be free of significant regurgitation or stenosis.
3.��Half of the calculated heparin bolus was administered prior to the first transeptal puncture.��Transseptal puncture was performed to diagnose RA and LA pressure so that safety of LA mapping and ablation could be further assessed, and to access
the left atrium and pulmonary veins for mapping and ablation.��This entailed advancing an 8 Fr SL-1 sheath with dilator into the superior vena cava and withdrawing both (monitoring intracardiac ultrasound, fluoroscopy and tip pressure) with the tip
oriented toward the atrial septum.��The fossa ovalis was engaged (indicated by sudden displacement of the sheath tip as well as tenting of the fossa seen on intracardiac ultrasound).��Left atrial access required a pass with the [place] needle
extended.��Left atrial catheter position was confirmed by pressure monitoring (RA mean pressure 4 mm Hg and LA mean presure 6 mm Hg), LA saturation (99%),��as well as fluoroscopy.��The sheath was advanced over the dilator and positioned in the left
atrium.��This procedure was repeated for the Agilis sheath.��The remainder of the calculated heparin bolus was administered and heparin was
infused to maintain ACT at 300 -350 seconds throughout the case.
4.��RA pacing was performed via the proximal decapolar poles and LA pacing was performed via the distal decapolr poles.
5. A quadrapolar catheter was first positioned at the His position for His Bundle recording which was tagged via the 3-D Navex sytem, and then passed to the RVA for RV pacing and recording.
6. The Penta splint catheter and grid catheter placed in each of the LIPV, LSPV, RSPV and the RIPV.��
7.��Next, a 3-D map was created using Navex.���A 3-D reconstructed CT image was compared to the 3-D Navex map to assist in anatomic interpretation, mapping and ablation.��The CT image and the NavX image were fused.
8. A total of 50 lesions were given to the 4 pulmonary veins, a roofline, posterior wall substrate modification, and floor line in the left atrium which brought about entrance block in all 4 pulmonary veins, the left atrial roof posterior wall and
floor. There was a focal area of continued connection at the roof just outside the left superior pulmonary vein which was addressed in basket in basket pose. [place] and basket pose were given to all 4 pulmonary veins and flower post was given to
the roofline, posterior wall and floor line. In sinus rhythm after 1 200 J synchronized biphasic shock this restored sinus bradycardia with intermittent competing junctional rhythm and entrance and exit blocks confirmed in all 4 pulmonary veins as
well as the posterior wall roof and floor of the left atrium. The patient was noninducible EPS post procedure.
AV conduction demonstrated one-to-one conduction out of 360 ms. In sinus rhythm there was moderate bileaflet prolapse and regurgitation of the mitral valve and moderate tricuspid regurgitation. Slightly improved compared to yesterday's HUMBERTO.
9. Normal sinus node and AV node function noted.
TOTAL FLOURO TIME: 14.1 minutes 140 mGy
TOTAL RF DURATION: 0 minutes
REVERSAL OF HEPARIN: 35 mg of protamine, slow IV administration
COMPLICATIONS:
None
Intracardiac US shows no pericardial effusion post ablation.
SUMMARY:��
Complex left atrial mapping and ablation.
Isolation of all 4 pulmonary veins, left atrial roof posterior wall and floor of the left atrium were also isolated.
RECOMMENDATIONS:
1. Out of bed in 4 hours
2. Resume anticoagulation
3.� Consider same-day discharge
4.� Continue metoprolol as tolerated
Copy to: Dr. Marcio Valdez
== END 2025-03-03 19:00 | disposition home or self-care (01) ==
LOC: CATH 10:15
PROVIDERS: ATTENDING PHYSICIAN Internal Medicine Cardiovascular Disease; FAMILY PHYSICIAN Internal Medicine
DX: I48.21 Permanent atrial fibrillation (principal); Z79.899 Other long term (current) drug therapy; F32.A Depression, unspecified; F41.9 Anxiety disorder, unspecified; G47.00 Insomnia, unspecified; F43.10 Post-traumatic stress disorder, unspecified; G47.33 Obstructive sleep apnea (adult) (pediatric); I11.0 Hypertensive heart disease with heart failure; I27.20 Pulmonary hypertension, unspecified; J42 Unspecified chronic bronchitis; Z86.16 Personal history of COVID-19; Z86.0100 Personal history of colon polyps, unspecified; M51.369 Other intervertebral disc degeneration, lumbar region without mention of lumbar back pain or lower extremity pain; M19.90 Unspecified osteoarthritis, unspecified site; I50.9 Heart failure, unspecified; I47.10 Supraventricular tachycardia, unspecified; M41.9 Scoliosis, unspecified; Z79.01 Long term (current) use of anticoagulants; Z90.79 Acquired absence of other genital organ(s); Z98.890 Other specified postprocedural states
CPT/HCPCS: C1732; C1894; C1730; C1892; C1759; 85347; 86900; 86901; 93005; 93656; 93657; C1733; C1766

== ENCOUNTER 2025-04-20 11:52 | Emergency (ER) | payer MEDICARE, OTHER, SELFPAY ==
[2025-04-20 12:02] VITALS: BP 121/81
[2025-04-20 12:40] LABS: Hematocrit 41.9 % (39.0-52.0); Hemoglobin 14.2 g/dL (13.0-18.0); Mean Corp Hgb Conc. 33.9 g/dL (33.0-37.0); Mean Corpuscular Volume 92.1 fL (80.0-94.0); Nucleated Red Blood Cells % 0 % (-); Platelet Count 323 10^3/uL (130-400); Red Cell Dist. Width 12.4 % (11.5-14.5)
[2025-04-20 12:51] LABS: ALT (SGPT) 22 U/L (0-50); AST (SGOT) 22 U/L (17-59); Albumin 3.9 g/dl (3.5-5.0); Alkaline Phosphatase 73 U/L (38-126); Blood Urea Nitrogen 13 mg/dl (9-20); Calcium 9.4 mg/dl (8.4-10.2); Carbon Dioxide 23 mmol/L (22-30); Chloride 106 mmol/L (98-107); Glucose 115 mg/dl (70-99); Potassium 4.0 mmol/L (3.5-5.1); Sodium 137 mmol/L (135-145); Total Protein 6.8 g/dl (6.3-8.2); eGFR > 60.00
[2025-04-20] MEDS: DUONEB 3 ML INH ×2 (16:56→17:06)
[2025-04-20] MEDS: DECADRON 10 MG IV (16:59)
[2025-04-20 17:04] VITALS: BMI 23.1
[2025-04-20 17:21] LABS: Troponin I 0.018 ng/ml
[2025-04-20 17:29] VITALS: BP 114/68
--- NOTE | 2025-04-20 17:29 | ED.GENMED ---
History of Present Illness
General
Chief Complaint: Breathing Problem
Source: patient and spouse
Time Seen by Provider: 04/20/25 15:42
History of Present Illness
History of Present Illness:
75-year-old male who presents with persistent cough and shortness of breath. pt states that he has had sx's for months. Over the last few days has been increasingly more weak and short of breath with walking. States he has been coughing up some
sputum initially brown but now yellow. No fevers. Was seen on April 01 at a urgent care and given doxycycline as well as 40 mg daily for 3 days. States initially got little better but then symptoms returned. No hematochezia, no melena, no
hematemesis, no hemoptysis, no chest pain, no leg swelling. does have a history of ablation for A-fib. Additional history by patient's spouse who states that he typically sits up to sleep as recommended by speech therapist in the past. She states
today he really just did not want to get out of bed and she suspects he is a little bit depressed based on the symptoms. Patient reports a history of chronic bronchitis
Past History
Past History
ED Past Medical History: Arrthythmia (afib), Cancer (prostate CA), HTN and Other (Chronic bronchitis)
ED Past Surgical History: Cardiac (cardioversion), Orthopedic and Other (Hip surgery. prostate surgery, )
Social History
Tobacco: Former smoker
Drug: Marijuana
Living: with family
Family History
Family History: Other (No significant)
Phy Exam
Physical Exam
Physical Exam:
CONSTITUTIONAL Patient alert and oriented to person, place and time. Well-appearing. Vital signs reviewed.
HEAD atraumatic, normocephalic.
EYES eyelids normal to inspection, Extraocular muscles intact, Conjunctiva normal, Sclera normal.
NECK normal range of motion, Trachea midline, no jugular venous distention.
RESPIRATORY CHEST No respiratory distress noted, Chest expansion equal, scattered wheezes throughout, rhonchi and more pronounced wheezes noted to the right base
CARDIOVASCULAR regular rate and rhythm, Heart sounds normal.
ABDOMEN abdomen nontender, Bowel sounds normal. No distention.
BACK normal inspection, no obvious deformities
UPPER EXTREMITY range of motion normal, Motor strength normal, no cyanosis, no edema.
LOWER EXTREMITY range of motion normal, Motor strength normal, no cyanosis, no edema.
NEURO Speech normal, No focal motor deficits, Germán coma scale 15, Memory normal, Cranial Nerves intact to screening exam.
SKIN skin warm, dry, and normal in color.
Scores
Heart Failure Risk
Heart Failure Risk Score: Not Applicable
Course
Orders/Labs/Results
Orders:
Orders
04/20/25 12:01
Electrocardiogram (*1) Urgent
Reason for Study: Shortness of Breath
EKG- Treatment ONCE
04/20/25 12:15
Complete Blood Count/With Diff Urgent
Comprehensive Metabolic Panel Urgent
04/20/25 15:41
CR Chest - 2 Views Urgent
Comment:
Reason For Exam: cough
04/20/25 16:17
Ipratropium/Albuterol Sulfate [Duoneb] 3 ml INH R NOW STA
04/20/25 16:20
Ipratropium/Albuterol Sulfate [Duoneb] 3 ml INH R NOW STA
04/20/25 16:21
Dexamethasone Sod Phosphate [Decadron] 10 mg IV NOW STA
04/20/25 16:30
NT-proBNP Urgent
Troponin I Urgent
04/20/25 17:28
LevoFLOXacin [Levaquin] 750 mg PO NOW STA
Abnormal Lab Results
04/20/25
12:15
WBC 16.2 H 10^3/uL
(4.8-10.8)
RBC 4.55 L 10^6/uL
(4.70-6.10)
MCH 31.2 H pg
(27.0-31.0)
Abs Immat Gran (auto) 0.1 H 10^3/uL
(0-0.05)
Absolute Neuts (auto) 13.8 H 10^3/uL
(1.4-6.5)
Absolute Lymphs (auto) 1.1 L 10^3/uL
(1.2-3.4)
Absolute Monos (auto) 1.1 H 10^3/uL
(0.1-0.6)
Neutrophils % 85.3 H %
(42.2-75.2)
Lymphocytes % 6.9 L %
(20.5-51.1)
Creatinine 0.6 L mg/dL
(0.7-1.3)
Glucose 115 H mg/dl
(70-99)
04/20/25 12:15
04/20/25 12:15
Vital Signs
Initial and Last Documented VS:
Initial Vital Signs
Temp Pulse Resp BP Pulse Ox
97.6 F 88 16 121/81 93
04/20/25 12:02 04/20/25 12:02 04/20/25 12:02 04/20/25 12:02 04/20/25 12:02
Last Documented Vital Signs
Temp Pulse Resp BP Pulse Ox
97.6 F 68 16 110/75 91
04/20/25 12:02 04/20/25 17:05 04/20/25 12:02 04/20/25 18:00 04/20/25 18:53
MDM/Problems Addressed
Differential Diagnosis Includes:
Pneumonia, bronchitis, congestive heart failure, bronchiectasis, interstitial lung disease, arrhythmia
MDM/Problems Addressed:
Acute COPD exacerbation, acute pneumonia, chronic bronchitis
Chronic conditions affecting care:
Chronic bronchitis
*Radiology
Radiology exam reviewed: preliminary read by ED provider (Pneumonia)
*Pulse Oximetry
SaO2: 95
Oxygen Mode of Delivery: Room air
Patient hypoxic: no
*EKG
Interpreted by ED Provider?: Yes
Interpretation: normal
Rate: normal
Rhythm: sinus
[place]: left axis deviation
Ischemia: non-specific ST changes
*Computer Systems Information Director Interpretation
Rate: normal
Interpretation: normal
Rhythm: sinus
*Critical Care Note
Total Time (30-74mins, 75-104mins- exclusive of procedures): Not Applicable
Data Reviewed
Review of Other/Old Records Reveals: Discharge Summary (Discharge summary reviewed from October 2024. Patient was admitted for pneumonia)
Source: patient and family
Prescriptions/Medications Considered But Not Given:
Considered IV cefepime and vancomycin but patient is community-acquired. I do think it is reasonable to treat with Levaquin
Further Testing Considered But Not Given:
Consider chest CT but chest x-ray shows pneumonia
Patient Management
Escalation/DeEscalation of care consider admission/obs:
Considered admission given his history of chronic bronchitis and his persistent symptoms. However after DuoNebs, patient appears well and is speaking full sentences. No tachypnea. Will recommend albuterol every 4 hours fguloz-ehk-yoluu for the
next 2 days. Cover with steroids and Levaquin. Patient mitts he does feel little bit better after emergency department treatment
ED Attending Note
-
Portions of this chart may have been created with voice recognition software.� Occasional wrong word or��sound alike� substitutions may have occurred due to the inherent limitations of voice recognition software.
Discharge Plan
Departure
Patient Disposition: Home (Routine Discharge)
Date of Disposition: 04/20/25
Time of Disposition: 17:42
Patient with high blood pressure during this ER visit?: No
Discharge Problem:
Pneumonia
Instructions: Shortness of Breath (Dyspnea) (DC), Community-acquired pneumonia in adults
Prescriptions:
New
prednisone 10 mg Tablet
See Rx Instructions .ROUTE .COMPLEX Qty: 45 0RF
Rx Instructions:
Take By Mouth:
50 mg daily x3 days, 40 mg daily x3 days,
30 mg daily x3 days, 20 mg daily x3 days,
10 mg daily x3 days
levofloxacin 750 mg tablet
750 mg PO DAILY 6 Days Qty: 6 0RF
No Action
therapeutic multivitamin Tablet
1 tab PO DAILY
omega 3-pbr-kvs-fish oil [Fish Oil] 1,000 mg (120 mg-180 mg) Capsule
1 cap PO DAILY
trazodone 50 mg Tablet
25 mg PO HSPRN PRN (Reason: sleep)
paroxetine HCl 30 mg Tablet
30 mg PO BID
metoprolol succinate 50 mg tablet extended release 24 hr
50 mg PO BID
furosemide 20 mg Tablet
20 mg PO DAILY Qty: 1 0RF
Jardiance 25 mg Tablet
25 mg PO NOON
spironolactone 25 mg tablet
25 mg PO DAILY
levalbuterol HCl 0.63 mg/3 mL Solution For Nebulization
0.63 mg INHALATION Q6H PRN (Reason: SOB)
albuterol sulfate 2.5 mg/0.5 mL Solution For Nebulization
2.5 mg INHALATION Q4H PRN (Reason: SOB)
Xarelto 20 mg Tablet
20 mg PO QPM Qty: 0 0RF
Referrals:
Pauline James MD [Family Provider, Internal Medicine]
Activity Restrictions/Additional Instructions:
Please use your albuterol every 4 hours as needed. Please see your doctor in the next 3 to 5 days for follow-up and reevaluation. Please also have a repeat chest x-ray in the next 1 to 2 weeks to ensure that your pneumonia has cleared. If it is
not clear, further workup may be necessary. Return immediately for difficulty breathing, chest pain, shortness of breath, leg swelling or any other concerns.
Interventions
Interventions:
*Risk Screen - Suicide Last Done: 04/20/25 12:02
*General Assessment Last Done: 04/20/25 18:55
*Neglect/Abuse Screening Last Done: 04/20/25 12:02
*Nursing Disposition Last Done: 04/20/25 18:55
ED- Cardiac Assessment Last Done: 04/20/25 18:54
ED- Pulmonary Assessment Last Done: 04/20/25 18:53
Discharge Date and Time
Discharge Date/Time: 04/20/25 18:56
Print Language: CYMRAES
[2025-04-20 18:00] VITALS: BP 110/75
[2025-04-20] MEDS: LEVAQUIN 750 MG PO (18:26)
== END 2025-04-20 18:56 | disposition home or self-care (01) ==
LOC: EMR 11:52
PROVIDERS: Emergency Medicine; EMERGENCY PHYSICIAN Emergency Medicine; FAMILY PHYSICIAN Internal Medicine
DX: J18.9 Pneumonia, unspecified organism (principal); I48.91 Unspecified atrial fibrillation; I10 Essential (primary) hypertension; J44.1 Chronic obstructive pulmonary disease with (acute) exacerbation; Z87.891 Personal history of nicotine dependence
CPT/HCPCS: 99284; 94640; 96374; 71046; 80053; 83880; 84484; 85025; 93005

== ENCOUNTER → 2025-09-07 11:31 | Outpatient (REF) | payer MEDICARE, OTHER, SELFPAY | LOC: PAVMRI 11:31 | PROVIDERS: ATTENDING PHYSICIAN Specialist; FAMILY PHYSICIAN Internal Medicine | DX: M25.811 Other specified joint disorders, right shoulder (principal) | CPT/HCPCS: 73221 ==

== ENCOUNTER → 2025-09-08 13:19 | Outpatient (REF) | payer MEDICARE, OTHER, SELFPAY | LOC: HWRAD 13:19 | PROVIDERS: ATTENDING PHYSICIAN Thoracic Surgery (Cardiothoracic Vascular Surgery); FAMILY PHYSICIAN Internal Medicine | DX: I77.810 Thoracic aortic ectasia (principal) | CPT/HCPCS: 71250 ==

== ENCOUNTER 2025-09-27 06:23 | Day surgery (SDC) | payer MEDICARE, OTHER, SELFPAY ==
[2025-09-27 13:13] VITALS: BMI 23.1
[2025-09-27 13:15] VITALS: BP 117/54
[2025-09-27 14:41] VITALS: BP 109/63
[2025-09-27 14:45] VITALS: BP 118/67
[2025-09-27 15:00] VITALS: BP 127/64
[2025-09-27 15:15] VITALS: BP 91/79
[2025-09-27 15:18] VITALS: BP 119/78
== END 2025-09-27 15:25 | disposition home or self-care (01) ==
LOC: SDS 06:23
PROVIDERS: ATTENDING PHYSICIAN Internal Medicine Gastroenterology
DX: K21.00 Gastro-esophageal reflux disease with esophagitis, without bleeding (principal); K22.89 Other specified disease of esophagus; Q39.9 Congenital malformation of esophagus, unspecified; K44.9 Diaphragmatic hernia without obstruction or gangrene; R13.10 Dysphagia, unspecified; R12 Heartburn; Z79.01 Long term (current) use of anticoagulants
CPT/HCPCS: 43239; 88305